=== PATIENT | female | born 1980 | race Caucasian/White ===

== ENCOUNTER 2021-06-19 20:46 | Emergency (ER) | payer MEDICAID, SELFPAY ==
[2021-06-19 20:47] VITALS: BP 132/97; PULSE 94; RESP 18; TEMP 36.3; O2SAT 97; BMI 25.7
[2021-06-19] MEDS: 0.9% Normal Saline 1,000 ML 1000 ML IV (21:54)
[2021-06-19 21:55] LABS: Absolute Lymphocyte Count 1.83 X10^3/uL (0.83-4.51); Absolute Neutrophil Count 11.7 X10^3/uL (2.0-7.7); Basophil# 0.06 X10^3/uL; Basophil% 0.4 % (0-1); Eosinophil# 0.07 X10^3/uL; Eosinophils% 0.5 % (0-5); Hemoglobin 14.6 g/dL (12.0-15.0); Lymphocyte # 1.83 X10^3/ul (0.83-4.51); Lymphocyte % 12.9 % (19-41); Mean Corpuscular Hgb 30.5 pg (27.0-32.0); Mean Corpuscular Volume 89.8 fL (81-99); Mean Platelet Vol. 9.8 fl (6.2-12.0); Monocyte# 0.45 X10^3/uL; Monocyte% 3.2 % (0-10); NRBC Flagged by Analyzer 0 % (0-5); Neutrophil # 11.67 X10^3/uL (2.7-7.7); Neutrophil % 82.5 % (47-70); Platelet Count 363 K/mm3 (150-450); RBC Distribution Width CV 14.4 % (11.6-14.6); RBC Distribution Width SD 47.6 fl (35.1-43.9); Red Blood Count 4.79 M/mm3 (4.2-5.4); White Blood Count 14.2 K/mm3 (4.4-11.0)
[2021-06-19] MEDS: Ondansetron 4 MG/2 ML Vial IV (21:56)
[2021-06-19] MEDS: LORazepam 2 MG/ML Syringe 0.5 MG IV (21:56)
[2021-06-19 22:04] LABS: Anion Gap 9 (5-15); BUN 10 mg/dL (7-18); BUN/Creat Ratio 11.8 RATIO (10-20); Calcium,Total 9.2 mg/dL (8.5-10.1); Chloride 101 mmol/L (98-107); Creatinine, Serum 0.85 mg/dL (0.55-1.02); EST Glomerular Filtration Rate 77 mL/min (>60); Est Glom Filt Rate - Afr Amer 94 mL/min (>60); Estimated Creatinine Clearance 73.69 ml/min; Glucose 129 mg/dL (74-106); Potassium 3.8 mmol/L (3.5-5.1); Sodium Level 136 mmol/L (136-145)
[2021-06-19 22:43] VITALS: BP 120/78; PULSE 76; RESP 14; O2SAT 98
--- NOTE | 2021-06-19 22:53 | EDS_ITS ---
HPI History of Present Illness Chief Complaint: Nausea/Vomiting Informant: patient Onset/Context/Timing Onset: Today Current Severity: Moderate Maximum Severity: Moderate Narrative Narrative: Patient presents secondary to nausea and vomiting along with anxiety and shakiness. Patient states 4 days ago her Prozac was stopped and she was started on Luvox. She began not feeling well yesterday and today progressed to the above symptoms. She was concerned that she was withdrawing from her Prozac so she did take a dose of that tonight. No fever or chills have been noted. [facility] Medical History Asthma Depression Mitral valve prolapse Home Medications albuterol sulfate 2.5 mg INHALATION Q4H PRN PRN 04/17/16 [History Last Taken Unknown] fluvoxamine 50 mg PO DAILY 06/19/21 [History Last Taken 06/18/21 20:00] hydroxyzine HCl [Atarax] 50 mg PO TID 06/19/21 [History Last Taken Unknown] ondansetron 4 mg PO Q8H PRN #10 tab 06/19/21 [Rx Last Taken Unknown] vit D3-folic pbge-I2-D1-B12 1 tab PO DAILY 06/19/21 [History Last Taken Unknown] Allergy/AdvReac Type Severity Reaction Status Date / Time clindamycin Allergy Hives Verified 06/19/21 20:47 erythromycin base Allergy Hives Verified 06/19/21 20:47 oxcarbazepine Allergy Hives Verified 06/19/21 20:47 [From Trileptal] Penicillins Allergy Hives Verified 06/19/21 20:47 pseudoephedrine AdvReac Vomiting Verified 06/19/21 20:47 Social History Smoking Status: Current every day smoker tobacco type: cigarettes ROS ROS ED Constitutional Constitutional ED: Denies chills or fever(s) Eyes Eyes: Denies change in vision ENT ENT ED: Denies sore throat Cardiovascular Cardiovascular: Denies chest pain Respiratory/Chest Respiratory/Chest: Denies cough or dyspnea Gastrointestinal Gastrointestinal: Reports nausea and vomiting; Denies abdominal pain or diarrhea Genitourinary Genitourinary ED: Denies dysuria Musculoskeletal Musculoskeletal: Reports myalgias; Denies back pain Integumentary Denies rash Neurologic Neurologic: Denies headache(s) or weakness Psychiatric Psychiatric: Reports anxiety; Denies depression Allergic/Immunologic Allergic/Immunologic ED: Denies urticaria EXAM Physical Exam Const Vital Signs: 06/19/21 20:47 06/19/21 22:43 06/19/21 22:56 Temperature 97.3 F L Temperature Source Temporal Pulse Rate 94 76 62 Respiratory Rate 18 14 15 Blood Pressure 132/97 H 120/78 112/73 Blood Pressure Mean 108 92 Pulse Ox 97 98 97 Oxygen Delivery Method Room Air Room Air Positive well nourished and well developed General Appearance ED: well developed Eyes PERRL and EOMs intact bilaterally Neck supple Chest Wall inspection of chest normal and palpation of chest normal Resp normal respiratory effort and clear to auscultation bilaterally Cardio regular rate and regular rhythm GI non-tender Auscultation: hypoactive bowel sounds Palpation: soft Neuro oriented x3 Sensorium / Orientation: alert Psych mental status grossly normal Skin no rashes or lesions noted MDM MDM MDM Narrative Medical decision making narrative: Patient is given IV fluids along with Zofran. She is given a small dose of Ativan help with anxiety. Lab work ordered. Lab Data Labs: Laboratory Results - last 24 hr 06/19/21 06/19/21 21:25 21:25 WBC 14.2 H RBC 4.79 Hgb 14.6 Hct 43.0 MCV 89.8 MCH 30.5 MCHC 34.0 RDW Std Deviation 47.6 H RDW Coeff of Pee 14.4 Plt Count 363 MPV 9.8 Immature Gran % (Auto) 0.500 Neut % (Auto) 82.5 H Lymph % (Auto) 12.[address] [place] % (Auto) 3.2 Eos % (Auto) 0.5 Baso % (Auto) 0.4 Absolute Neuts (auto) 11.7 H Absolute Lymphs (auto) 1.83 Nucleated RBC % 0 Sodium 136 Potassium 3.8 Chloride 101 Carbon Dioxide 26.0 Anion Gap 9 BUN 10 Creatinine 0.85 Estim Creat Clear Calc 73.69 Est GFR (MDRD) Af Amer 94 Est GFR (MDRD) Non-Af 77 BUN/Creatinine Ratio 11.8 Glucose 129 H Calcium 9.2 Treatment and Re-Evaluation Comments:: On repeat evaluation patient significantly improved. Vital signs unremarkable. I did discuss with her that I am concerned that the symptoms she had may be from stopping her Prozac and the Luvox not compromising enough to prevent her from having symptoms. I encouraged her to go back on her Prozac and call her doctor on Monday. She is given a prescription for Zofran help with nausea. Discharge Plan Triage Chief Complaint: Nausea/Vomiting ED Provider: Marium Sharp Dx/Rx/DC Orders Clinical Impression: Vomiting Instructions: ED Vomiting (Adult) Prescriptions: New ondansetron 4 mg tablet,disintegrating 4 mg PO Q8H PRN (Reason: nausea and vomiting) Qty: 10 RF: 0 No Action albuterol sulfate 2.5 MG/3 ML solution for nebulization 2.5 mg inhalation Q4H PRN PRN (Reason: Sob &/Or Wheezing) RF: 0 fluvoxamine 50 mg Tablet 50 mg PO DAILY RF: 0 hydroxyzine HCl [Atarax] 50 mg Tablet 50 mg PO TID RF: 0 vit D3-folic [id number]-[id number]-B12 2,000-800-0.32 unit-mcg-mg Tablet 1 tab PO DAILY RF: 0 Referrals: Shai Brand MD [STAFF PHYSICIAN] - 3-5 Days Disposition Disposition: Home, Self Care Discharge Date/Time: 06/19/21 23:40
[2021-06-19 22:56] VITALS: BP 112/73; PULSE 62; RESP 15; O2SAT 97
== END 2021-06-19 23:40 | disposition home or self-care (01) ==
PROVIDERS: Emergency Provider Emergency Medicine
DX: R11.2 Nausea with vomiting, unspecified (principal); F41.9 Anxiety disorder, unspecified; F17.210 Nicotine dependence, cigarettes, uncomplicated; F32.9 Major depressive disorder, single episode, unspecified; I34.1 Nonrheumatic mitral (valve) prolapse; J45.909 Unspecified asthma, uncomplicated
CPT/HCPCS: 80048; 85025; 96361; 96374; 96375; 99284; A4216; J2405

== ENCOUNTER 2021-09-01 16:10 | Emergency (ER) | payer MEDICAID, SELFPAY ==
[2021-09-01 16:11] VITALS: BP 122/85; PULSE 104; RESP 18; TEMP 37; O2SAT 96; BMI 27.8
--- NOTE | 2021-09-01 16:31 | EKG12_ITS ---
Test Reason : CP Blood Pressure : / mmHG Vent. Rate : 092 BPM Atrial Rate : 092 BPM P-R Int : 132 ms QRS Dur : 078 ms QT Int : 380 ms P-R-T Axes : 052 026 028 degrees QTc Int : 469 ms Normal sinus rhythm Nonspecific ST and T wave abnormality Abnormal ECG Confirmed by PRIETO MCLEAN, VINCENZO ([id number]), senior technical editor EITAN BRIGHT ([id number]) on 09/02/2021 1:31:15 PM Referred By: PL Confirmed By:PENG MOREAU MD
--- NOTE | 2021-09-01 16:32 | EDS_ITS ---
HPI History of Present Illness Chief Complaint: Chest Pain Narrative Narrative: Patient with past medical history of panic attacks states that she was recently diagnosed with familial hypercholesterolemia and was started on Lipitor yesterday. She presents with chest pain that began approximately an hour ago. She is concerned because I do not want to have a heart attack. She states that she has midsternal chest pain and she had sharp pain down her left arm. It did not radiate to her jaw. No nausea or vomiting. No shortness of breath, however she was recently diagnosed with COVID-19 6 days ago. Her symptoms of COVID-19 were not fever or cough but she had sore throat, and her son tested positive. She denies any exacerbating or alleviating factors with the exception that pacing around the room actually makes her pain better. She denies any leg swelling. Last menstrual period was 5 days ago but she has had bilateral tubal ligation and states that she is suazo and does not engage in sexual intercourse with men. PFSH PFS Medical History Asthma Depression Mitral valve prolapse Home Medications albuterol sulfate 2.5 mg INHALATION Q4H PRN PRN 04/17/16 [History Last Taken Unknown] fluvoxamine 50 mg PO DAILY 06/19/21 [History Last Taken 06/18/21 20:00] hydroxyzine HCl [Atarax] 50 mg PO TID 06/19/21 [History Last Taken Unknown] ondansetron 4 mg PO Q8H PRN #10 tab 06/19/21 [Rx Last Taken Unknown] vit D3-folic [id number]-[id number]-B12 1 tab PO DAILY 06/19/21 [History Last Taken Unknown] Allergy/AdvReac Type Severity Reaction Status Date / Time clindamycin Allergy Hives Verified 09/01/21 16:14 erythromycin base Allergy Hives Verified 09/01/21 16:14 oxcarbazepine Allergy Hives Verified 09/01/21 16:14 [From Trileptal] Penicillins Allergy Hives Verified 09/01/21 16:14 pseudoephedrine AdvReac Vomiting Verified 09/01/21 16:14 Social History Smoking Status: Current every day smoker tobacco type: cigarettes ROS ROS ED ROS Narrative Constitutional: No fever, no chills. HEENT: No sore throat. No neck pain. No loss of vision. No rhinorrhea. Cardiovascular: Positive left chest pain and heaviness. Radiated to and down left arm, but was sharp and stabbing. No palpitations. No pedal edema. Respiratory: No cough, no shortness of breath. Abdominal: No abdominal pain. No nausea. No vomiting. Genitourinary: No dysuria. No hematuria. Musculoskeletal: No myalgias. No arthralgias. Neurologic: No headaches. No dizziness. No lightheadedness. Skin: No rash. No change in color. Psychiatric: No depression. No anxiety. EXAM Physical Exam Narrative Exam Narrative: Afebrile. Vital signs noted. HEENT: Normocephalic. Atraumatic. PERRL, EOMI. Neck soft and supple. No point tenderness or step off. Cardiovascular: Regular rate and rhythm. Intermittent tachycardia no murmurs, rubs, or gallops appreciated. Respiratory: No tachypnea. Lungs clear to auscultation bilaterally. Gastrointestinal: Abdomen soft, nontender, with normoactive bowel sounds. No rebound or guarding. Neurological: Awake. Alert. Nonfocal, nonlateralizing. Skin: No rash. Normal color. No pallor. Musculoskeletal: No pedal edema. Full range of motion extremities. Const Vital Signs: 09/01/21 16:11 09/01/21 17:18 09/01/21 18:14 Temperature 98.6 F Temperature Source Temporal Pulse Rate 104 H 84 74 Respiratory Rate 18 14 14 Blood Pressure 122/85 H 114/76 111/77 Blood Pressure Mean 97 88 88 Pulse Ox 96 97 98 Oxygen Delivery Method Room Air Room Air Heart Score History: Slightly/Non-Suspicious ECG: Normal Age: </= 45 years Risk Factors: No Risk Factors Troponin: </= Normal Limit Score: 0 MDM MDM MDM Narrative Medical decision making narrative: Chest pain work-up was pursued. EKG dem onstrates normal sinus rhythm at 92 bpm without ectopy or acute ST changes, no significant change from previous. CBC is grossly unremarkable. Electrolyte panel shows sodium slightly low at 3.4. Initial high-sensitivity troponin negative at 4. Repeat high-sensitivity troponin also negative at 4 for a negative delta troponin. Chest x-ray shows no acute process. With her low heart score, I feel she can be discharged safely home with follow-up and she accepts the 2% risk of major coronary artery event in the next 6 weeks. She will follow-up with her primary care physician. I do feel that some of her chest pain may be associated with anxiety. Return instructions to the emergency department were reviewed. Disposition was discharged home in stable condition. Lab Data Attestation: I reviewed the patient's lab results. Labs: Laboratory Results - last 24 hr 09/01/21 09/01/21 09/01/21 16:40 16:40 18:40 WBC 8.5 RBC 4.60 Hgb 13.8 Hct 40.1 MCV 87.2 MCH 30.0 MCHC 34.4 RDW Std Deviation 43.0 RDW Coeff of Pee 13.4 Plt Count 336 MPV 9.3 Immature Gran % (Auto) 0.200 Neut % (Auto) 70.9 H Lymph % (Auto) 20.0 [place] % (Auto) 7.6 Eos % (Auto) 0.7 Baso % (Auto) 0.6 Absolute Neuts (auto) 6.0 Absolute Lymphs (auto) 1.69 Nucleated RBC % 0 Sodium 137 Potassium 3.4 L Chloride 100 Carbon Dioxide 28.0 Anion Gap 9 BUN 9 Creatinine 0.69 Estim Creat Clear Calc 90.78 Est GFR (MDRD) Af Amer 119 Est GFR (MDRD) Non-Af 98 BUN/Creatinine Ratio 13.0 Glucose 103 Calcium 8.9 Troponin I High Sens 4 4 Radiography Diagnostic Testing: Clinical Impression(s) from Imaging Studies Chest X-Ray 09/01/21 16:53 IMPRESSION: There are no acute findings. Electronically Signed: Alan Elizabeth MD at 17:06 EST , Service support , Discharge Plan Triage Chief Complaint: Chest Pain ED Provider: Nik Tomas Dx/Rx/DC Orders Clinical Impression: Chest pain, Panic attacks, COVID Instructions: Coronavirus Disease 2019 (COVID-19): Caring for Yourself or Others, ED Chest Pain, Uncertain Cause, ED Panic Attack Prescriptions: No Action albuterol sulfate 2.5 MG/3 ML solution for nebulization 2.5 mg inhalation Q4H PRN PRN (Reason: Sob &/Or Wheezing) RF: 0 fluvoxamine 50 mg Tablet 50 mg PO DAILY RF: 0 hydroxyzine HCl [Atarax] 50 mg Tablet 50 mg PO TID RF: 0 vit D3-folic yhfr-A2-X9-B12 2,000-800-0.32 unit-mcg-mg Tablet 1 tab PO DAILY RF: 0 ondansetron 4 mg tablet,disintegrating 4 mg PO Q8H PRN (Reason: nausea and vomiting) Qty: 10 RF: 0 Primary Care Provider: Meron Ram NP Referrals: Meron Ram NP, SLOT MACHINE KEY PERSON-C [Primary Care Provider] - Disposition Disposition: Home, Self Care
[2021-09-01 16:47] LABS: Absolute Lymphocyte Count 1.69 X10^3/uL (0.83-4.51); Basophil# 0.05 X10^3/uL; Basophil% 0.6 % (0-1); Eosinophil# 0.06 X10^3/uL; Eosinophils% 0.7 % (0-5); Hematocrit 40.1 % (37-47); Hemoglobin 13.8 g/dL (12.0-15.0); Lymphocyte # 1.69 X10^3/ul (0.83-4.51); Mean Corp Hgb Conc 34.4 g/dL (32-36); Mean Corpuscular Volume 87.2 fL (81-99); Mean Platelet Vol. 9.3 fl (6.2-12.0); Monocyte# 0.64 X10^3/uL; Monocyte% 7.6 % (0-10); NRBC Flagged by Analyzer 0 % (0-5); Neutrophil # 5.99 X10^3/uL (2.7-7.7); Neutrophil % 70.9 % (47-70); Platelet Count 336 K/mm3 (150-450); RBC Distribution Width CV 13.4 % (11.6-14.6); White Blood Count 8.5 K/mm3 (4.4-11.0)
--- NOTE | 2021-09-01 16:53 | RAD_ITS ---
STUDY: X-RAY CHEST REASON FOR EXAM: Female, 41 years old. CHEST PAIN chest pain TECHNIQUE: XR Chest 1 View COMPARISON: None FINDINGS: There is no demonstrated pleural abnormality. Normal size heart. Normal mediastinum and kurtis. Normal visualized pulmonary arteries. Normal visualized aortic arch and descending thoracic aorta. Normal visualized thoracic spine. Normal visualized ribs, clavicles, and shoulders. There is no demonstrated abnormality of the visualized soft tissue structures of the upper abdomen. RAD/Chest 1 View (Portable) IMPRESSION: There are no acute findings. Electronically Signed: Alan Elizabeth MD at 17:06 EST , Service support ,
[2021-09-01 17:06] LABS: Anion Gap 9 (5-15); BUN 9 mg/dL (7-18); Calcium,Total 8.9 mg/dL (8.5-10.1); Chloride 100 mmol/L (98-107); Creatinine, Serum 0.69 mg/dL (0.55-1.02); EST Glomerular Filtration Rate 98 mL/min (>60); Est Glom Filt Rate - Afr Amer 119 mL/min (>60); Estimated Creatinine Clearance 90.78 ml/min; Glucose 103 mg/dL (74-106); Potassium 3.4 mmol/L (3.5-5.1); Sodium Level 137 mmol/L (136-145); Troponin-I HS 4 pg/mL (3.0-54.0)
[2021-09-01 17:18] VITALS: BP 114/76; PULSE 84; RESP 14; O2SAT 97; O2SAT 98
[2021-09-01 18:14] VITALS: BP 111/77; PULSE 74; RESP 14; O2SAT 98
[2021-09-01 19:05] LABS: Troponin-I HS 4 pg/mL (3.0-54.0)
[2021-09-01 19:43] VITALS: BP 111/77; PULSE 74; RESP 13; O2SAT 98
== END 2021-09-01 19:47 | disposition home or self-care (01) ==
PROVIDERS: Emergency Provider Emergency Medicine; PCP Registered Nurse; Visit Provider Emergency Medicine
DX: U07.1 COVID-19 (principal); F41.0 Panic disorder [episodic paroxysmal anxiety]; R07.9 Chest pain, unspecified; F17.210 Nicotine dependence, cigarettes, uncomplicated
CPT/HCPCS: 71045; 80048; 84484; 85025; 93005; 99285; J7030

== ENCOUNTER 2022-08-31 17:49 | Emergency (ER) | payer MEDICAID, SELFPAY ==
[2022-08-31 17:49] VITALS: BP 113/83; PULSE 89; RESP 16; TEMP 36.2; O2SAT 95; BMI 26.6
--- NOTE | 2022-08-31 18:32 | EDS_ITS ---
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 She presents because of facial flushing and swelling, and throat tightening that happened after she took a shot of Amaretto at 5:10 PM, almost an hour and a half ago. She states she did not realize that there were almonds and apricot extract in the shot. She did not have to use her epinephrine. She became worried because of the facial swelling and throat tightening, but that has improved considerably. She came straight to the emergency department for evaluation. [facility] Medical History Asthma Depression Mitral valve prolapse Home Medications albuterol sulfate 2.5 mg/3 mL (0.083 %) solution for nebulization 2.5 mg inhalation Q4H PRN PRN Sob &/Or Wheezing 04/17/16 [History Last Taken Unknown] fluvoxamine 50 mg tablet 50 mg PO DAILY 06/19/21 [History Last Taken 06/18/21 20:00] hydroxyzine HCl 50 mg tablet 50 mg PO TID 06/19/21 [History Last Taken Unknown] ondansetron 4 mg disintegrating tablet 4 mg PO Q8H PRN nausea and vomiting #10 tabs 06/19/21 [Rx Last Taken Unknown] vit D3-folic acid-vit B2-B6-B12 2,000 unit-800 mcg-0.32 mg tablet 1 tab PO DAILY 06/19/21 [History Last Taken Unknown] Allergy/AdvReac Type Severity Reaction Status Date / Time clindamycin Allergy Hives Verified 08/31/22 17:51 erythromycin base Allergy Hives Verified 08/31/22 17:51 oxcarbazepine Allergy Hives Verified 08/31/22 17:51 [From Trileptal] Penicillins Allergy Hives Verified 08/31/22 17:51 tree nut [tree nuts] Allergy Swelling Verified 08/31/22 17:51 pseudoephedrine AdvReac Vomiting Verified 08/31/22 17:51 Social History Smoking Status: Current every day smoker tobacco type: cigarettes ROS ROS ED ROS Narrative Constitutional: No fever, no chills. HEENT: No sore throat. Positive throat tightening. Facial flushing and swelling. No neck pain. No loss of vision. No rhinorrhea. Cardiovascular: No chest pain. No palpitations. No pedal edema. Respiratory: No cough, no shortness of breath. Abdominal: No abdominal pain. No nausea. No vomiting. Genitourinary: No dysuria. No hematuria. Musculoskeletal: No myalgias. No arthralgias. Neurologic: No headaches. No dizziness. No lightheadedness. Skin: No rash. No change in color. Psychiatric: No depression. No anxiety. EXAM Physical Exam Narrative Exam Narrative: Afebrile. Vital signs noted. HEENT: Normocephalic. Atraumatic. PERRL, EOMI. Neck soft and supple. No point tenderness or step off. Airway patent. No drooling or trismus. Minimal facial flushing. No appreciable swelling around eyes. No angioedema. No Kirk angina. Cardiovascular: Regular rate and rhythm. No murmurs, rubs, or gallops appreciated. Respiratory: No tachypnea. Lungs clear to auscultation bilaterally. No wheezing. Gastrointestinal: Abdomen soft, nontender, with normoactive bowel sounds. No rebound or guarding. Neurological: Awake. Alert. Nonfocal, nonlateralizing. Skin: No rash. Normal color. No pallor. Musculoskeletal: No pedal edema. Full range of motion extremities. Const Vital Signs: 08/31/22 17:49 08/31/22 19:49 Temperature 97.2 F L Temperature Source Temporal Pulse Rate 89 Respiratory Rate 16 15 Blood Pressure 113/83 H Blood Pressure Mean 93 Pulse Ox 95 98 Oxygen Delivery Method Room Air Room Air MDM MDM MDM Narrative Medical decision making narrative: Patient was given Benadryl 25 mg orally. She is not hypotensive or tachycardic. Pulse ox is 95% on room air without evidence of hypoxia. I do not feel that epinephrine is currently indicated. She was told to avoid use of this substance in the future as there are tree nuts and apricots contained within that alcohol. I discussed use of steroids with her and she declined. I do not necessarily feel that other histamine blockers are indicated. This was most likely only 1 ounce to 1-1/2 ounces of the liquor that she had in a shot. After observation in the emergency department for approximately 2 hours and 45 minutes, repeat examination was performed. She has less swelling around her eyes and she states her face does not feel flushed. Her airway remains patent and her pulse ox is 98% on room air. I do feel that this has been approximately 4 hours since the ingestion of her allergen, and that she is less likely to have a delayed reaction. I feel she can be discharged safely home with follow-up. She still has her EpiPen should she need it. She will continue [id number] Benadryl 25 to 50 mg by mouth every 4-6 hours as needed especially over the next 48 hours. She will follow-up with her primary care provider. I feel she can be discharged safely home with follow-up. Return instructions to the emergency department were reviewed. Disposition is discharged home in stable condition. Discharge Plan Triage Chief Complaint: Allergic Reaction ED Provider: Nik Tomas Dx/Rx/DC Orders Clinical Impression: Allergic reaction, Facial flushing Instructions: ED General Allergic Reactions Prescriptions: No Action albuterol sulfate 2.5 MG/3 ML solution for nebulization 2.5 mg inhalation Q4H PRN PRN (Reason: Sob &/Or Wheezing) fluvoxamine 50 mg Tablet 50 mg PO DAILY hydroxyzine HCl [Atarax] 50 mg Tablet 50 mg PO TID vit D3-folic gzpf-S0-P1-B12 2,000-800-0.32 unit-mcg-mg Tablet 1 tab PO DAILY ondansetron 4 mg tablet,disintegrating 4 mg PO Q8H PRN (Reason: nausea and vomiting) Qty: 10 0RF Primary Care Provider: Meron Ram NP Referrals: Meron Ram NP, CUSTOMER ENERGY SPECIALIST-C [Primary Care Provider] - 3-5 Days if not improving Activity Restrictions/Additional Instructions: You may continue Benadryl 25 to 50 mg by mouth every 4-6 hours as needed, especially over the next 2 days. Avoid use or consumption of amaretto in the future. Disposition Disposition: Home, Self Care
[2022-08-31] MEDS: DiphenhydrAMINE 25 MG Capsule PO (18:45)
[2022-08-31 19:49] VITALS: RESP 15; O2SAT 98
[2022-08-31 20:52] VITALS: BP 115/74; PULSE 65; RESP 18; O2SAT 97
== END 2022-08-31 20:52 | disposition home or self-care (01) ==
PROVIDERS: Emergency Provider Emergency Medicine; PCP Registered Nurse; Visit Provider Emergency Medicine
DX: T78.40XA Allergy, unspecified, initial encounter (principal); F17.210 Nicotine dependence, cigarettes, uncomplicated; J45.909 Unspecified asthma, uncomplicated; F32.A Depression, unspecified; R23.2 Flushing
CPT/HCPCS: 99283; A4216

== ENCOUNTER 2023-02-23 08:32 | Day surgery (SDC) | payer MEDICAID, SELFPAY ==
[2023-02-23] VITALS (7 sets, daily range): BP systolic 101–110; BP diastolic 66–81; PULSE 55–85; RESP 16–18; TEMP 36.3–37; O2SAT 99–100; BMI 27.5
--- NOTE | 2023-02-23 | COLBX_PTH ---
PATIENT: CHARMAINE JARA LOC: EN U#:[id number] AGE/SX: 42/F ROOM: RE02/23/[address]: Dr. Bradley Silva DO : 1980 BED: DIS: 02/23/2023 SPEC #: [id number] RECD: 02/23/23 13:15 STATUS: MORIS BELLE #: [id number] JORDYN: 02/23/23 00:[address]: Bradley Silva DEPT: SURGICAL PATHOLOGY RECD BY: Jayna Sanders ENTERED: 02/23/23 14:08 SP TYPE: COLON BX OTHR DR: Meron Ram, MARKETING TECHNOLOGIST-C Tissues: A - Duodenum, NOS B - Esophagus, NOS Procedures: Special Stain Group II Surgery Specimen Level IV Alcian Blue/PAS (control) HEADER OPERATION: Colonoscopy, EGD ([facility] [place]), biopsy PRE-OP DIAGNOSIS: Regurgitation of food, family history colon cancer TISSUE SUBMITTED: A - Duodenum biopsy, B - Distal esophagus biopsy MICROSCOPIC DIAGNOSIS A. Duodenum, biopsy: Fragments of duodenal mucosa, no pathologic diagnosis. B. Distal esophagus, biopsy: Fragments of gastroesophageal mucosa with focal minimal intestinal metaplasia (goblet cell metaplasia). Negative for dysplasia. See comment. DARRICK:mandi 02/24/2023 COMMENT B. Alcian blue/PAS stain with matched control is used in the evaluation of the specimen. MICROSCOPIC DESCRIPTION Slides are reviewed. GROSS DESCRIPTION A - Received in fixative is one container labeled with the patient's name and designated duodenum biopsy. The specimen consists of multiple irregular fragments of light graff soft tissue that in aggregate measure 1.0 x 0.4 x 0.1 cm. The specimen is totally submitted in one cassette. B - Received in fixative is one container labeled with the patient's name and designated distal esophagus biopsy. The specimen consists of multiple irregular fragments of light graff soft tissue that in aggregate measure 1.2 x 0.4 x 0.1 cm. The specimen is totally submitted in one cassette. / DARRICK:mandi 02/23/2023 TC:3 CPT: 64598 x2, 27247
[2023-02-23] MEDS: Lactated Ringers 1,000 ML 15 ML IV (08:45)
--- NOTE | 2023-02-23 09:23 | PCM.HP.BLA ---
History and Physical Date of Admission: 02/23/23 FH colon cancer Details: CHARMAINE JARA, is a 42 F who presents to the office today in need of colonoscopy due to FH colon cancer. Her father was diagnosed with stage 4 colon cancer age 58. Her mother had a severe paraesophageal hernia. Pt has been told she has a small hiatal hernia. No prior endoscopies. She gets regurgitation 1-2x per week, occurs when she lies down after dinner, or from oily food or citrus. Used to take Pepcid but it didn't help. No heartburn or dysphagia. No abdominal pain. No nausea or vomiting. No diarrhea, constipation, melena, hematochezia. PMH: asthma, depression, anxiety, mitral valve prolapse PSH: , appy Exam Const General: cooperative, healthy appearing and comfortable Orientation: alert, awake and oriented x3 HENMT Head: normal to inspection Eyes General: appearance normal, both eyes and all related structures Resp Effort & Inspection: normal respiratory effort GI Inspection: normal to inspection Skin General: no rashes or lesions noted Neuro Speech: speech normal Psych Mood: congruent mood Quality Reporting Tobacco Screening ([facility] 138) Smoking Status: Current every day smoker Assessment and Plan Assessment and Plan (1) Regurgitation of food: Status: Chronic Plan: 42 yr old female with regurgitation, FH colon cancer. We discussed hiatal hernia. She will avoid lying down after eating. She is almost 43 yr, age to start colonoscopy screening. Will get EGD and colonoscopy, with office f/u 2 wks later. (2) FH: colon cancer in first degree relative <60 years old: Status: Acute Plan: see above Medications: Discontinued ondansetron Discontinued Reason: Pt no longer taking 4 mg PO Q8H PRN 10 tabs 0RF nausea and vomiting I have examined the patient and the H&P has been reviewed. There are no clinical changes since date of exam.
--- NOTE | 2023-02-23 10:08 | OP.CCLET_ITS ---
02/23/2023 Meron Rma Re : Upper GI endoscopy procedure for Freya Nice Dear Yo This procedure was performed on February. My impressions and recommendations are as follows: Impressions : - LA Grade B reflux esophagitis. Biopsied. - Medium-sized hiatal hernia. - Duodenitis. Biopsied. Recommendations : - Discharge patient to home. - Resume previous diet. - Continue present medications. - Await pathology results. My findings are described in the full procedure note, which is enclosed. If I can be of further assistance, please feel free to contact me at . Sincerely, Bradley Silva, 02/23/2023 10:07:13 AM This report has been signed electronically.
--- NOTE | 2023-02-23 10:08 | OP.EGD_ITS ---
Patient Name: Freya Nice Procedure Date: 02/23/2023 9:25 AM Date of : 1980 Age: 42 Procedure: Upper GI endoscopy Indications: Heartburn Providers: Bradley Silva DO Referring MD: Bradley Silva DO Medicines: Monitored Anesthesia Care Patient Profile: This is a 42 year old female. Refer to note in patient chart for documentation of history and physical. Patient has symptoms. Complications: No immediate complications. Procedure: Pre-Anesthesia Assessment: - Prior to the procedure, a History and Physical was performed, and patient medications and allergies were reviewed. The patient is competent. The risks and benefits of the procedure and the sedation options and risks were discussed with the patient. All questions were answered and informed consent was obtained. Patient identification and proposed procedure were verified by the physician in the pre-procedure area. Mental Status Examination: alert and oriented. Airway Examination: normal oropharyngeal airway and neck mobility. Respiratory Examination: clear to auscultation. CV Examination: normal. Prophylactic Antibiotics: The patient does not require prophylactic antibiotics. Prior Anticoagulants: The patient has taken no previous anticoagulant or antiplatelet agents. ASA Grade Assessment: II - A patient with mild systemic disease. After reviewing the risks and benefits, the patient was deemed in satisfactory condition to undergo the procedure. The anesthesia plan was to use monitored anesthesia care (MAC). Immediately prior to administration of medications, the patient was re-assessed for adequacy to receive sedatives. The heart rate, respiratory rate, oxygen saturations, blood pressure, adequacy of pulmonary ventilation, and response to care were monitored throughout the procedure. The physical status of the patient was re-assessed after the procedure. After obtaining informed consent, the endoscope was passed under direct vision. Throughout the procedure, the patient's blood pressure, pulse, and oxygen saturations were monitored continuously. The colonoscope was introduced through the mouth, and advanced to the second part of duodenum. The upper GI endoscopy was accomplished without difficulty. The patient tolerated the procedure well. Scope In: 9:39:56 AM Scope Out: 9:45:34 AM Total Procedure Duration Time 0 hours 5 minutes 38 seconds Findings: LA Grade B (one or more mucosal breaks greater than 5 mm, not extending between the tops of two mucosal folds) esophagitis with no bleeding was found 35 to 39 cm from the incisors. Biopsies were taken with a cold forceps for histology. Verification of patient identification for the specimen was done. Estimated blood loss was minimal. A medium-sized hiatal hernia was present. No other significant abnormalities were identified in a careful examination of the stomach. Patchy mild inflammation characterized by congestion (edema), erosions and erythema was found in the duodenal bulb. Biopsies were taken with a cold forceps for histology. Verification of patient identification for the specimen was done. Estimated blood loss was minimal. Impression: - LA Grade B reflux esophagitis. Biopsied. - Medium-sized hiatal hernia. - Duodenitis. Biopsied. Recommendation: - Discharge patient to home. - Resume previous diet. - Continue present medications. - Await pathology results. Procedure Code(s): --- Professional --- 60526, Esophagogastroduodenoscopy, flexible, transoral; with biopsy, single or multiple CPT copyright 2017 [employer]. All rights reserved. The codes documented in this report are preliminary and upon medtronics technician review may be revised to meet current compliance requirements. Bradley Silva DO 02/23/2023 10:07:13 AM This report has been signed electronically. Number of Addenda: 0 Note Initiated On: 02/23/2023 9:25 AM
--- NOTE | 2023-02-23 10:12 | OP.COLON_ITS ---
Patient Name: Freya Nice Procedure Date: 02/23/2023 9:45 AM Date of : 1980 Age: 42 Procedure: Colonoscopy Indications: Screening for colorectal malignant neoplasm Providers: Bradley Silva DO Referring MD: Bradley Silva DO Medicines: Monitored Anesthesia Care Patient Profile: This is a 42 year old female. Refer to note in patient chart for documentation of history and physical. Patient has symptoms. Last Colonoscopy: none. The patient's first colonoscopy is today. Complications: No immediate complications. Procedure: Pre-Anesthesia Assessment: - Prior to the procedure, a History and Physical was performed, and patient medications and allergies were reviewed. The patient is competent. The risks and benefits of the procedure and the sedation options and risks were discussed with the patient. All questions were answered and informed consent was obtained. Patient identification and proposed procedure were verified by the physician in the pre-procedure area. Mental Status Examination: alert and oriented. Airway Examination: normal oropharyngeal airway and neck mobility. Respiratory Examination: clear to auscultation. CV Examination: normal. Prophylactic Antibiotics: The patient does not require prophylactic antibiotics. Prior Anticoagulants: The patient has taken no previous anticoagulant or antiplatelet agents. ASA Grade Assessment: II - A patient with mild systemic disease. After reviewing the risks and benefits, the patient was deemed in satisfactory condition to undergo the procedure. The anesthesia plan was to use monitored anesthesia care (MAC). Immediately prior to administration of medications, the patient was re-assessed for adequacy to receive sedatives. The heart rate, respiratory rate, oxygen saturations, blood pressure, adequacy of pulmonary ventilation, and response to care were monitored throughout the procedure. The physical status of the patient was re-assessed after the procedure. After I obtained informed consent, the scope was passed under direct vision. Throughout the procedure, the patient's blood pressure, pulse, and oxygen saturations were monitored continuously. The colonoscope was introduced through the anus and advanced to the cecum, identified by appendiceal orifice and ileocecal valve. The colonoscopy was performed without difficulty. The patient tolerated the procedure well. The quality of the bowel preparation was adequate. Scope In: 9:47:41 AM Scope Withdrawal Time 0 hours 7 minutes 12 seconds Scope Out: 9:58:59 AM Total Procedure Duration Time 0 hours 11 minutes 18 seconds Findings: The perianal and digital rectal examinations were normal. A few small-mouthed diverticula were found in the sigmoid colon. The exam was otherwise without abnormality on direct and retroflexion views. Impression: - Diverticulosis in the sigmoid colon. - The examination was otherwise normal on direct and retroflexion views. - No specimens collected. Recommendation: - Discharge patient to home. - Resume previous diet. - Continue present medications. - Await pathology results. - Repeat colonoscopy in 10 years for screening purposes. Procedure Code(s): --- Professional --- G0121, Colorectal cancer screening; colonoscopy on individual not meeting criteria for high risk CPT copyright 2017 [employer]. All rights reserved. The codes documented in this report are preliminary and upon count team member review may be revised to meet current compliance requirements. Bradley Silva DO 02/23/2023 10:12:11 AM This report has been signed electronically. Number of Addenda: 0 Note Initiated On: 02/23/2023 9:45 AM
--- NOTE | 2023-02-23 10:13 | OP.CCLET_ITS ---
02/23/2023 Meron Ram Re : Colonoscopy procedure for Freya Nice Dear Yo This procedure was performed on February. My impressions and recommendations are as follows: Impressions : - Diverticulosis in the sigmoid colon. - The examination was otherwise normal on direct and retroflexion views. - No specimens collected. Recommendations : - Discharge patient to home. - Resume previous diet. - Continue present medications. - Await pathology results. - Repeat colonoscopy in 10 years for screening purposes. My findings are described in the full procedure note, which is enclosed. If I can be of further assistance, please feel free to contact me at . Sincerely, Bradley Silva, 02/23/2023 10:12:11 AM This report has been signed electronically.
== END 2023-02-23 11:11 | disposition home or self-care (01) ==
LOC: EN 08:33 → AC 08:35
PROVIDERS: PCP Registered Nurse; Referring Provider Registered Nurse; Visit Provider Internal Medicine Gastroenterology
PROC: 0DJD8ZZ Inspection of Lower Intestinal Tract, Via Natural or Artificial Opening Endoscopic (ICD-10-PCS; CPT 45378; principal; 2023-02-23 09:25)
DX: Z12.11 Encounter for screening for malignant neoplasm of colon (principal); K44.9 Diaphragmatic hernia without obstruction or gangrene; K21.00 Gastro-esophageal reflux disease with esophagitis, without bleeding; F17.200 Nicotine dependence, unspecified, uncomplicated; K57.30 Diverticulosis of large intestine without perforation or abscess without bleeding; K29.80 Duodenitis without bleeding; Z80.0 Family history of malignant neoplasm of digestive organs
CPT/HCPCS: 43239; 45378; 88305; 88313; J7120; J2405

== ENCOUNTER 2023-02-24 12:31 | Emergency (ER) | payer MEDICAID, SELFPAY ==
[2023-02-24 12:32] VITALS: BP 114/75; PULSE 85; RESP 18; TEMP 36.1; O2SAT 98; BMI 27.2
--- NOTE | 2023-02-24 13:24 | EDS_ITS ---
HPI History of Present Illness Chief Complaint: Allergic Reaction Informant: patient Onset/Context/Timing Onset: Today Context: Sudden Onset Timing: Continuous Quality: Redness, swelling Location: Face, neck, and upper chest Worsened by: Nothing Relieved by: Nothing Narrative Narrative: Patient presents with possible allergic reaction that began yesterday. Patient had endoscopy done yesterday and was started on Protonix. Patient states that she took a dose last night and felt some facial flushing and redness. Patient states this did go away last night. Patient states she took another dose again today and started having similar symptoms. Patient states that her symptoms are starting to improve. Patient noted some redness and swelling to her face, neck, and upper chest. Patient denies any difficulty breathing or difficulty swallowing. Patient denies any fevers or chills. [facility] Medical History Anxiety Asthma Back pain Cardiology follow-up encounter Chest pain Depression Dietary restriction Esophagitis determined by endoscopy Former smoker Gastric reflux GERD (gastroesophageal reflux disease) High cholesterol History of echocardiogram History of hiatal hernia History of IBS Low iron Marijuana use Mitral valve prolapse OCD (obsessive compulsive disorder) Restless legs Home Medications albuterol sulfate 2.5 mg/3 mL (0.083 %) solution for nebulization 2.5 mg inhalation Q4H PRN PRN Sob &/Or Wheezing 04/17/16 [History Last Taken Unknown] fluvoxamine 50 mg tablet 50 mg PO DAILY 06/19/21 [History Last Taken 06/18/21 20:00] hydroxyzine HCl 50 mg tablet 50 mg PO TID 06/19/21 [History Last Taken Unknown] vit D3-folic acid-vit B2-B6-B12 2,000 unit-800 mcg-0.32 mg tablet 1 tab PO DAILY 06/19/21 [History Last Taken Unknown] albuterol 1 inh inhalation PRN 02/22/23 [History Last Taken Unknown] atorvastatin 20 mg tablet (Lipitor) 20 mg PO QHS 02/22/23 [History Last Taken Unknown] budesonide-formoterol HFA 160 mcg-4.5 mcg/actuation aerosol inhaler (Symbicort) inhalation 02/24/23 [History Last Taken Unknown] cetirizine 10 mg tablet mg 02/24/23 [History Last Taken Unknown] famotidine 20 mg tablet 20 mg PO BID #28 TABLETS 02/24/23 [Rx Last Taken Unknown] Allergy/AdvReac Type Severity Reaction Status Date / Time pantoprazole Allergy Intermediate Hives Verified 02/24/23 12:34 clindamycin Allergy Hives Verified 02/23/23 08:54 erythromycin base Allergy Hives Verified 02/23/23 08:54 oxcarbazepine Allergy Hives Verified 02/23/23 08:54 [From Trileptal] Penicillins Allergy Hives Verified 02/23/23 08:54 tree nut [tree nuts] Allergy Swelling Verified 02/23/23 08:54 pseudoephedrine AdvReac Vomiting Verified 02/23/23 08:54 Surgical History H/O section History of appendectomy Social History Smoking Status: Former smoker ROS ROS ED Constitutional Constitutional ED: Denies chills or fever(s) Eyes Eyes: Denies blurry vision or change in vision ENT ENT ED: Reports sore throat; Denies rhinorrhea Cardiovascular Cardiovascular: Denies chest pain or palpitations Respiratory/Chest Respiratory/Chest: Denies cough or dyspnea Gastrointestinal Gastrointestinal: Denies nausea or vomiting Genitourinary Genitourinary ED: Denies dysuria or hematuria Musculoskeletal Musculoskeletal: Denies back pain or neck pain Integumentary Reports rash; Denies abscess Neurologic Neurologic: Denies headache(s) or weakness Allergic/Immunologic Allergic/Immunologic ED: Denies mouth swelling or urticaria EXAM Physical Exam Const Vital Signs: 02/24/23 12:32 Temperature 97 F L Temperature Source Temporal Pulse Rate 85 Respiratory Rate 18 Blood Pressure 114/75 Blood Pressure Mean 88 Pulse Ox 98 Oxygen Delivery Method Room Air Positive well nourished and well developed General Appearance ED: well developed and NAD HEENT Reports moist mucous membranes HEENT Narrative: Oropharynx is clear. Airway is patent. There is no pharyngeal edema or erythema. Neck supple and no JVD Resp normal respiratory effort and clear to auscultation bilaterally Cardio regular rate, regular rhythm and no murmurs GI normal to inspection, nondistended, normoactive bowel sounds and non-tender Palpation: soft Extremity normal to inspection General Extremety ED: Negative for edema or tenderness General Extremity: Negative for edema Neuro oriented x3, CN's II-XII intact bilaterally and no sensory deficits noted Sensorium / Orientation: alert Motor Exam: strength 5/5 throughout Psych mental status grossly normal Skin Skin Narrative: There is some mild erythema over the face and anterior neck. There are no vesicles or pustules. There is no involvement of the mucous membranes. Oral mucosa is pink and moist. Oropharynx is clear. Airway is patent. There are no other lesions noted. There is no petechia noted. MDM MDM MDM Narrative Medical decision making narrative: Patient was advised that this could be a reaction to the pantoprazole. Patient was instructed to stop taking that. Case was discussed with Dr. Silva. He is agreeable to having the patient start Pepcid which she has had in the past and has done well with. Patient was instructed to follow-up with her primary care physician as well as Dr. Silva as scheduled. Patient understood and was agreeable with the plan. All questions were answered. Discharge Plan Triage Chief Complaint: Allergic Reaction Other Complaint: Rash ED Provider: Gómez Grey Dx/Rx/DC Orders Clinical Impression: Allergic reaction Instructions: ED General Allergic Reactions Prescriptions: New famotidine [famotidine] 20 mg tablet 20 mg PO BID Qty: 28 0RF Discontinued pantoprazole 40 mg tablet,delayed release (DR/EC) 40 mg PO Q12H 14 Days Qty: 60 5RF No Action albuterol sulfate 2.5 MG/3 ML solution for nebulization 2.5 mg inhalation Q4H PRN PRN (Reason: Sob &/Or Wheezing) fluvoxamine 50 mg Tablet 50 mg PO DAILY hydroxyzine HCl [Atarax] 50 mg Tablet 50 mg PO TID vit D3-folic vdja-L2-R0-B12 2,000-800-0.32 unit-mcg-mg Tablet 1 tab PO DAILY albuterol 1 inh inhalation PRN atorvastatin [Lipitor] 20 mg tablet 20 mg PO QHS cetirizine 10 mg tablet Patient Comments: TAKE 1 TABLET BY MOUTH ONCE DAILY budesonide-formoterol [Symbicort] 160-4.5 mcg/actuation HFA aerosol inhaler INHALATION Primary Care Provider: Meron Ram NP Referrals: Meron Ram NP, [facility] [Primary Care Provider] -
== END 2023-02-24 13:37 | disposition home or self-care (01) ==
LOC: ED 13:21
PROVIDERS: Emergency Provider Emergency Medicine; PCP Registered Nurse; Visit Provider Emergency Medicine
DX: R23.2 Flushing (principal); T47.1X5A Adverse effect of other antacids and anti-gastric-secretion drugs, initial encounter; Z87.891 Personal history of nicotine dependence; E78.00 Pure hypercholesterolemia, unspecified; J45.909 Unspecified asthma, uncomplicated; Z79.899 Other long term (current) drug therapy; F42.9 Obsessive-compulsive disorder, unspecified; F41.9 Anxiety disorder, unspecified; Z79.51 Long term (current) use of inhaled steroids
CPT/HCPCS: 99282

== ENCOUNTER 2023-09-12 19:11 | Emergency (ER) | payer MEDICAID, SELFPAY ==
[2023-09-12 19:12] VITALS: BP 122/69; PULSE 117; RESP 18; TEMP 35.8; O2SAT 98; BMI 29.0
--- NOTE | 2023-09-12 19:50 | ED.VIS.CHEST ---
HPI History of Present Illness Chief Complaint: Chest Pain Informant: patient Narrative Narrative: Patient presents about an hour or 2 after having an episode of palpitations, her heart rate felt fast right after she ate dinner with her significant other, she checked her heart rate and it was in the 120s which made her feel very anxious, and this led to her then feeling substernal dull chest discomfort and dyspnea, lightheadedness, this all made her feel more anxious. She feels like she had a panic attack, she has had this in the past but states the symptoms are always different when it happens. She has no history of heart problems except for mitral valve prolapse. She is on no beta-blockers for it. She states this all occurred about 4 hours after having an outpatient CT scan of her head and neck with IV contrast that was done at [facility] here in [place] because of having tinnitus. She showed me the results of the scan and it was normal aside from some anatomic abnormalities/discrepancies in her intracranial venous sinuses. She is feeling much better now. [facility] Medical History Anxiety Asthma Back pain Cardiology follow-up encounter Chest pain Depression Dietary restriction Esophagitis determined by endoscopy Former smoker Gastric reflux GERD (gastroesophageal reflux disease) High cholesterol History of echocardiogram History of hiatal hernia History of IBS Low iron Marijuana use Mitral valve prolapse OCD (obsessive compulsive disorder) Regurgitation of food Restless legs Home Medications albuterol sulfate 2.5 mg/3 mL (0.083 %) solution for nebulization 2.5 mg inhalation Q4H PRN PRN Sob &/Or Wheezing 04/17/16 [History Last Taken Unknown] fluvoxamine 50 mg tablet 50 mg PO DAILY 06/19/21 [History Last Taken 06/18/21 20:00] hydroxyzine HCl 50 mg tablet 50 mg PO TID 06/19/21 [History Last Taken Unknown] vit D3-folic acid-vit B2-B6-B12 2,000 unit-800 mcg-0.32 mg tablet 1 tab PO DAILY 06/19/21 [History Last Taken Unknown] albuterol 1 inh inhalation PRN 02/22/23 [History Last Taken Unknown] atorvastatin 20 mg tablet (Lipitor) 20 mg PO QHS 02/22/23 [History Last Taken Unknown] budesonide-formoterol HFA 160 mcg-4.5 mcg/actuation aerosol inhaler (Symbicort) inhalation 02/24/23 [History Last Taken Unknown] cetirizine 10 mg tablet mg 02/24/23 [History Last Taken Unknown] famotidine 20 mg tablet 20 mg PO BID #28 TABLETS 02/24/23 [Rx Last Taken Unknown] dexlansoprazole 30 mg capsule,biphase delayed release (Dexilant) 30 mg PO DAILY #30 caps 03/08/23 [Rx Last Taken Unknown] Allergy/AdvReac Type Severity Reaction Status Date / Time pantoprazole Allergy Intermediate Hives Verified 09/12/23 19:12 clindamycin Allergy Hives Verified 09/12/23 19:12 erythromycin base Allergy Hives Verified 09/12/23 19:12 oxcarbazepine Allergy Hives Verified 09/12/23 19:12 [From Trileptal] Penicillins Allergy Hives Verified 09/12/23 19:12 tree nut [tree nuts] Allergy Swelling Verified 09/12/23 19:12 pseudoephedrine AdvReac Vomiting Verified 09/12/23 19:12 Surgical History H/O section History of appendectomy Social History Smoking Status: Former smoker ROS ROS ED Constitutional Constitutional ED: Denies chills or fever(s) Eyes Eyes: Denies change in vision or diplopia ENT ENT ED: Denies rhinorrhea or sore throat Cardiovascular Cardiovascular: Reports chest pain, palpitations and racing heartbeat Respiratory/Chest Respiratory/Chest: Reports dyspnea; Denies cough Gastrointestinal Gastrointestinal: Denies abdominal pain, diarrhea, nausea or vomiting Genitourinary Genitourinary ED: Denies dysuria or hematuria Musculoskeletal Musculoskeletal: Denies back pain or neck pain Integumentary Denies abscess or rash Neurologic Neurologic: Denies headache(s), paresthesias or weakness Psychiatric Psychiatric: Reports anxiety; Denies suicidal thoughts EXAM Physical Exam Const Vital Signs: 09/12/23 19:12 09/12/23 19:24 09/12/23 19:59 Temperature 96.4 F L Temperature Source Temporal Pulse Rate 117 H Respiratory Rate 18 Respiratory Effort Normal Non-Labored Blood Pressure 122/69 H Blood Pressure Mean 86 Pulse Ox 98 99 Oxygen Delivery Method Room Air Room Air 09/12/23 20:11 09/12/23 21:11 Temperature Temperature Source Pulse Rate 102 H 92 Respiratory Rate 16 16 Respiratory Effort Blood Pressure 119/68 128/71 H Blood Pressure Mean 85 90 Pulse Ox 98 98 Oxygen Delivery Method Room Air Positive well nourished and well developed General Appearance ED: well developed and NAD HEENT Reports moist mucous membranes normocephalic and atraumatic Eyes PERRL and EOMs intact bilaterally Neck full ROM and supple Chest Wall inspection of chest normal and palpation of chest normal Resp normal respiratory effort and clear to auscultation bilaterally Cardio regular rate, regular rhythm and no murmurs Rate: other Other Details: 90's ; Negative for tachycardic Peripheral Pulses: pulses 2+ throughout GI non-tender and non-distended Auscultation: normoactive bowel sounds Palpation: soft Back/Spine no CVA tenderness General Back: other FROM Extremity normal to inspection General Extremety ED: Negative for edema, pulses abnormal or tenderness General Extremity: Negative for edema or pulses abnormal Neuro oriented x3, CN's II-XII intact bilaterally and no sensory deficits noted Sensorium / Orientation: awake and alert Motor Exam: strength 5/5 throughout Psych mental status grossly normal Skin no rashes or lesions noted and no wounds Heart Score History: Slightly/Non-Suspicious ECG: Normal Age: </= 45 years Risk Factors: No Risk Factors Troponin: </= Normal Limit Score: 0 MDM MDM MDM Narrative Medical decision making narrative: Initial EKG unremarkable, portable chest x-ray 1 view on my interpretation normal radiology in agreement. Patient was feeling better, but at 1 point she started feeling the symptoms come back again, more the palpitations and anxiety than chest discomfort or dyspnea although she had those a little as well. Repeated EKG, other than being mildly tachycardic it was exactly the same and unchanged with no dysrhythmia or ectopy. We added a D-dimer that was within normal limits ruling out PE in this patient with a low Wells score. Her workup is otherwise unremarkable including a negative troponin. Upon reevaluating her, without specific treatment she is feeling better and her blood pressure is 117/69, heart rate down to 89. With more discussion, it is at this time becoming evident that the patient went to a coffee shop after her CT shortly before the symptoms started and showed a large espresso containing coffee beverage. This indeed would explain all of her symptoms. For this reason I am canceling the second troponin, and reassuring her to go home and rest and drink noncaffeinated beverages and she is comfortable with that plan. For these reasons I do not think this is a reaction to the IV contrast. The timing of the symptoms and lack of any other symptoms such as edema, urticaria, pruritus does not suggest that the contrast is the cause. History & Record Review Discussion w/independent historian: Patient and Significant other Lab Data Attestation: I reviewed the patient's lab results. Labs: Laboratory Results - last 24 hr 09/12/23 19:56 WBC 11.9 H RBC 4.59 Hgb 14.1 Hct 42.1 MCV 91.7 MCH 30.7 MCHC 33.5 RDW Std Deviation 46.8 H RDW Coeff of Pee 14.0 Plt Count 349 MPV 9.5 Immature Gran % (Auto) 0.300 Neut % (Auto) 75.2 H Lymph % (Auto) 18.5 L [place] % (Auto) 4.6 Eos % (Auto) 0.9 Baso % (Auto) 0.5 Absolute Neuts (auto) 8.9 H Absolute Lymphs (auto) 2.20 Nucleated RBC % 0 D-Dimer Quant (PE/DVT) 0.42 Sodium 136 Potassium 3.6 Chloride 103 Carbon Dioxide 28.0 Anion Gap 5 BUN 9 Creatinine 0.88 Estim Creat Clear Calc 80.86 Est GFR (MDRD) Af Amer 89 Est GFR (MDRD) Non-Af 74 BUN/Creatinine Ratio 10.2 Glucose 147 H Calcium 9.4 Troponin I High Sens 3 Radiography Diagnostic Testing: Clinical Impression(s) from Imaging Studies Chest X-Ray 09/12/23 20:00 IMPRESSION: Normal x-ray examination of the chest. Electronically Signed: Jamal Mcnamara MD at 20:31 EST , Rhythm Strip Rhythm Strip: Sinus Rhythm Rate: 95 Ectopy: None EKG Initial EKG: Attestation: I personally reviewed and interpreted this EKG as follows: Interpretation: No Acute Injury Pattern and Sinus Tachycardia Prior EKG tracings: available for review Prior: Unchanged Follow-up EKG: Attestation: I personally reviewed and interpreted this EKG as follows: Interpretation: No Acute Injury Pattern and Sinus Tachycardia Prior EKG tracings: available for review Prior: Unchanged Discharge Plan Triage Chief Complaint: Chest Pain ED Provider: Jamal Armenta Dx/Rx/DC Orders Clinical Impression: Accidental caffeine overdose, Chest pain, unspecified Instructions: Understanding Heart Palpitations Prescriptions: No Action albuterol sulfate 2.5 MG/3 ML solution for nebulization 2.5 mg inhalation Q4H PRN PRN (Reason: Sob &/Or Wheezing) fluvoxamine 50 mg Tablet 50 mg PO DAILY hydroxyzine HCl [Atarax] 50 mg Tablet 50 mg PO TID vit D3-folic [id number]-B12 2,000-800-0.32 unit-mcg-mg Tablet 1 tab PO DAILY albuterol 1 inh inhalation PRN atorvastatin [Lipitor] 20 mg tablet 20 mg PO QHS cetirizine 10 mg tablet Patient Comments: TAKE 1 TABLET BY MOUTH ONCE DAILY budesonide-formoterol [Symbicort] 160-4.5 mcg/actuation HFA aerosol inhaler INHALATION famotidine [famotidine] 20 mg tablet 20 mg PO BID Qty: 28 0RF dexlansoprazole [Dexilant] 30 mg capsule,biphase delayed releas 30 mg PO DAILY Qty: 30 2RF Primary Care Provider: Meron Ram NP Referrals: Meron Ram NP, [facility] [Primary Care Provider] - As Needed Disposition Disposition: Home, Self Care Discharge Date/Time: 09/12/23 21:56
[2023-09-12 19:59] VITALS: O2SAT 99
--- NOTE | 2023-09-12 20:00 | RAD_ITS ---
STUDY: X-RAY CHEST REASON FOR EXAM: Female, 43 years old. Chest pain TECHNIQUE: Single AP portable view of the chest. COMPARISON: September 01, 2021 FINDINGS: There are monitoring devices. The lungs are clear and expanded. There is no demonstrated pleural abnormality. Normal size heart. Normal mediastinum and kurtis. Normal visualized pulmonary arteries. Normal visualized aortic arch and descending thoracic aorta. Normal visualized thoracic spine. Normal visualized ribs, clavicles, and shoulders. There is no demonstrated abnormality of the visualized soft tissue structures of the upper abdomen. RAD/Chest 1 View (Portable) IMPRESSION: Normal x-ray examination of the chest. Electronically Signed: Jamal Mcnamara MD at 20:31 EST ,
[2023-09-12 20:08] LABS: Absolute Neutrophil Count 8.9 X10^3/uL (2.0-7.7); Basophil# 0.06 X10^3/uL; Basophil% 0.5 % (0-1); Eosinophil# 0.11 X10^3/uL; Eosinophils% 0.9 % (0-5); Hematocrit 42.1 % (37-47); Hemoglobin 14.1 g/dL (12.0-15.0); Lymphocyte % 18.5 % (19-41); Mean Corp Hgb Conc 33.5 g/dL (32-36); Mean Corpuscular Hgb 30.7 pg (27.0-32.0); Mean Corpuscular Volume 91.7 fL (81-99); Mean Platelet Vol. 9.5 fl (6.2-12.0); Monocyte# 0.55 X10^3/uL; Monocyte% 4.6 % (0-10); NRBC Flagged by Analyzer 0 % (0-5); Neutrophil # 8.91 X10^3/uL (2.7-7.7); Neutrophil % 75.2 % (47-70); Platelet Count 349 K/mm3 (150-450); RBC Distribution Width SD 46.8 fl (35.1-43.9); Red Blood Count 4.59 M/mm3 (4.2-5.4); White Blood Count 11.9 K/mm3 (4.4-11.0)
[2023-09-12 20:11] VITALS: BP 119/68; PULSE 102; RESP 16; O2SAT 98
--- OUTSIDE RECORDS SUMMARY | 2023-09-12 20:16 | XMS RPT_ITS | CCD ---
Author Name Unknown Address [address] [place] [address] Organization [facility] Care Team Providers Care Rotary Furnace Tender Name Role Phone Karon Dumont Primary Care Provider Clifford Trivedi Primary Care Provider Charli Gallegos Primary Care Provider Khadijah Fuentes Primary Care Provider Khadijah Fuentes MD Primary Care Provider [phone] PHYSICIAN, NONE Primary Care Physician Unavailab le Haagen CLINICAL SALES CONSULTANT.AALIYAH, Meron Primary Care Provider Haagen CLINICAL SALES CONSULTANT.AALIYAH, Meron Primary Care Provider Haagen CLINICAL SALES CONSULTANT.Meron FISCHER Primary Care Provider Haagen CLINICAL SALES CONSULTANT.Meron FISCHER Primary Care Provider Artis Merino MD Primary Care Provider [phone] [place] Attending Unavailable ARTIS MERINO Primary Care Unavailable HARVEY, KAITLYNN Attending Unavailable HAAGEN, MERON Primary Care Unavailable HARVEY, KAITLYNN Referring Unavailable HAAGEN, MERON Primary Care Unavailable HARVEY, KAITLYNN Referring Unavailable HAAGEN, MERON Primary Care Unavailable HARVEY, KAITLYNN Attending Unavailable HAAGEN, MERON Referring Unavailable HAAGEN, MERON Primary Care Unavailable HAAGEN, MERON Primary Care Unavailable HAAGEN, MERON Attending Unavailable BELEN DAMON Attending Unavailable HAAGEN, MERON Primary Care Unavailable HAAGEN, MERON Referring Unavailable HAAGEN, MERON Primary Care Unavailable HAAGEN, MERON Attending Unavailable [facility] Unavailable [facility] MERON Attending Unavailable [facility] Unavailable GERARDO BRYSON Attending Unavailable [facility] Unavailable KAITLYNN SEXTON Referring Unavailable [facility] Unavailable Allergies Allergy Classification Reported Allergen(s) Allergy Type Date of Onset Reaction(s) Facility Adrenergic Agonists (3 sources) Pseudoephedrine Drug Allergy 03-29-20 16 [facility] Lactose (3 sources) Lactose Drug Allergy 01-24-20 Anaphylaxis [facility] Work Phone: macadamia nut allergenic extract (3 sources) macadamia nut allergenic extract Drug Allergy 05-27-20 20 [facility] Macrolides (antibiotic) (3 sources) Erythromycin Drug Allergy 03-29-20 16 [facility] Penicillins (antibiotic) (3 sources) Penicillins Drug Allergy 03-29-20 16 [facility] Quinolones (antibiotic) (3 sources) Ofloxacin Drug Allergy 06-07-20 17 Other (See Comments) [facility] (20 sources) Erythromycin; Translations: [ERYTHROMYCIN] Drug Allergy 05-13-20 15 Hives, Other: See Comments, Other [place] (20 sources) Ofloxacin; Translations: [OFLOXACIN] Drug Allergy 06-07-20 17 Other (See Comments), Other: See Comments, Other [place] (18 sources) Penicillins; Translations: [PENICILLINS] Propensity to adverse reactions to drug 05-13-20 15 [place] (17 sources) Pseudoephedrine Drug Allergy 03-29-20 16 [place] (20 sources) Clindamycin/Lincomy murphy Propensity to adverse reactions to drug 05-13-20 15 H[place] (18 sources) Guaifenesin & Derivatives Propensity to adverse reactions to drug 07-23-20 19 [place]aphylaxis [place] (20 sources) Lactose; Translations: [LACTOSE] Drug Allergy 01-24-20 20 [place]aphylaxis [place] (2 sources) Peanut-Containing Drug Products Propensity to adverse reactions to drug 01-28-20 20 [place]aphylaxis [place] (9 sources) macadamia nut allergenic extract; Translations: [MACADAMIA NUT OIL] Drug Allergy 05-27-20 20 [place] (6 sources) Adrenergic Beta-Antagonists Propensity to adverse reactions to drug 05-29-20 20 Other (See Comments) [place] (20 sources) Clindamycin; Translations: [CLINDAMYCIN] Drug Allergy 05-13-20 15 [facility] (7 sources) Penicillins Drug Allergy 05-13-20 15 [facility] (20 sources) Pseudoephedrine; Translations: [SUDAFED S.A.] Drug Allergy 11-26-19 07 GI Upset, Vomiting [facility] (20 sources) Penicillins Drug Allergy 05-13-20 15 [facility] (19 sources) guaiFENesin; Translations: [GUAIFENESIN] Drug Allergy 07-23-20 19 Anaphylaxis [facility] (19 sources) OXcarbazepine; Translations: [OXCARBAZEPINE] Drug Allergy 06-19-20 21 [facility] (19 sources) tree nut, unspecified; Translations: [TREE NUTS] Propensity to adverse reactions to drug 03-28-20 22 GI Upset, Hives, Swelling [facility] (18 sources) Macadamia Nut Oil Drug Allergy 05-27-20 20 Other: See Comments [facility] (1 source) Lactose (non-medical use) Allergy to substance 01-24-20 20 Anaphylaxis [facility] (1 source) Macadamia nut Allergy to substance 05-27-20 20 Other, Hives, Swelling [facility] (1 source) Oxcarbazepine Allergy to substance 06-19-20 21 [facility] (1 source) Penicillins Drug Allergy 05-13-20 15 [facility] (1 source) Pseudoephedrine Drug Allergy 03-29-20 16 [facility] (3 sources) pantoprazole; Translations: [PANTOPRAZOLE] Drug Allergy 03-13-20 23 [facility] Medications Current Medications Medication Drug Class(es) Dates Sig (Normalized) Sig (Original) [id number] 200 actuat albuterol 0.09 mg/actuat metered dose inhaler (20 sources) beta2-Adrenergic Agonist Start: 09-28-2022 take 1 puff(s) by inhalation once as needed for wheezing albuterol 108 (90 Base) MCG/ACT inhaler Indications: Moderate persistent asthma without complication , Seasonal allergies INHALE TWO(2) PUFFS INTO LUNGS EVERY SIX(6) HOURS NEEDED FOR WHEEZING OR FOR SHORTNESS OF BREATH 54 g 2 09/28/2022 Active Completed/Discontinued Medications Medication Drug Class(es) Dates Sig (Normalized) Sig (Original) atorvastatin 20 mg oral tablet (20 sources) HMG-CoA Reductase Inhibitor Start: 04-26-2023 take 1 tablet by mouth once daily at bedtime for hyperlipidemia atorvastatin (LIPITOR) 20 mg tablet Indications: Hyperlipidemia, mixed Take 1 tablet by mouth daily at bedtime. For cholesterol. 30 tablet 3 04/26/2023 Active Problems Active Problems Problem Classification Problem Date Documented Date Episodic/Chronic Abdominal hernia (2 sources) Hiatal hernia; Translations: [Diaphragmatic hernia without obstruction or gangrene] Episodic Allergic reactions (2 sources) Allergic reaction; Translations: [Contact dermatitis] Episodic Anxiety disorders (10 sources) Anxiety; Translations: [Anxiety state] Onset: 08-05-2020 08-05-2020 Chronic Asthma (20 sources) Asthma; Translations: [Uncomplicated moderate persistent asthma] Onset: 06-05-2019 04-28-2016 Chronic Disorders of lipid metabolism (20 sources) Hyperlipidemia; Translations: [Hyperlipidemia, unspecified] Onset: 06-05-2019 06-05-2019 Chronic Esophageal disorders (4 sources) Gastroesophageal reflux disease; Translations: [Gastro-esophageal reflux disease without esophagitis] Onset: 03-13-2023 03-07-2023 Chronic Gastritis and duodenitis (1 source) Bile-induced gastritis; Translations: [Other gastritis without bleeding] Episodic Genitourinary symptoms and ill-defined conditions (1 source) Dysuria; Translations: [Dysuria] Episodic Heart valve disorders (20 sources) Mitral valve prolapse; Translations: [Nonrheumatic mitral (valve) prolapse] Onset: 08-05-2020 03-16-2017 Chronic Inflammation; infection of eye (except that caused by tuberculosis or sexually transmitteddisease) (1 source) Unspecified acute conjunctivitis, bilateral; Translations: [Acute conjunctivitis of both eyes, unspecified acute conjunctivitis type] Onset: 08-30-2023 Episodic Menopausal disorders (1 source) Perimenopausal state; Translations: [Menopausal and female climacteric states] Chronic Menstrual disorders (4 sources) Dysmenorrhea; Translations: [Dysmenorrhea, unspecified] Onset: 09-15-2022 Chronic Mood disorders (20 sources) Depressive disorder; Translations: [Recurrent major depressive episodes, moderate ] Onset: 03-31-2020 04-28-2016 Chronic Nutritional deficiencies (2 sources) Vitamin D deficiency; Translations: [Vitamin D deficiency, unspecified] Chronic Other connective tissue disease (2 sources) Pain in right lower limb; Translations: [Right leg pain] Episodic Other ear and sense organ disorders (1 source) Pulsatile tinnitus, unspecified ear; Translations: [Pulsatile tinnitus] Onset: 08-30-2023 Episodic Other endocrine disorders (1 source) Hyperestrogenism; Translations: [Estrogen excess] Chronic Other endocrine disorders (1 source) Estrogen excess; Translations: [Estrogen increased] Onset: 09-12-2022 Chronic Other female genital disorders (1 source) Abnormal uterine bleeding; Translations: [Abnormal uterine and vaginal bleeding, unspecified] Chronic Other hereditary and degenerative nervous system conditions (1 source) Restless legs; Translations: [Restless legs syndrome] Chronic Other lower respiratory disease (1 source) Cough; Translations: [Cough] Episodic Other skin disorders (1 source) Skin lesion; Translations: [Disorder of the skin and subcutaneous tissue, unspecified] Episodic Other upper respiratory disease (19 sources) Seasonal allergy; Translations: [Other seasonal allergic rhinitis] Onset: 06-05-2019 06-05-2019 Chronic Other upper respiratory disease (2 sources) Other seasonal allergic rhinitis; Translations: [Other seasonal allergic rhinitis] Onset: 06-02-2022 Chronic Other upper respiratory infections (1 source) Acute upper respiratory infection, unspecified; Translations: [Viral URI] Onset: 08-30-2023 Episodic Poisoning by nonmedicinal substances (1 source) Toxic effect of other specified noxious substances eaten as food, accidental (unintentional), initial encounter; Translations: [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 nut] Residual codes; unclassified (1 source) Family history of cancer of colon; Translations: [Family history of malignant neoplasm of digestive organs] Episodic Residual codes; unclassified (1 source) Screening due; Translations: [Need for lipid screening] Substance-related disorders (20 sources) Nicotine dependence; Translations: [Nicotine dependence, cigarettes, in remission] Onset: 08-05-2020 03-16-2017 Chronic Past or Other Problems Problem Classification Problem Date Documented Da te Episodic/Chronic Abdominal pain (4 sources) Epigastric pain; Translations: [Epigastric pain] Onset: 09-15-2022 Episodic Cardiac dysrhythmias (12 sources) Palpitations; Translations: [Palpitations] Onset: 08-05-2020 05-29-2020 Episodic Other ear and sense organ disorders (3 sources) Infective otitis externa of left ear; Translations: [Other infective otitis externa, left ear] Onset: 06-12-2017 Resolved: 06-05-2019 06-05-2019 Episodic Other ear and sense organ disorders (17 sources) Infective otitis externa of left ear; Translations: [Infective otitis externa, left] Onset: 06-12-2017 Resolved: 06-05-2019 06-12-2017 Other non-traumatic joint disorders (3 sources) Bilateral pain of joint of hands; Translations: [Pain in joints of right hand] Onset: 12-23-2020 12-23-2020 Episodic Other screening for suspected conditions (not mental disorders or infectious disease) (4 sources) Patient encounter status; Translations: [Encounter for screening for malignant neoplasm of colon] Onset: 09-21-2022 Episodic Other skin disorders (1 source) Disorder of the skin and subcutaneous tissue, unspecified; Translations: [Skin lesions] Onset: 02-07-2023 Episodic Peripheral and visceral atherosclerosis (13 sources) Intermittent claudication; Translations: [Peripheral vascular disease, unspecified] Onset: 03-31-2020 Resolved: 09-11-2020 03-31-2020 Chronic Skin and subcutaneous tissue infections (2 sources) Furuncle; Translations: [Furuncle, unspecified] Onset: 11-28-2022 Episodic Results Test Name Value Interpretation Reference Range Facil ity Vital Signs Date Time Vital Sign Value Performing Clinician Faci yesenia 03-13-2023 13:08-0400 Body height 162.6 cm Belen Damon PA-C Work Phone: [facility] 03-13-2023 13:08-0400 Body temperature 97.9 [degF] Belen Damon PA-C Work Phone: [facility] 03-13-2023 13:08-0400 Body weight 72.03 kg Belen Damon PA-C Work Phone: [facility] 03-13-2023 13:08-0400 Diastolic blood pressure 68 mm[Hg] Belen Marisol PA-C Work Phone: [facility] 03-13-2023 13:08-0400 Heart rate 98 /min Belen Italy PA-C Work Phone: [facility] 03-13-2023 13:08-0400 SaO2% (BldA) [Mass fraction] 96 % Belen Marisol PA-C Work Phone: [facility] 03-13-2023 13:08-0400 Systolic blood pressure 106 mm[Hg] Belen Marisol PA-C Work Phone: [facility] 03-01-2023 13:52-0400 Body height 162.6 cm Starr Kelly CLINICAL SALES CONSULTANT - MACHINE CAGE MAKER Work Phone: [facility] 03-01-2023 13:52-0400 Body mass index (BMI) [Ratio] 27.66 kg/m2 Starr Kelly CLINICAL SALES CONSULTANT - MACHINE CAGE MAKER Work Phone: [facility] 03-01-2023 13:52-0400 Body weight 73.12 kg Starr Kelly CLINICAL SALES CONSULTANT - MACHINE CAGE MAKER Work Phone: [facility] 03-01-2023 13:52-0400 Diastolic blood pressure 82 mm[Hg] Starr Kelly CLINICAL SALES CONSULTANT - MACHINE CAGE MAKER Work Phone: [facility] 03-01-2023 13:52-0400 Heart rate 100 /min Starr Kelly CLINICAL SALES CONSULTANT - MACHINE CAGE MAKER Work Phone: [facility] [employer] 03-01-2023 13:52-0400 Respiratory rate 20 /min Starr Kelly CLINICAL SALES CONSULTANT - MACHINE CAGE MAKER Work Phone: [facility] 03-01-2023 13:52-0400 SaO2% (BldA) [Mass fraction] 98 % Starr Kelly CLINICAL SALES CONSULTANT - MACHINE CAGE MAKER Work Phone: [facility] [employer] Encounters Encounter Date Encounter Type Care Provider Facility Start: 08-30-2023 End: 08-31-2023 [facility] Facility:[facility] Start: 05-02-2023 Refill Artis Merino MD Work Phone: [facility] Procedures Date Procedure Procedure Detail Performing Clinician Start: 09-21-2022 Mammography Ob Ultraso und Work Phone: Start: 09-15-2022 Us pelvic nonobstetr ic real-time image complete Kaitlynn Sexton CLINICAL SALES CONSULTANT.MACHINE CAGE MAKER Work Phone: Start: 08-30-2022 Us abdominal real ti me w/image limited Meron Ram CLINICAL SALES CONSULTANT.MACHINE CAGE MAKER Work Phone: Start: 08-30-2022 Lipid 1996 panel - S malachi or Plasma Artis Merino MD Work Phone: Start: 03-22-2022 Us breast uni real t donnie with image limited Meron Ram CLINICAL SALES CONSULTANT.MACHINE CAGE MAKER Work Phone: Start: 03-22-2022 WENDI DIAG W FRANCISCO LT Chri nakita Ram CLINICAL SALES CONSULTANT.MACHINE CAGE MAKER Work Phone: Start: 11-23-2021 Adult depression scr eening assessment Jared Carpio RN Start: 09-14-2021 Mammography Jared hernandez RN Start: 12-23-2020 XR HAND STANDARD BILATERAL Rohan Jimenez MD Work Phone: Start: 09-30-2020 Microscopic observat ion [Identifier] in Cervix by Cyto stain Starr Bay APRN - [facility] Work Phone: Start: 09-07-2020 Urnls dip stick/tabl et rgnt auto w/o microscopy Charli Gallegos Other Phone: Start: 08-20-2020 Assay of troponin quantitative Lillian Rebolledo Work Phone: Start: 08-20-2020 Basic metabolic pane l calcium total Lillian Rebolledo Work Phone: Start: 08-20-2020 Blood count complete auto&auto difrntl wbc Lillian Rebolledo Work Phone: Start: 08-20-2020 Ecg routine ecg w/le ast 12 lds w/i&r Mahamed R York Work Phone: Start: 08-13-2020 Assay of thyroid stimulating hormone tsh Charli Gallegos Other Phone: Start: 08-13-2020 Lipid panel Charli martinez Other Phone: Start: 07-31-2020 Dup-scan xtr veins unilateral/limited study Nathan Seaman Work Phone: Start: 07-30-2020 Ct angiography chest w/contrast/noncontrast Nathan Seaman Work Phone: Start: 07-30-2020 Urine test visual color cmprsn meths Nathan Seaman Work Phone: Start: 07-30-2020 Assay of troponin quantitative Nathan Seaman Work Phone: Start: 07-30-2020 Basic metabolic pane l calcium total Nathan Seaman Work Phone: Start: 07-30-2020 Blood count complete auto&auto difrntl wbc Nathan Seaman Work Phone: Start: 07-30-2020 Fibrin dgradj produc ts d-dimer quantitative Nathan Seaman Work Phone: Start: 10-21-2019 Brncdilat rspse spmt ry pre&post-brncdilat admn [place]arr Bay Work Phone: Start: 05-09-2019 Non-invas physiologi c std extremity art 2 level Karon Dumont Work Phone: Plan of Treatment Date Care Activity Detail Author Start: 2028 Shingles Vaccine (1 of 2) Shingles Vaccine (1 of 2) [facility] [place], [place] Start: 2028 Zoster Vaccines (1 of 2) Zoster Vaccines (1 of 2) [facility] Start: 08-30-2027 Lipid 1996 panel - Serum or Plasma Lipid Screening [facility] Start: 09-30-2025 Screening for malignant neoplasm of cervix [facility] Start: 08-30-2025 Diabetes Screening Diabetes Screening [facility] Start: 08-13-2025 Lipid panel Lipid screen [facility] Work Phone: Start: 05-03-2024 Lipid screen Lipid screen [facility] [place], [place] Start: 09-30-2023 Screening for malignant neoplasm of cervix Pap Smear [facility] Start: 09-21-2023 Mammography [facility] Start: 2023 Cologuard (FIT-DNA) Cologuard (FIT-DNA) [facility] Start: 2023 Colonoscopy Colonoscopy [facility] Start: 2023 Colorectal Cancer Screening Colorectal Cancer Screening [facility] Start: [address] COLONOGRAPHY [facility] Start: 2023 Fecal Occult Blood Fecal Occult Blood [facility] Start: 2023 SIGMOIDOSCOPY SIGMOIDOSCOPY [facility] Start: 04-21-2023 Covid-19 Vaccine () Covid-19 Vaccine () [facility] Start: 04-21-2023 Influenza vaccination [facility] Start: 11-23-2022 Adult depression screening assessment DEPRESSION SCREENING [facility] Start: 09-14-2022 Mammography MAMMOGRAM [facility] Start: 08-29-2022 End: 10-29-2022 25-hydroxyvitamin D3 [Mass/volume] in Serum or Plasma VITAMIN D 25 HYDROXY Lab Routine Vitamin D deficiency Expected: 08/29/2022, Expires: 10/29/2022 [facility] Work Phone: Immunizations Immunization Date Immunization Notes Care Provider Adelaide morales 01-01-2021 Pfizer SARS-CoV-2 Vaccination Starr Bay CLINICAL SALES CONSULTANT - MACHINE CAGE MAKER Work Phone: [facility] 12-11-2020 Pfizer SARS-CoV-2 Vaccination Starr Bay CLINICAL SALES CONSULTANT - MACHINE CAGE MAKER Work Phone: [facility] 05-27-2020 influenza, injectabl e, quadrivalent, preservative free Tonia Chew [facility] 05-27-2020 influenza virus vacc ine, unspecified formulation Starr Bay CLINICAL SALES CONSULTANT - MACHINE CAGE MAKER Work Phone: [facility] 05-31-2019 influenza, injectabl e, quadrivalent, preservative free Rohan Jimenez [facility] 06-08-2018 Influenza Vaccine, unspecified formulation [facility] 06-08-2018 influenza, seasonal, injectable Starr Kelly CLINICAL SALES CONSULTANT - MACHINE CAGE MAKER Work Phone: [facility] 11-30-2016 pneumococcal polysaccharide vaccine, 23 valent Rohan Jimenez [facility] 02-09-2010 tetanus toxoid, redu maría elena diphtheria toxoid, and acellular pertussis vaccine, adsorbed Rohan [facility] Payers Date Payer Category Payer Unknown [facility] MEDICAID xxxxxxxxxxx 2017-2019 CLAIMS DEPARTMENT [address] [place] [address] xxxxxxxxxxx [id number] 2014 Medicaid [place] [employer] [id number] 2014-Present [phone] [address] [place] [address] Medicaid [id number] 2014 Medicaid [id number] 2014 Unknown xxxxxxxxxxxx [id number] 2014 Unknown [id number] Social History Date Type Detail Facility Start: 05-31-1996 End: 01-29-2020 Tobacco smoking status NHIS [facility]: [facility] End: 07-30-2020 History of tobacco use Cigarette Smoker [place] Start: 05-02-2019 End: 01-10-2022 Cigarettes smoked current (pack per day) - Reported [facility] Start: 05-02-2019 End: 01-10-2022 Alcohol intake Yes [facility] Start: 05-02-2019 End: 06-11-2022 History SDOH Education 21 [place] Start: 05-02-2019 End: 11-27-2022 History SDOH Financial 3 [place] Start: 05-02-2019 End: 11-27-2022 History SDOH Food Worry 1 [place] Start: 05-02-2019 End: 11-27-2022 History SDOH Transport Med 2 [place] Start: 03-16-2018 End: 06-11-2022 Alcohol Comment socially [place] Sex Assigned At Not on file [place] Start: 07-23-2019 End: 09-30-2020 Alcohol intake Current drinker of alcohol (finding) [place] Exposure to SARS-CoV -2 (event) Unable to assess [place] Start: 01-24-2020 End: 01-29-2020 Alcohol intake Lifetime non-drinker (finding) [place] Start: 03-31-2020 End: 05-31-2022 Tobacco use and exposure Never used [place], [place] Start: 1980 Sex Assigned At Female M [place] Start: 12-11-2021 End: 03-01-2023 Exposure to SARS-CoV-2 (event) Not sure [place] Start: 12-16-2020 End: 05-31-2022 Tobacco smoking status NHIS Former smoker [facility] Work Phone: Start: 05-31-1996 End: 07-30-2020 History of tobacco use Current smoker [facility] Start: 12-16-2020 End: 08-29-2022 Alcohol intake Ex-drinker (finding) [facility] Work Phone: Start: 08-21-2021 History SDOH Stress 5 [facility] Start: 08-27-2021 End: 05-31-2022 Tobacco Comment quit smoking 1 year ago. occasional cigar. [facility] Start: 11-27-2022 History SDOH Alcohol Std Drinks 0 [facility] Start: 11-27-2022 History SDOH Stress 4 [facility] History of tobacco use Passive smoker [facility] Start: 08-20-2021 Gender identity Identifies as female gender (finding) [facility] Start: 08-20-2021 Sexual orientation Homosexual (findi ng) [facility] Do you belong to any clubs or organizations such as congregational groups, unions, fraternal or athletic groups, or school groups? No [facility] Are you now , , , , never or living with a partner? [facility] How often to you hav e a drink containing alcohol? Never [facility] How many standard dr inks containing alcohol do you have on a typical day? Patient does not drink [facility] How hard is it for y ou to pay for the very basics like food, housing, medical care, and heating Very hard [facility] Do you feel stress - tense, restless, nervous, or anxious, or unable to sleep at night because your mind is troubled all the time - these days [OSQ] Rather much [facility] (I/We) worried wheth er (my/our) food would run out before (I/we) got money to buy more. Often true [facility] In the past 12 month s, was there a time when you were not able to pay the mortgage or rent on time? Yes [facility] How hard is it for y ou to pay for the very basics like food, housing, medical care, and heating Hard [facility] Do you feel stress - tense, restless, nervous, or anxious, or unable to sleep at night because your mind is troubled all the time - these days [OSQ] Very much [facility] (I/We) worried wheth er (my/our) food would run out before (I/we) got money to buy more. Sometimes true [facility] Clinical Notes 12-07-2021 to 08-30-2023 Telephone Encounter - Amy Parkinson - 05/03/2023 8:10 AM Belen Marin PA-C - 03/27/2023 10:43 PM Aislinn Cerda LPN - 03/13/2023 1:08 PM BENTON Armas CNP - 03/01/2023 1:40 PM EDT Note Date & Type Note Facility 08-30-2023 Note HNO ID: [id number] Author: MERON RAM APRN.MACHINE CAGE MAKER Service: ? Author Type: Nurse Practitioner Type: Progress Notes Filed: 08/30/2023 13:12 Note Text: This is a 43 year old female who presents today with: Patient presents with: Acute Visit: Pulsatile tinnitus; URI symptoms with bilateral conjunctivitis HISTORY OF PRESENT ILLNESS: Charmaine Nice is a 43 year old female. Patient presents with: Acute Visit: Pulsatile tinnitus; URI symptoms with bilateral conjunctivitis Pt presents today with complaint of pulsatile tinnitus. Has been going on for the last year. Affects the right ear. Usually will notice when she is laying down -- does't matter which way she is laying. Usually will last 30-60 minutes -- but recently it lasted a few hours. Refers that it happens a couple of times a week. Vision normal. No n/t. Extremities with normal function. No headaches, but does endorse a head horowitz when she goes from bent over position to standing and will also get the pulsatile tinnitus. + hyperlipidemia that is controlled on medication. Hearing normal. Thinks she has pink eye. Increased drainage overnight, matted shut this morning. Vision normal. Has some URI symptoms. + head congestion. Recently had covid in the house. Using flonase and saline. Cholesterol. PAST MEDICAL HISTORY: PAST MEDICAL HISTORY Diagnosis Date Acute appendicitis 05/05/2015 Asthma Depression Generalized anxiety disorder GERD (gastroesophageal reflux disease) silent Mitral valve prolapse Mixed hyperlipidemia OCD (obsessive compulsive disorder) PAST SURGICAL HISTORY Procedure Laterality Date SNGL X2 COLONOSCOPY SCREENING 02/23/[address] Silva [facility] VARICIES INJ 02/23/[address] Silva LAPAROSCOPIC APPENDECTOMY 05/05/2015 LIGATE FALLOPIAN TUBE Bilateral at time of last c/s ALLERGIES Guaifenesin, Lactose, Clindamycin, Erythromycin, Macadamia Nut Oil, Ofloxacin, Oxcarbazepine, Penicillins, Protonix [Pantoprazole], Sudafed S.A., and Tree Nuts MEDICATIONS Current Outpatient Medications Medication Sig atorvastatin (LIPITOR) 20 mg tablet TAKE 1 TABLET BY MOUTH ONCE DAILY AT BEDTIME FOR CHOLESTEROL cetirizine (ZYRTEC) 10 mg tablet Take 1 tablet by mouth once daily. Cholecalciferol, Vitamin D3, 50 mcg (2,000 unit) cap Take 1 capsule by mouth once daily. hydrOXYzine HCl (ATARAX) 50 mg tablet Take 1 tablet by mouth three times daily as needed. FLUoxetine (PROZAC) 40 mg capsule Take 1 capsule by mouth once daily. EPINEPHrine (EPIPEN) 0.3 mg/0.3 mL auto-injector INJECT CONTENTS OF 1 PEN NEEDED FOR ALLERGIC REACTION budesonide/formoterol fumarate (SYMBICORT INHALATION) Inhale 2 Puffs as instructed once daily. ALBUTEROL SULFATE (PROAIR HFA INHALATION) Inhale as instructed as needed. No current facility-administered medications for this visit. FAMILY HISTORY Problem Relation Age of Onset other (connective tissue disease) Mother other (rheumatoid arthritis) Mother Osteoporosis Mother other (enlarged heart) Mother other (fibrosis) Mother lung other (colorectal cancer) Father age 55 Cerebral palsy Sister other (white matter disease) Maternal Grandmother Dementia Maternal Grandmother Anxiety disorder Maternal Grandmother Heart disease Maternal Grandfather heart transplant Stroke Paternal Grandmother Heart Attack Paternal Grandfather Social History Tobacco Use Smoking status: Former Smokeless tobacco: Never Tobacco comments: quit smoking 1 year ago. occasional cigar. Vaping Use Vaping Use: Former Substances: THC Substance Use Topics Alcohol use: Not Currently Drug use: Yes Frequency: 3.0 times per week Types: Marijuana EXAM: BP 112/84 Pulse 104 Resp 16 LMP 09/28/2022 (Approximate) SpO2 97% PHYSICAL EXAM: General Appearance: Well appearing, alert, in no acute distress, well-hydrated, well nourished.. Skin: Skin color, texture, turgor normal, no suspicious rashes or lesions. Head: Normocephalic, no masses, lesions, tenderness or abnormalities. Eyes: Anicteric sclera. Pupils are equally round and reactive to light. Extraocular movements are intact. . Ears: External ears normal, canals clear. Normal TMs bilaterally. Oropharynx: Lips, mucosa, and tongue normal, teeth and gums normal, oropharynx normal. Neck: Supple, no adenopathy; thyroid symmetric, normal size, no bruits. Lungs: Lungs clear to auscultation. No wheezing, rhonchi, rales.. Heart: RRR without murmur, gallop, or rubs. No ectopy. Extremities: No deformities, edema, skin discoloration, clubbing or cyanosis. Good capillary refill. . Neurologic: Gait normal. ASSESSMENT/PLAN: 1. Pulsatile tinnitus - ICD9: 388.30, ICD10: H93.A9 (primary diagnosis) Unilateral pulsatile tinnitus happening several times weekly for the last year. Pt with hx of hyperlipidemia. Will get CTA of head/neck. Referral to ENT. - CTA HEAD W IVCON - CTA (more content not included)... [facility] 05-03-2023 Miscellaneous Notes Patient has been identified by name and date of : Yes Requested Prescriptions Pending Prescriptions Disp Refills cetirizine (ZYRTEC) 10 mg tablet 90 tablet 1 Sig: Take 1 tablet by mouth once daily. ANNA:02-07-23 No appt made. RX INSTRUCTIONS: Patient aware RX will be sent to pharmacy. No need to notify patient. Amy Parkinson documented in this encounter [facility] 03-28-2023 Note HNO ID: [id number] Author: Belen Damon PA-C Service: ? Author Type: Physician Access Clerk Type: Progress Notes Filed: 03/27/2023 11:00 PM Note Text: 2nd opinion/review endo path NAME: Charmaine Nice [facility] NO.: [id number] DATE OF SERVICE: 03/13/2023 : 1980 REFERRING PHYSICIAN: Meron Ram APRN.AALIYAH Pillai is a patient referred for second opinion regarding pathology from recent endoscopy. Patient notes she had recent EGD done on 02/23/[address] Silva at [facility] for evaluation of reflux symptoms. The patient was found to have LA Grade B reflux esophagitis and a medium sized hiatal hernia. Pathology from the distal esophagus showed focal minimal intestinal metaplasia, negative for dysplasia. The patient states was told via phone call from Gastro that her biopsy showed De La Torre's esophagus, and that she has follow-up appointment with Dr. Silva's office but not for another month. Patient states she is just very anxious, has been reading information online and wants to talk to someone sooner for more information about De La Torre's diagnosis. She was also concerned at mention of hiatal hernia as mother had a large paraesophageal hernia. VITALS: Blood pressure 106/68, pulse 98, temperature 36.6 ?C (97.9 ?F), height 162.6 cm (5' 4 ), weight 72 kg (158 lb 12.8 oz), last menstrual period 09/28/2022, SpO2 96 %. General: patient is alert, cooperative, pleasant and in no acute distress On examination, the abdomen is benign. 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, hiatal hernia PLAN: Reviewed pathology results and provided printed patient education regarding De La Torre's esophagus Reviewed importance of regular endoscopic surveillance with repeat biopsies to monitor for dysplasia, due to increased risk of esophageal cancer with De La Torre's Reviewed recommendations for long-term PPI, in addition to dietary and lifestyle modifications Keep follow-up appointment with Gastroenterology Monitor hiatal hernia/treat reflux symptoms Case was also reviewed with supervising surgeon, who agreed with above Patient verbalized understanding of all above and agreed with the plan Diagnoses: (K22.70) 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 My final recommendations will be communicated back to the requesting physician by way of shared Medical record or letter to requesting physician via [place] mail. Belen Damon PA-C [facility] 03-27-2023 History of Presen t illness Narrative 2nd opinion/review endo path NAME: Charmaine Nice [facility] NO.: [id number] DATE OF SERVICE: 03/13/2023 : 1980 REFERRING PHYSICIAN: Meron Ram APRN.AALIYAH Charmaine is a patient referred for second opinion regarding pathology from recent endoscopy. Patient notes she had recent EGD done on 02/23/[address] Silva at [facility] for evaluation of reflux symptoms. The patient was found to have LA Grade B reflux esophagitis and a medium sized hiatal hernia. Pathology from the distal esophagus showed focal minimal intestinal metaplasia, negative for dysplasia. The patient states was told via phone call from [facility] that her biopsy showed De La Torre's esophagus, and that she has follow-up appointment with Dr. Silva's office but not for another month. Patient states she is just very anxious, has been reading information online and wants to talk to someone sooner for more information about De La Torre's diagnosis. She was also concerned at mention of hiatal hernia as mother had a large paraesophageal hernia. VITALS: Blood pressure 106/68, pulse 98, temperature 36.6 C (97.9 F), height 162.6 cm (5' 4 ), weight 72 kg (158 lb 12.8 oz), last menstrual period 09/28/2022, SpO2 96 %. General: patient is alert, cooperative, pleasant and in no acute distress On examination, the abdomen is benign. 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, hiatal hernia PLAN: Reviewed pathology results and provided printed patient education regarding De La Torre's esophagus Reviewed importance of regular endoscopic surveillance with repeat biopsies to monitor for dysplasia, due to increased risk of esophageal cancer with De La Torre's Reviewed recommendations for long-term PPI, in addition to dietary and lifestyle modifications Keep follow-up appointment with Gastroenterology Monitor hiatal hernia/treat reflux symptoms Case was also reviewed with supervising surgeon, who agreed with above Patient verbalized understanding of all above and agreed with the plan Diagnoses: (K22.70) 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 My final recommendations will be communicated back to the requesting physician by way of shared Medical record or letter to requesting physician via US mail. Belen Damon PA-C documented in this encounter [facility] 03-13-2023 Nurse Note REVIEW OF SYSTEMS: General: The patient denies fatigue, denies weight loss, denies weight gain, denies feeling hot, and denies feelings of cold. Eyes: The patient denies glaucoma, denies eye injury/surgery, wears glasses or contacts. Ear/Nose/Throat: The patient notes allergies, notes hayfever, denies ear infections, and denies bloody noses. Cardiovascular: The patient denies chest pain, denies heart disease, denies high blood pressure,denies cardiac stent, denies prior heart attack, denies irregular heart beat, notes high cholesterol, denies poor circulation, denies heart failure, other cardiac issues, denies claudication, denies cold feet, denies peripheral arterial stent. Respiratory: The patient denies tuberculosis, denies pneumonia, denies frequent cough, denies pulmonary embolism, denies shortness of breath, and denies coughing up blood, notes asthma. Gastrointestinal: The patient denies difficulty swallowing, notes acid reflux, denies ulcers, denies vomiting, denies jaundice/hepatitis, denies gallbladder problems, denies black or tarry stools, denies hemorrhoids, denies bleeding from rectum, denies diverticulitis, denies constipation, denies diarrhea, denies loss of stool control, and notes hernias. Kidney/Bladder: The patient denies kidney stones, denies urine infections, and denies bloody urine. Skin: The patient denies a history of skin cancer, denies bleeding/changing moles, and denies a history of skin rash. Neurologic: The patient denies a history of epilepsy/convulsions, denies headaches, denies head/spinal injuries, and denies stroke/TIA. Psychiatric: The patient notes psychiatric medications, notes depression, and denies voices, denies substance abuse. Endocrine: The patient denies thyroid disorders, denies diabetes, and notes hormonal problems. Hematologic: The patient denies a history of bruising, denies bleeding, and denies anemia, denies blood clots. Infections: The patient denies a history of measles and mumps, denies rheumatic fever, and denies sexually transmitted diseases. Musculoskeletal: The patient denies back pain/injury, denies back problems, notes sciatica, denies knee/foot trouble, denies arthritis, or denies gout. When was patient's last Mammogram screening? 09/2022 Last Colonoscopy: 02/2023 Aislinn Moeller LPN documented in this encounter [facility] 03-01-2023 History of Presen t illness Narrative [facility] [address] [place] [id number] Visit type: Established patient Reason for Visit: Follow-up History of Present Illness: HPI Charmaine Nice is a 42 y.o. female patient with significant PMH of asthma, anxiety, palpitations, MVP, former tobacco smoker, HLP, and seasonal allergies being seen for annual follow up of moderate persistent asthma. She notes breathing is stable, did have mild chest tightness during poor air quality day a few week ago. She now has 5 dogs. She remains abstinent from smoking. PFTs-10/2019 no obstruction/restriction + BD response Allergy testing-2018 elevated IGE, + dogs, cats, dust, ragweed, and [place] grass CT Lung Screening/CT Chest- Eligible for CT lung screening at age 48 Home medications: Symbicort (taking 2 puffs daily), Prn albuterol only used a handful of times in the last year. Continues daily cetirizine #exacerbations within the last year: 0 #exacerbations leading to hospitalization within the last year: 0 Past Medical History: Past Medical History: Diagnosis Date Asthma Depression MVP (mitral valve prolapse) Nicotine dependence, cigarettes, uncomplicated Palpitations Social History: Social History Socioeconomic History Marital status: Number of children: 4 Years of education: 14 Highest education level: Some college, no degree Tobacco Use Smoking status: Former Packs/day: 1.00 Years: 22.00 Pack years: 22.00 Types: Cigarettes Start date: 05/31/1996 Quit date: 07/30/2020 Years since quittin.5 Passive exposure: Past Smokeless tobacco: Never Substance and Sexual Activity Alcohol use: Not Currently Comment: socially Drug use: Not Currently Types: Marijuana Comment: Use Vape Pen-Quit 03/2022 Family History: Family History Problem Relation Name Age of Onset Coronary artery disease Mother connective tissue disease, rheumatoid arthritis, osteoporosis, enlarged heart, fibrosis lung Colon cancer Father age 55 Cerebral palsy Sister Other (oth) Maternal Grandmother white matter disease, dementia, anxiety disorder, heart disease (heart transplant) Stroke Paternal Grandmother Coronary artery disease Paternal Grandfather ROS: Review of Systems Constitutional: Negative for chills, diaphoresis, fatigue, fever and unexpected weight change. Respiratory: Negative for apnea, cough, choking, chest tightness, shortness of breath, wheezing and stridor. Cardiovascular: Negative for chest pain, palpitations and leg swelling. Allergic/Immunologic: Positive for environmental allergies and food allergies. Negative for immunocompromised state. Allergies: Allergies Allergen Reactions Guaifenesin & Derivatives Anaphylaxis Lactose Anaphylaxis Clindamycin/Lincomycin Hives Erythromycin Hives and Other fever Macadamia Nut Oil Other, Hives and Swelling Ofloxacin Other Wheezing, hives. Wheezing, hives. Oxcarbazepine Hives Penicillins Hives Pseudoephedrine Vital Signs: BP 110/82 Pulse 100 Resp 20 Ht 5' 4.02 (1.626 m) Wt 161 lb 3.2 oz (73.1 kg) SpO2 98% Comment: RA BMI 27.66 kg/m Physical Exam: Physical Exam Constitutional: Appearance: Normal appearance. HENT: Head: Normocephalic and atraumatic. Right Ear: External ear normal. Left Ear: External ear normal. Nose: Nose normal. Mouth/Throat: Pharynx: Oropharynx is clear. No oropharyngeal exudate. Eyes: General: No scleral icterus. Conjunctiva/sclera: Conjunctivae normal. Cardiovascular: Rate and Rhythm: Normal rate and regular rhythm. Heart sounds: No murmur heard. Pulmonary: Effort: Pulmonary effort is normal. Breath sounds: Normal breath sounds. Skin: General: Skin is warm and dry. Comments: Multiple tattoos Neurological: General: No focal deficit present. Mental Status: She is alert and oriented to person, place, and time. Psychiatric: Mood and Affect: Mood normal. Behavior: Behavior normal. Thought Content: Thought content normal. Judgment: Judgment normal. Assessment and Plan: Diagnosis Plan 1. Moderate persistent asthma without complication -Well controlled on current medical therapies. -Continue Symbicort (using 2 puffs in the evening) and PRN - RX provided: budesonide-formoterol (Symbicort) 160-4.5 MCG/ACT inhaler 2. Seasonal allergies - Continue daily cetirizine - Allergen avoidence recommended - Epi pee refilled Follow-up: Follow up in about 1 year (around 03/01/2024), or if symptoms worsen or fail to improve, for Next scheduled follow-up. documented in this encounter [facility] 03-01-2023 Instructions Lavern Cali Rai, MA - 03/01/2023 1:40 PM EDT YOUR APPOINTMENT TODAY WAS WITH THE [facility], COPD CLINIC, PULMONARY AND SLEEP MEDICINE OFFICE. PLEASE CALL OUR OFFICE AT [phone] IF YOU HAVE NOT RECEIVED YOUR TEST RESULTS 7 DAYS AFTER TESTING IS COMPLETED. PLEASE REMEMBER TO REQUEST REFILLS AT YOUR OFFICE VISITS. PHONE/FAX REQUESTS REQUIRE 48-72 HOURS FOR RESPONSE. A FRIENDLY REMINDER COPAYS ARE DUE AT TIME OF SERVICE. THANK YOU. Our Patients Are Important! We want to improve and you can help. After your visit we want you to feel: Listened to, Respected and have your health care explained. You may receive a survey asking you about your visit. Please complete the survey. We will use your feedback to make improvements. COVID-19 VACCINATION INFORMATION: PH. [phone] [email or web address] [facility] Central Scheduling [phone] [facility] Sleep Scheduling [phone] documented in this encounter [facility] 02-07-2023 Note HNO ID: [id number] Author: Meron Ram APRN.MACHINE CAGE MAKER Service: ? Author Type: Nurse Practitioner Type: Progress Notes Filed: 02/07/2023 8:23 PM Note Text: This is a 42 year old female who presents today with: Patient presents with: Acute Visit: Recheck skin lesion's HISTORY OF PRESENT ILLNESS: Charmaine Nice is a 42 year old female. Patient presents with: Acute Visit: Recheck skin lesion's Pt presents today d/t skin lesion. She previously was evaluated for a skin lesion by her right breast. Appeared as a furuncle. Refers that still a little tender, but unable to feel any lumps. Continues with some purplish discoloration. She also noticed a spot on her left neck. Refers started as a scab, which fell off and left with a small dark spot. PAST MEDICAL HISTORY: PAST MEDICAL HISTORY Diagnosis Date Acute appendicitis 05/05/2015 Asthma Depression Generalized anxiety disorder GERD (gastroesophageal reflux disease) silent Mitral valve prolapse Mixed hyperlipidemia OCD (obsessive compulsive disorder) PAST SURGICAL HISTORY Procedure Laterality Date SNGL X2 LAPAROSCOPIC APPENDECTOMY 05/05/2015 LIGATE FALLOPIAN TUBE Bilateral at time of last c/s ALLERGIES Guaifenesin, Lactose, Clindamycin, Erythromycin, Macadamia Nut Oil, Ofloxacin, Oxcarbazepine, Penicillins, Sudafed S.A., and Tree Nuts MEDICATIONS Current Outpatient Medications Medication Sig cetirizine (ZYRTEC) 10 mg tablet Take 1 tablet by mouth once daily. atorvastatin (LIPITOR) 20 mg tablet Take 1 tablet by mouth daily at bedtime. For cholesterol. hydrOXYzine HCl (ATARAX) 50 mg tablet Take 1 tablet by mouth three times daily as needed. FLUoxetine (PROZAC) 40 mg capsule Take 1 capsule by mouth once daily. Cholecalciferol, Vitamin D3, 50 mcg (2,000 unit) cap Take 1 capsule by mouth once daily. EPINEPHrine (EPIPEN) 0.3 mg/0.3 mL auto-injector INJECT CONTENTS OF 1 PEN NEEDED FOR ALLERGIC REACTION budesonide/formoterol fumarate (SYMBICORT INHALATION) Inhale 2 Puffs as instructed once daily. ALBUTEROL SULFATE (PROAIR HFA INHALATION) Inhale as instructed as needed. No current facility-administered medications for this visit. FAMILY HISTORY Problem Relation Age of Onset other (connective tissue disease) Mother other (rheumatoid arthritis) Mother Osteoporosis Mother other (enlarged heart) Mother other (fibrosis) Mother lung other (colorectal cancer) Father age 55 Cerebral palsy Sister other (white matter disease) Maternal Grandmother Dementia Maternal Grandmother Anxiety disorder Maternal Grandmother Heart disease Maternal Grandfather heart transplant Stroke Paternal Grandmother Heart Attack Paternal Grandfather Social History Tobacco Use Smoking status: Former Smokeless tobacco: Never Tobacco comments: quit smoking 1 year ago. occasional cigar. Vaping Use Vaping Use: Former Substances: THC Substance Use Topics Alcohol use: Not Currently Drug use: Yes Frequency: 3.0 times per week Types: Marijuana EXAM: BP 116/80 Pulse 94 Resp 16 LMP 09/28/2022 (Approximate) SpO2 97% PHYSICAL EXAM: General Appearance: Well appearing, alert, in no acute distress, well-hydrated, well nourished.. Skin: Skin color, texture, turgor normal. Pinpoint graff/brown area left neck. Appx 0.5 cm purplish area inner aspect under right breast. Unable to palpate any lump/cystic lesions. Head: Normocephalic, no masses, lesions, tenderness or abnormalities. Eyes: Anicteric sclera. Extraocular movements are intact. . Neurologic: Gait normal. ASSESSMENT/PLAN: 1. Skin lesions - ICD9: 709.9, ICD10: L98.9 Suspect that area near breast is just some remnant discoloration from furuncle. Suspect that area on the left neck was a small early skin tag. Reassured. Continue to monitor. Encouraged to continue to monitor. If she notices any worsening symptoms, to notify provider. Discussed treatment plan and patient voices understanding. Patient's questions answered appropriately. Medications and potential side effects were discussed and patient voices understanding. Return to the office as scheduled or as needed for worsening/no improvement. Meron Ram APRN.AALIYAH I spent a total of 20 minutes on the date of the service which included preparing to see the patient, [id number] patient care, completing clinical documentation, performing a medically appropriate examination, and counseling and educating the patient/family/caregiver. [facility] 02-07-2023 Instructions Meron Ram APRN.CNP - 02/07/2023 1:27 PM EDT Keep an eye on the areas. Let me know if anything changes. documented in this encounter [facility] 02-07-2023 History of Presen t illness Narrative This is a 42 year old female who presents today with: Patient presents with: Acute Visit: Recheck skin lesion's HISTORY OF PRESENT ILLNESS: Charmaine Nice is a 42 year old female. Patient presents with: Acute Visit: Recheck skin lesion's Pt presents today d/t skin lesion. She previously was evaluated for a skin lesion by her right breast. Appeared as a furuncle. Refers that still a little tender, but unable to feel any lumps. Continues with some purplish discoloration. She also noticed a spot on her left neck. Refers started as a scab, which fell off and left with a small dark spot. PAST MEDICAL HISTORY: PAST MEDICAL HISTORY Diagnosis Date Acute appendicitis 05/05/2015 Asthma Depression Generalized anxiety disorder GERD (gastroesophageal reflux disease) silent Mitral valve prolapse Mixed hyperlipidemia OCD (obsessive compulsive disorder) PAST SURGICAL HISTORY Procedure Laterality Date SNGL X2 LAPAROSCOPIC APPENDECTOMY 05/05/2015 LIGATE FALLOPIAN TUBE Bilateral at time of last c/s ALLERGIES Guaifenesin, Lactose, Clindamycin, Erythromycin, Macadamia Nut Oil, Ofloxacin, Oxcarbazepine, Penicillins, Sudafed S.A., and Tree Nuts MEDICATIONS Current Outpatient Medications Medication Sig cetirizine (ZYRTEC) 10 mg tablet Take 1 tablet by mouth once daily. atorvastatin (LIPITOR) 20 mg tablet Take 1 tablet by mouth daily at bedtime. For cholesterol. hydrOXYzine HCl (ATARAX) 50 mg tablet Take 1 tablet by mouth three times daily as needed. FLUoxetine (PROZAC) 40 mg capsule Take 1 capsule by mouth once daily. Cholecalciferol, Vitamin D3, 50 mcg (2,000 unit) cap Take 1 capsule by mouth once daily. EPINEPHrine (EPIPEN) 0.3 mg/0.3 mL auto-injector INJECT CONTENTS OF 1 PEN NEEDED FOR ALLERGIC REACTION budesonide/formoterol fumarate (SYMBICORT INHALATION) Inhale 2 Puffs as instructed once daily. ALBUTEROL SULFATE (PROAIR HFA INHALATION) Inhale as instructed as needed. No current facility-administered medications for this visit. FAMILY HISTORY Problem Relation Age of Onset other (connective tissue disease) Mother other (rheumatoid arthritis) Mother Osteoporosis Mother other (enlarged heart) Mother other (fibrosis) Mother lung other (colorectal cancer) Father age 55 Cerebral palsy Sister other (white matter disease) Maternal Grandmother Dementia Maternal Grandmother Anxiety disorder Maternal Grandmother Heart disease Maternal Grandfather heart transplant Stroke Paternal Grandmother Heart Attack Paternal Grandfather Social History Tobacco Use Smoking status: Former Smokeless tobacco: Never Tobacco comments: quit smoking 1 year ago. occasional cigar. Vaping Use Vaping Use: Former Substances: THC Substance Use Topics Alcohol use: Not Currently Drug use: Yes Frequency: 3.0 times per week Types: Marijuana EXAM: BP 116/80 Pulse 94 Resp 16 LMP 09/28/2022 (Approximate) SpO2 97% PHYSICAL EXAM: General Appearance: Well appearing, alert, in no acute distress, well-hydrated, well nourished.. Skin: Skin color, texture, turgor normal. Pinpoint graff/brown area left neck. Appx 0.5 cm purplish area inner aspect under right breast. Unable to palpate any lump/cystic lesions. Head: Normocephalic, no masses, lesions, tenderness or abnormalities. Eyes: Anicteric sclera. Extraocular movements are intact. . Neurologic: Gait normal. ASSESSMENT/PLAN: 1. Skin lesions - ICD9: 709.9, ICD10: L98.9 Suspect that area near breast is just some remnant discoloration from furuncle. Suspect that area on the left neck was a small early skin tag. Reassured. Continue to monitor. Encouraged to continue to monitor. If she notices any worsening symptoms, to notify provider. Discussed treatment plan and patient voices understanding. Patient's questions answered appropriately. Medications and potential side effects were discussed and patient voices understanding. Return to the office as scheduled or as needed for worsening/no improvement. Meron Ram APRN.CNP I spent a total of 20 minutes on the date of the service which included preparing to see the patient, [id number] patient care, completing clinical documentation, performing a medically appropriate examination, and counseling and educating the patient/family/caregiver. documented in this encounter [facility] 11-28-2022 Note HNO ID: [id number] Author: Meron Ram APRN.CNP Service: ? Author Type: Nurse Practitioner Type: Progress Notes Filed: 11/28/2022 6:45 PM Note Text: This is a 42 year old female who presents today with: Patient presents with: Acute Visit: Lump on r breast that she noticed about 1 month ago; used otc atb cream on it and the lump started to disappear HISTORY OF PRESENT ILLNESS: Charmaine Nice is a 42 year old female. Patient presents with: Acute Visit: Lump on r breast that she noticed about 1 month ago; used otc atb cream on it and the lump started to disappear Pt presents today with complaint of breast lump. Started 3-4 weeks ago. Started out the size of a small grape and red. At one point it looked like it had a head or was a boil. Started antibiotic ointment. She also was cleansing with alcohol. Redness improved and it shrunk and became about the size of a blueberry. Refers now that now it has a black spot on it. No drainage. Can still be sore to touch. She did have a normal mammogram in September of this year. PAST MEDICAL HISTORY: PAST MEDICAL HISTORY Diagnosis Date Acute appendicitis 05/05/2015 Asthma Depression Generalized anxiety disorder GERD (gastroesophageal reflux disease) silent Mitral valve prolapse Mixed hyperlipidemia OCD (obsessive compulsive disorder) PAST SURGICAL HISTORY Procedure Laterality Date SNGL X2 LAPAROSCOPIC APPENDECTOMY 05/05/2015 LIGATE FALLOPIAN TUBE Bilateral at time of last c/s ALLERGIES Guaifenesin, Lactose, Clindamycin, Erythromycin, Macadamia Nut Oil, Ofloxacin, Oxcarbazepine, Penicillins, Sudafed S.A., and Tree Nuts MEDICATIONS Current Outpatient Medications Medication Sig triamcinolone acetonide (KENALOG) 0.1 % cream Apply 1 application to affected area twice daily for 7 days. Apply to affected area. Location: right wrist cetirizine (ZYRTEC) 10 mg tablet Take 1 tablet by mouth once daily. atorvastatin (LIPITOR) 20 mg tablet Take 1 tablet by mouth daily at bedtime. For cholesterol. hydrOXYzine HCl (ATARAX) 50 mg tablet Take 1 tablet by mouth three times daily as needed. FLUoxetine (PROZAC) 40 mg capsule Take 1 capsule by mouth once daily. Cholecalciferol, Vitamin D3, 50 mcg (2,000 unit) cap Take 1 capsule by mouth once daily. EPINEPHrine (EPIPEN) 0.3 mg/0.3 mL auto-injector INJECT CONTENTS OF 1 PEN NEEDED FOR ALLERGIC REACTION budesonide/formoterol fumarate (SYMBICORT INHALATION) Inhale 2 Puffs as instructed once daily. ALBUTEROL SULFATE (PROAIR HFA INHALATION) Inhale as instructed as needed. No current facility-administered medications for this visit. FAMILY HISTORY Problem Relation Age of Onset other (connective tissue disease) Mother other (rheumatoid arthritis) Mother Osteoporosis Mother other (enlarged heart) Mother other (fibrosis) Mother lung other (colorectal cancer) Father age 55 Cerebral palsy Sister other (white matter disease) Maternal Grandmother Dementia Maternal Grandmother Anxiety disorder Maternal Grandmother Heart disease Maternal Grandfather heart transplant Stroke Paternal Grandmother Heart Attack Paternal Grandfather Social History Tobacco Use Smoking status: Former Smokeless tobacco: Never Tobacco comments: quit smoking 1 year ago. occasional cigar. Vaping Use Vaping Use: Former Substances: THC Substance Use Topics Alcohol use: Not Currently Drug use: Yes Frequency: 3.0 times per week Types: Marijuana EXAM: BP 118/78 Pulse 102 Resp 18 LMP 09/28/2022 (Approximate) SpO2 96% PHYSICAL EXAM: General Appearance: Well appearing, alert, in no acute distress, well-hydrated, well nourished.. Skin: Skin color, texture, turgor normal, no suspicious rashes. Medial, lower right breast with non-angry, non-fluctuant cyst-like lesion appx 7mm. Head: Normocephalic, no masses, lesions, tenderness or abnormalities. Eyes: Anicteric sclera. Extraocular movements are intact. Neurologic: Gait normal. ASSESSMENT/PLAN: 1. Furuncle - ICD9: 680.9, ICD10: L02.92 Non-angry. Discussed warm compresses and continue antibiotic ointment. If area does not continue to improve or becomes angry, please let provider know. Discussed treatment plan and patient voices understanding. Patient's questions answered appropriately. Medications and potential side effects were discussed and patient voices understanding. Return to the office as scheduled or as needed for worsening/no improvement. Meron Ram APRN.CNP [facility] 11-28-2022 Instructions Meron Ram APRN.CNP - 11/28/2022 12:01 PM EDT Continue the antibiotic ointment. Warm compresses. If the area becomes angry, let me know. documented in this encounter [facility] 11-28-2022 History of Presen t illness Narrative This is a 42 year old female who presents today with: Patient presents with: Acute Visit: Lump on r breast that she noticed about 1 month ago; used otc atb cream on it and the lump started to disappear HISTORY OF PRESENT ILLNESS: Charmaine Nice is a 42 year old female. Patient presents with: Acute Visit: Lump on r breast that she noticed about 1 month ago; used otc atb cream on it and the lump started to disappear Pt presents today with complaint of breast lump. Started 3-4 weeks ago. Started out the size of a small grape and red. At one point it looked like it had a head or was a boil. Started antibiotic ointment. She also was cleansing with alcohol. Redness improved and it shrunk and became about the size of a blueberry. Refers now that now it has a black spot on it. No drainage. Can still be sore to touch. She did have a normal mammogram in September of this year. PAST MEDICAL HISTORY: PAST MEDICAL HISTORY Diagnosis Date Acute appendicitis 05/05/2015 Asthma Depression Generalized anxiety disorder GERD (gastroesophageal reflux disease) silent Mitral valve prolapse Mixed hyperlipidemia OCD (obsessive compulsive disorder) PAST SURGICAL HISTORY Procedure Laterality Date SNGL X2 LAPAROSCOPIC APPENDECTOMY 05/05/2015 LIGATE FALLOPIAN TUBE Bilateral at time of last c/s ALLERGIES Guaifenesin, Lactose, Clindamycin, Erythromycin, Macadamia Nut Oil, Ofloxacin, Oxcarbazepine, Penicillins, Sudafed S.A., and Tree Nuts MEDICATIONS Current Outpatient Medications Medication Sig triamcinolone acetonide (KENALOG) 0.1 % cream Apply 1 application to affected area twice daily for 7 days. Apply to affected area. Location: right wrist cetirizine (ZYRTEC) 10 mg tablet Take 1 tablet by mouth once daily. atorvastatin (LIPITOR) 20 mg tablet Take 1 tablet by mouth daily at bedtime. For cholesterol. hydrOXYzine HCl (ATARAX) 50 mg tablet Take 1 tablet by mouth three times daily as needed. FLUoxetine (PROZAC) 40 mg capsule Take 1 capsule by mouth once daily. Cholecalciferol, Vitamin D3, 50 mcg (2,000 unit) cap Take 1 capsule by mouth once daily. EPINEPHrine (EPIPEN) 0.3 mg/0.3 mL auto-injector INJECT CONTENTS OF 1 PEN NEEDED FOR ALLERGIC REACTION budesonide/formoterol fumarate (SYMBICORT INHALATION) Inhale 2 Puffs as instructed once daily. ALBUTEROL SULFATE (PROAIR HFA INHALATION) Inhale as instructed as needed. No current facility-administered medications for this visit. FAMILY HISTORY Problem Relation Age of Onset other (connective tissue disease) Mother other (rheumatoid arthritis) Mother Osteoporosis Mother other (enlarged heart) Mother other (fibrosis) Mother lung other (colorectal cancer) Father age 55 Cerebral palsy Sister other (white matter disease) Maternal Grandmother Dementia Maternal Grandmother Anxiety disorder Maternal Grandmother Heart disease Maternal Grandfather heart transplant Stroke Paternal Grandmother Heart Attack Paternal Grandfather Social History Tobacco Use Smoking status: Former Smokeless tobacco: Never Tobacco comments: quit smoking 1 year ago. occasional cigar. Vaping Use Vaping Use: Former Substances: THC Substance Use Topics Alcohol use: Not Currently Drug use: Yes Frequency: 3.0 times per week Types: Marijuana EXAM: BP 118/78 Pulse 102 Resp 18 LMP 09/28/2022 (Approximate) SpO2 96% PHYSICAL EXAM: General Appearance: Well appearing, alert, in no acute distress, well-hydrated, well nourished.. Skin: Skin color, texture, turgor normal, no suspicious rashes. Medial, lower right breast with non-angry, non-fluctuant cyst-like lesion appx 7mm. Head: Normocephalic, no masses, lesions, tenderness or abnormalities. Eyes: Anicteric sclera. Extraocular movements are intact. Neurologic: Gait normal. ASSESSMENT/PLAN: 1. Furuncle - ICD9: 680.9, ICD10: L02.92 Non-angry. Discussed warm compresses and continue antibiotic ointment. If area does not continue to improve or becomes angry, please let provider know. Discussed treatment plan and patient voices understanding. Patient's questions answered appropriately. Medications and potential side effects were discussed and patient voices understanding. Return to the office as scheduled or as needed for worsening/no improvement. Meron Ram APRN.AALIYAH documented in this encounter [facility] 11-23-2022 Note HNO ID: [id number] Author: Thompson Gerber MD Service: ? Author Type: Physician Type: Progress Notes Filed: 11/23/2022 3:35 PM Note Text: Patient presents with: Rash: Rash on right hand x 1 week that itches and narvaez HPI: Rash: Location: right wrist/hand Duration: 1 weeks Pruritis: Yes Pain: narvaez Change: spreading Bleeding/ulceration/blister/pust ule: red bumps, sometimes puffy Contacts with rash: No Exposure: New wooden Buddha bead bracelet last week. No new soaps, detergents, fabric softeners, lotions. Outdoor exposure: No. Change in medications: No. Recent illness: had COVID a few weeks ago. Treatment: moisturizers PAST MEDICAL HISTORY Diagnosis Date Acute appendicitis 05/05/2015 Asthma Depression Generalized anxiety disorder GERD (gastroesophageal reflux disease) silent Mitral valve prolapse Mixed hyperlipidemia OCD (obsessive compulsive disorder) MEDICATIONS: cetirizine (ZYRTEC) 10 mg tabletTake 1 tablet by mouth once daily.Disp: 90 tabletRfl: 1 atorvastatin (LIPITOR) 20 mg tabletTake 1 tablet by mouth daily at bedtime. For cholesterol.Disp: 30 tabletRfl: 3 hydrOXYzine HCl (ATARAX) 50 mg tabletTake 1 tablet by mouth three times daily as needed.Disp: 90 tabletRfl: 0 FLUoxetine (PROZAC) 40 mg capsuleTake 1 capsule by mouth once daily.Disp: 30 capsuleRfl: 5 Cholecalciferol, Vitamin D3, 50 mcg (2,000 unit) capTake 1 capsule by mouth once daily.Disp: 30 capsuleRfl: 11 EPINEPHrine (EPIPEN) 0.3 mg/0.3 mL auto-injectorINJECT CONTENTS OF 1 PEN NEEDED FOR ALLERGIC REACTIONDisp: Rfl: budesonide/formoterol fumarate (SYMBICORT INHALATION)Inhale 2 Puffs as instructed once daily.Disp: Rfl: ALBUTEROL SULFATE (PROAIR HFA INHALATION)Inhale as instructed as needed.Disp: Rfl: ALLERGIES: ALLERGIES Allergen Reactions Guaifenesin Anaphylaxis Lactose Anaphylaxis Clindamycin Hives Erythromycin Hives, Other: See Comments fever Macadamia Nut Oil Other: See Comments Ofloxacin Other: See Comments Wheezing, hives. Oxcarbazepine Hives Penicillins Hives Sudafed S.A. GI Upset, Vomiting Tree Nuts GI Upset, Hives, Swelling VITALS: BP 110/80 Pulse 85 Temp 36.4 ?C (97.5 ?F) (Tympanic) Resp 18 Wt 72.8 kg (160 lb 9.6 oz) LMP 09/28/2022 (Approximate) SpO2 98% BMI 27.57 kg/m? PHYSICAL EXAM: GEN: pleasant, no acute distress, alert SKIN: pinpoint erythematous papular rash spread over the dorsal right wrist. ASSESSMENT/PLAN: 1. Contact dermatitis due to other agent, unspecified contact dermatitis type - ICD9: 692.89, ICD10: L25.8 Probable contact dermatitis from new bracelet. She has already discontinued wearing it. - TRIAMCINOLONE ACETONIDE 0.1 % TOPICAL CREAM Thompson Gerber MD [facility] 11-23-2022 History of Presen t illness Narrative Patient presents with: Rash: Rash on right hand x 1 week that itches and narvaez HPI: Rash: Location: right wrist/hand Duration: 1 weeks Pruritis: Yes Pain: narvaez Change: spreading Bleeding/ulceration/blister/pust ule: red bumps, sometimes puffy Contacts with rash: No Exposure: New wooden Buddha bead bracelet last week. No new soaps, detergents, fabric softeners, lotions. Outdoor exposure: No. Change in medications: No. Recent illness: had COVID a few weeks ago. Treatment: moisturizers PAST MEDICAL HISTORY Diagnosis Date Acute appendicitis 05/05/2015 Asthma Depression Generalized anxiety disorder GERD (gastroesophageal reflux disease) silent Mitral valve prolapse Mixed hyperlipidemia OCD (obsessive compulsive disorder) MEDICATIONS: cetirizine (ZYRTEC) 10 mg tablet^Take 1 tablet by mouth once daily.^Disp: 90 tablet^Rfl: 1 atorvastatin (LIPITOR) 20 mg tablet^Take 1 tablet by mouth daily at bedtime. For cholesterol.^Disp: 30 tablet^Rfl: 3 hydrOXYzine HCl (ATARAX) 50 mg tablet^Take 1 tablet by mouth three times daily as needed.^Disp: 90 tablet^Rfl: 0 FLUoxetine (PROZAC) 40 mg capsule^Take 1 capsule by mouth once daily.^Disp: 30 capsule^Rfl: 5 Cholecalciferol, Vitamin D3, 50 mcg (2,000 unit) cap^Take 1 capsule by mouth once daily.^Disp: 30 capsule^Rfl: 11 EPINEPHrine (EPIPEN) 0.3 mg/0.3 mL auto-injector^INJECT CONTENTS OF 1 PEN NEEDED FOR ALLERGIC REACTION^Disp: ^Rfl: budesonide/formoterol fumarate (SYMBICORT INHALATION)^Inhale 2 Puffs as instructed once daily.^Disp: ^Rfl: ALBUTEROL SULFATE (PROAIR HFA INHALATION)^Inhale as instructed as needed.^Disp: ^Rfl: ALLERGIES: ALLERGIES Allergen Reactions Guaifenesin Anaphylaxis Lactose Anaphylaxis Clindamycin Hives Erythromycin Hives, Other: See Comments fever Macadamia Nut Oil Other: See Comments Ofloxacin Other: See Comments Wheezing, hives. Oxcarbazepine Hives Penicillins Hives Sudafed S.A. GI Upset, Vomiting Tree Nuts GI Upset, Hives, Swelling VITALS: BP 110/80 Pulse 85 Temp 36.4 C (97.5 F) (Tympanic) Resp 18 Wt 72.8 kg (160 lb 9.6 oz) LMP 09/28/2022 (Approximate) SpO2 98% BMI 27.57 kg/m PHYSICAL EXAM: GEN: pleasant, no acute distress, alert SKIN: pinpoint erythematous papular rash spread over the dorsal right wrist. ASSESSMENT/PLAN: 1. Contact dermatitis due to other agent, unspecified contact dermatitis type - ICD9: 692.89, ICD10: L25.8 Probable contact dermatitis from new bracelet. She has already discontinued wearing it. - TRIAMCINOLONE ACETONIDE 0.1 % TOPICAL CREAM Thompson Gerber MD documented in this encounter [facility] 11-01-2022 Miscellaneous Notes Patient has been identified by name and date of : Yes Patient phones for refill(s): Requested Prescriptions Pending Prescriptions Disp Refills cetirizine (ZYRTEC) 10 mg tablet 90 tablet 1 Sig: Take 1 tablet by mouth once daily. atorvastatin (LIPITOR) 20 mg tablet 30 tablet 3 Sig: Take 1 tablet by mouth daily at bedtime. For cholesterol. Date of last office visit in primary care: 08/29/2022 Please advise. Thank you. Soha Morgan LPN documented in this encounter [facility] 10-24-2022 Note HNO ID: [id number] Author: Gerardo Bryson MD Service: ? Author Type: Physician Type: Progress Notes Filed: 10/24/2022 5:13 PM Note Text: Charmaine Nice is a 42 year old female who presents for problem visit for adenomyosis. C/o pain over past few years that has been increasing and large blood clots several cm in diameter. Wears pads and changes pads 4-5 times a day, will bleed through. Pain before and during and a little after menses. Sometimes some bleeding between cycles. Was on OCPs in the remote past but does not want to be on hormones. Had previous tubal, completed child bearing. Desires definitive therapy in form of hysterectomy. Scared about mirena OB History T0 L4 SAB0 IAB0 Ectopic0 Multiple0 Live Births0 Panel Saw Operator History LMP: 09/28/2022 (Approximate), Having periods Age at Menarche: Age at First : Age at Menopause: Panel Saw Operator History Comments: Sexual Activity: No sexual activity data on record; Female Contraception: No contraception data on record PAST MEDICAL HISTORY Diagnosis Date Acute appendicitis 05/05/2015 Asthma Depression Generalized anxiety disorder GERD (gastroesophageal reflux disease) silent Mitral valve prolapse Mixed hyperlipidemia OCD (obsessive compulsive disorder) PAST SURGICAL HISTORY Procedure Laterality Date SNGL X2 LAPAROSCOPIC APPENDECTOMY 05/05/2015 FAMILY HISTORY Problem Relation Age of Onset other (connective tissue disease) Mother other (rheumatoid arthritis) Mother Osteoporosis Mother other (enlarged heart) Mother other (fibrosis) Mother lung other (colorectal cancer) Father age 55 Cerebral palsy Sister other (white matter disease) Maternal Grandmother Dementia Maternal Grandmother Anxiety disorder Maternal Grandmother Heart disease Maternal Grandfather heart transplant Stroke Paternal Grandmother Heart Attack Paternal Grandfather Social History Tobacco Use Smoking status: Former Smokeless tobacco: Never Tobacco comments: quit smoking 1 year ago. occasional cigar. Vaping Use Vaping Use: Former Substances: THC Substance Use Topics Alcohol use: Not Currently Drug use: Yes Frequency: 3.0 times per week Types: Marijuana Current Outpatient Medications Medication Sig hydrOXYzine HCl (ATARAX) 50 mg tablet Take 1 tablet by mouth three times daily as needed. FLUoxetine (PROZAC) 40 mg capsule Take 1 capsule by mouth once daily. atorvastatin (LIPITOR) 20 mg tablet Take 1 tablet by mouth daily at bedtime. For cholesterol. Cholecalciferol, Vitamin D3, 50 mcg (2,000 unit) cap Take 1 capsule by mouth once daily. cetirizine (ZYRTEC) 10 mg tablet Take 1 tablet by mouth once daily. EPINEPHrine (EPIPEN) 0.3 mg/0.3 mL auto-injector INJECT CONTENTS OF 1 PEN NEEDED FOR ALLERGIC REACTION budesonide/formoterol fumarate (SYMBICORT INHALATION) Inhale 2 Puffs as instructed once daily. ALBUTEROL SULFATE (PROAIR HFA INHALATION) Inhale as instructed as needed. Current Facility-Administered Medications Medication Dose Route Frequency perflutren lipid microspheres 1.3 mL in NaCl (PF) 0.9% 10 mL injection (DEFINITY) INTRAVENOUS DIRECTED PRN sodium chloride 0.9 % (flush) 10 mL (BD POSIFLUSH) 10 mL INTRAVENOUS DIRECTED PRN Allergies As of Date: 10/24/2022 Allergen Noted Reaction GUAIFENESIN 07/23/2019 Anaphylaxis LACTOSE 01/24/2020 Anaphylaxis CLINDAMYCIN 05/13/2015 Hives ERYTHROMYCIN 05/13/2015 Hives and Other: See Comments MACADAMIA NUT OIL 05/27/2020 Other: See Comments OFLOXACIN 06/07/2017 Other: See Comments OXCARBAZEPINE 06/19/2021 Hives PENICILLINS 05/13/2015 Hives SUDAFED S.A. 11/25/2006 GI Upset and Vomiting TREE NUTS 03/28/2022 GI Upset, Hives, and Swelling Fully Assessed 10/24/2022 REVIEW OF SYSTEMS Abdomen: No bloating, early satiety, indigestion, or increased flatulence. No abdominal pain, nausea, vomiting, diarrhea, or constipation. Bladder: occas NASH. Breast: No breast lumps, nipple d/c, overlying skin changes, redness or skin retraction. Allergies and current medication updated:Yes EXAM: BP 106/66 Wt 163 lb (73.9kg) LMP 09/28/2022 GENERAL: pleasant, female in no apparent distress H ASSESSMENT AND PLAN: adenomyosis, menorrhagia. R/B/A to various options reviewed. Encouraged Mirena> Does not want hormones. Not a good candidate for ablation due to pain and adenomyosis, there would be a high chance of failure. Lysteda is a short term option but realistically not a good terminal worker option until menopause. D/w her short and alf risks of surgery. Needs pap and EMB before any surgery or Mirena. She will consider and rediscuss at f/u appt. reviewed pelvic US, CBC/hormone levels, TSH Medical Decision Making: Problems: Moderate: 1+ chronic illnesses with change Data: Unique test result(s) reviewed: 3+ Unique test(s) ordered: 1 Risk: Moderate: Moderate risk from testing/treatment Medical D (more content not included)... [facility] 10-24-2022 History of Presen t illness Narrative Charmaine Nice is a 42 year old female who presents for problem visit for adenomyosis. C/o pain over past few years that has been increasing and large blood clots several cm in diameter. Wears pads and changes pads 4-5 times a day, will bleed through. Pain before and during and a little after menses. Sometimes some bleeding between cycles. Was on OCPs in the remote past but does not want to be on hormones. Had previous tubal, completed child bearing. Desires definitive therapy in form of hysterectomy. Scared about mirena OB History T0 L4 SAB0 IAB0 Ectopic0 Multiple0 Live Births0 Panel Saw Operator History LMP: 09/28/2022 (Approximate), Having periods Age at Menarche: Age at First : Age at Menopause: Panel Saw Operator History Comments: Sexual Activity: No sexual activity data on record; Female Contraception: No contraception data on record PAST MEDICAL HISTORY Diagnosis Date Acute appendicitis 05/05/2015 Asthma Depression Generalized anxiety disorder GERD (gastroesophageal reflux disease) silent Mitral valve prolapse Mixed hyperlipidemia OCD (obsessive compulsive disorder) PAST SURGICAL HISTORY Procedure Laterality Date SNGL X2 LAPAROSCOPIC APPENDECTOMY 05/05/2015 FAMILY HISTORY Problem Relation Age of Onset other (connective tissue disease) Mother other (rheumatoid arthritis) Mother Osteoporosis Mother other (enlarged heart) Mother other (fibrosis) Mother lung other (colorectal cancer) Father age 55 Cerebral palsy Sister other (white matter disease) Maternal Grandmother Dementia Maternal Grandmother Anxiety disorder Maternal Grandmother Heart disease Maternal Grandfather heart transplant Stroke Paternal Grandmother Heart Attack Paternal Grandfather Social History Tobacco Use Smoking status: Former Smokeless tobacco: Never Tobacco comments: quit smoking 1 year ago. occasional cigar. Vaping Use Vaping Use: Former Substances: THC Substance Use Topics Alcohol use: Not Currently Drug use: Yes Frequency: 3.0 times per week Types: Marijuana Current Outpatient Medications Medication Sig hydrOXYzine HCl (ATARAX) 50 mg tablet Take 1 tablet by mouth three times daily as needed. FLUoxetine (PROZAC) 40 mg capsule Take 1 capsule by mouth once daily. atorvastatin (LIPITOR) 20 mg tablet Take 1 tablet by mouth daily at bedtime. For cholesterol. Cholecalciferol, Vitamin D3, 50 mcg (2,000 unit) cap Take 1 capsule by mouth once daily. cetirizine (ZYRTEC) 10 mg tablet Take 1 tablet by mouth once daily. EPINEPHrine (EPIPEN) 0.3 mg/0.3 mL auto-injector INJECT CONTENTS OF 1 PEN NEEDED FOR ALLERGIC REACTION budesonide/formoterol fumarate (SYMBICORT INHALATION) Inhale 2 Puffs as instructed once daily. ALBUTEROL SULFATE (PROAIR HFA INHALATION) Inhale as instructed as needed. Current Facility-Administered Medications Medication Dose Route Frequency perflutren lipid microspheres 1.3 mL in NaCl (PF) 0.9% 10 mL injection (DEFINITY) INTRAVENOUS DIRECTED PRN sodium chloride 0.9 % (flush) 10 mL (BD POSIFLUSH) 10 mL INTRAVENOUS DIRECTED PRN Allergies As of Date: 10/24/2022 Allergen Noted Reaction GUAIFENESIN 07/23/2019 Anaphylaxis LACTOSE 01/24/2020 Anaphylaxis CLINDAMYCIN 05/13/2015 Hives ERYTHROMYCIN 05/13/2015 Hives and Other: See Comments MACADAMIA NUT OIL 05/27/2020 Other: See Comments OFLOXACIN 06/07/2017 Other: See Comments OXCARBAZEPINE 06/19/2021 Hives PENICILLINS 05/13/2015 Hives SUDAFED S.A. 11/25/2006 GI Upset and Vomiting TREE NUTS 03/28/2022 GI Upset, Hives, and Swelling Fully Assessed 10/24/2022 REVIEW OF SYSTEMS Abdomen: No bloating, early satiety, indigestion, or increased flatulence. No abdominal pain, nausea, vomiting, diarrhea, or constipation. Bladder: occas NASH. Breast: No breast lumps, nipple d/c, overlying skin changes, redness or skin retraction. Allergies and current medication updated:Yes EXAM: BP 106/66 Wt 163 lb (73.9kg) LMP 09/28/2022 GENERAL: pleasant, female in no apparent distress H ASSESSMENT AND PLAN: adenomyosis, menorrhagia. R/B/A to various options reviewed. Encouraged Mirena> Does not want hormones. Not a good candidate for ablation due to pain and adenomyosis, there would be a high chance of failure. Lysteda is a short term option but realistically not a good alf option until menopause. D/w her short and alf risks of surgery. Needs pap and EMB before any surgery or Mirena. She will consider and rediscuss at f/u appt. reviewed pelvic US, CBC/hormone levels, TSH Medical Decision Making: Problems: Moderate: 1+ chronic illnesses with change Data: Unique test result(s) reviewed: 3+ Unique test(s) ordered: 1 Risk: Moderate: Moderate risk from testing/treatment Medical Decision Making Level: 4 - Moderate Gerardo Bryson MD documented in this encounter [facility] 09-21-2022 Note HNO ID: [id number] Author: RT Minoo(R) Service: ? Author Type: Technologist Type: Progress Notes Filed: 09/21/2022 11:34 AM Note Text: Radiology Service Progress Note PATIENT NAME: Charmaine Nice DATE OF SERVICE: September 21, 2022 TIME: 11:33 AM PATIENT IDENTITY VERIFICATION COMPLETED USING TWO (2) IDENTIFIERS: Name and Date of confirmed by patient verbally. FALL SCREENING: Has the patient had 2 falls in the last year or 1 fall with injury or currently using an Ambulatory Assistive Device (Walker, Cane, Wheelchair, Crutches, etc.)? No PATIENT GENDER DATA: Female. status: : No status: NO. PATIENT RELEVANT IMPLANT DATA REVIEWED: Not Applicable RADIOLOGY DEPARTMENT: Mammography PERIPHERAL IV DATA: Not applicable SIGNED BY: RT Minoo(R) September 21, 2022 11:33 AM [facility] 09-19-2022 Note HNO ID: [id number] Author: Kaitlynn Sexton APRN.MACHINE CAGE MAKER Service: ? Author Type: Nurse Practitioner Type: Progress Notes Filed: 09/19/2022 11:27 AM Note Text: Charmaine Nice is a 42 year old female who presents for HPI: Patient presents today for follow-up on labs and pelvic ultrasound. Ultrasound report discussed with patient and addressed adenomyosis, possibly using Mirena IUD for menstrual control. Lab results reviewed with patient -all within normal range. OB History T0 L4 SAB0 IAB0 Ectopic0 Multiple0 Live Births0 Panel Saw Operator History LMP: 09/01/2022 (Approximate), Having periods Age at Menarche: Age at First : Age at Menopause: Panel Saw Operator History Comments: Sexual Activity: No sexual activity data on record; Female Contraception: No contraception data on record PAST MEDICAL HISTORY Diagnosis Date Acute appendicitis 05/05/2015 Asthma Depression Generalized anxiety disorder GERD (gastroesophageal reflux disease) silent Mitral valve prolapse Mixed hyperlipidemia OCD (obsessive compulsive disorder) PAST SURGICAL HISTORY Procedure Laterality Date SNGL X2 LAPAROSCOPIC APPENDECTOMY 05/05/2015 FAMILY HISTORY Problem Relation Age of Onset other (connective tissue disease) Mother other (rheumatoid arthritis) Mother Osteoporosis Mother other (enlarged heart) Mother other (fibrosis) Mother lung other (colorectal cancer) Father age 55 Cerebral palsy Sister other (white matter disease) Maternal Grandmother Dementia Maternal Grandmother Anxiety disorder Maternal Grandmother Heart disease Maternal Grandfather heart transplant Stroke Paternal Grandmother Heart Attack Paternal Grandfather Social History Tobacco Use Smoking status: Former Smokeless tobacco: Never Tobacco comments: quit smoking 1 year ago. occasional cigar. Vaping Use Vaping Use: Former Substances: THC Substance Use Topics Alcohol use: Not Currently Drug use: Yes Frequency: 3.0 times per week Types: Marijuana Current Outpatient Medications Medication Sig hydrOXYzine HCl (ATARAX) 50 mg tablet Take 1 tablet by mouth three times daily as needed. FLUoxetine (PROZAC) 40 mg capsule Take 1 capsule by mouth once daily. atorvastatin (LIPITOR) 20 mg tablet Take 1 tablet by mouth daily at bedtime. For cholesterol. Cholecalciferol, Vitamin D3, 50 mcg (2,000 unit) cap Take 1 capsule by mouth once daily. cetirizine (ZYRTEC) 10 mg tablet Take 1 tablet by mouth once daily. EPINEPHrine (EPIPEN) 0.3 mg/0.3 mL auto-injector INJECT CONTENTS OF 1 PEN NEEDED FOR ALLERGIC REACTION budesonide/formoterol fumarate (SYMBICORT INHALATION) Inhale 2 Puffs as instructed once daily. ALBUTEROL SULFATE (PROAIR HFA INHALATION) Inhale as instructed as needed. Current Facility-Administered Medications Medication Dose Route Frequency perflutren lipid microspheres 1.3 mL in NaCl (PF) 0.9% 10 mL injection (DEFINITY) INTRAVENOUS DIRECTED PRN sodium chloride 0.9 % (flush) 10 mL (BD POSIFLUSH) 10 mL INTRAVENOUS DIRECTED PRN Allergies As of Date: 09/19/2022 Allergen Noted Reaction GUAIFENESIN 07/23/2019 Anaphylaxis LACTOSE 01/24/2020 Anaphylaxis CLINDAMYCIN 05/13/2015 Hives ERYTHROMYCIN 05/13/2015 Hives and Other: See Comments MACADAMIA NUT OIL 05/27/2020 Other: See Comments OFLOXACIN 06/07/2017 Other: See Comments OXCARBAZEPINE 06/19/2021 Hives PENICILLINS 05/13/2015 Hives SUDAFED S.A. 11/25/2006 GI Upset and Vomiting TREE NUTS 03/28/2022 GI Upset, Hives, and Swelling Fully Assessed 09/19/2022 REVIEW OF SYSTEMS Expanded ROS: N/A Allergies and current medication updated:Yes EXAM: BP 114/70 Wt 162 lb 3.2 oz (73.6kg) LMP 09/01/2022 GENERAL: pleasant, female in no apparent distress HEENT: Normocephalic, atraumatic, and no lesions CHEST: Normal inspiratory effort NEURO: alert and oriented x3,exam grossly non-focal EXTREMITIES: normal ASSESSMENT/PLAN: 1. Hormone imbalance - ICD9: 259.9, ICD10: E34.9 (primary diagnosis) - CONSULT TO [facility]- Dr Kaley Faye 2. Encounter for screening mammogram for malignant neoplasm of breast - ICD9: V76.12, ICD10: Z12.31 - WENDI SCREENING - pt to schedule for annual/pap and mammogram Kaitlynn Sexton APRN.CNP Medical Decision Making: Problems: Low: Acute, uncomplicated illness or injury Risk: Low: Low risk from testing/treatment Medical Decision Making Level: 3 - Low [facility] 09-12-2022 Note HNO ID: [id number] Author: Kaitlynn Sexton APRN.CNP Service: ? Author Type: Nurse Practitioner Type: Progress Notes Filed: 09/12/2022 12:52 PM Note Text: Design Release Engineer offered: Patient declines. Charmaine Nice is a 42 year old female who presents for elevated estrogen levels HPI: pt states that she is experiencing : night sweats x 5 yrs Histamine intolerence- reactions to alcohol, caffeine, getting sick after certain foods Adreenaline surges sending into a panic attacks Increase depression IBS symptoms Pain with intercourse Painful menses- pain down into hips and legs. Lasting 4-7 days typically 20-21 up to 4-5 weeks - she had blood work done by her PCP that showed elevated estrogen levels - she is wondering if this could be the reason for the symptoms she is experiencing. OB History No obstetric history on file. Panel Saw Operator History LMP: 10/05/2021, Having periods Age at Menarche: Age at First : Age at Menopause: Panel Saw Operator History Comments: Sexual Activity: No sexual activity data on record; Female Contraception: No contraception data on record PAST MEDICAL HISTORY Diagnosis Date Acute appendicitis 05/05/2015 Asthma Depression Generalized anxiety disorder GERD (gastroesophageal reflux disease) silent Mitral valve prolapse Mixed hyperlipidemia OCD (obsessive compulsive disorder) PAST SURGICAL HISTORY Procedure Laterality Date SNGL X2 LAPAROSCOPIC APPENDECTOMY 05/05/2015 FAMILY HISTORY Problem Relation Age of Onset other (connective tissue disease) Mother other (rheumatoid arthritis) Mother Osteoporosis Mother other (enlarged heart) Mother other (fibrosis) Mother lung other (colorectal cancer) Father age 55 Cerebral palsy Sister other (white matter disease) Maternal Grandmother Dementia Maternal Grandmother Anxiety disorder Maternal Grandmother Heart disease Maternal Grandfather heart transplant Stroke Paternal Grandmother Heart Attack Paternal Grandfather Social History Tobacco Use Smoking status: Former Smokeless tobacco: Never Tobacco comments: quit smoking 1 year ago. occasional cigar. Vaping Use Vaping Use: Some days Substances: THC Substance Use Topics Alcohol use: Not Currently Drug use: Yes Types: Marijuana Comment: thc vape a couple of times daily. Current Outpatient Medications Medication Sig FLUoxetine (PROZAC) 40 mg capsule Take 1 capsule by mouth once daily. atorvastatin (LIPITOR) 20 mg tablet Take 1 tablet by mouth daily at bedtime. For cholesterol. Cholecalciferol, Vitamin D3, 50 mcg (2,000 unit) cap Take 1 capsule by mouth once daily. cetirizine (ZYRTEC) 10 mg tablet Take 1 tablet by mouth once daily. EPINEPHrine (EPIPEN) 0.3 mg/0.3 mL auto-injector INJECT CONTENTS OF 1 PEN NEEDED FOR ALLERGIC REACTION hydrOXYzine HCl (ATARAX) 50 mg tablet Take by mouth as needed. budesonide/formoterol fumarate (SYMBICORT INHALATION) Inhale 2 Puffs as instructed once daily. ALBUTEROL SULFATE (PROAIR HFA INHALATION) Inhale as instructed as needed. Current Facility-Administered Medications Medication Dose Route Frequency perflutren lipid microspheres 1.3 mL in NaCl (PF) 0.9% 10 mL injection (DEFINITY) INTRAVENOUS DIRECTED PRN sodium chloride 0.9 % (flush) 10 mL (BD POSIFLUSH) 10 mL INTRAVENOUS DIRECTED PRN Allergies As of Date: 09/12/2022 Allergen Noted Reaction GUAIFENESIN 07/23/2019 Anaphylaxis LACTOSE 01/24/2020 Anaphylaxis CLINDAMYCIN 05/13/2015 Hives ERYTHROMYCIN 05/13/2015 Hives and Other: See Comments MACADAMIA NUT OIL 05/27/2020 Other: See Comments OFLOXACIN 06/07/2017 Other: See Comments OXCARBAZEPINE 06/19/2021 Hives PENICILLINS 05/13/2015 Hives SUDAFED S.A. 11/25/2006 GI Upset and Vomiting TREE NUTS 03/28/2022 GI Upset, Hives, and Swelling Fully Assessed 08/29/2022 REVIEW OF SYSTEMS Expanded ROS: N/A Allergies and current medication updated:Yes EXAM: LMP 10/05/2021 GENERAL: pleasant, female in no apparent distress HEENT: Normocephalic, atraumatic, and no lesions CHEST: Normal inspiratory effort NEURO: alert and oriented x3,exam grossly non-focal ASSESSMENT/PLAN: 1. Dysmenorrhea - ICD9: 625.3, ICD10: N94.6 (primary diagnosis) - PELVIC US WHI 2. Estrogen increased - ICD9: 256.0, ICD10: E28.0 - PROLACTIN BLD - TESTOSTERONE, FREE AND TOTAL - DHEA-S BLD - HYDROXYPROGESTERO-17 - ESTRADIOL-17B BLD - LUTEINIZING HORMONE - CA 125 BLD 3. Pelvic pain in female - ICD9: 625.9, ICD10: R10.2 - PELVIC US WHI 4. Food intolerance - ICD9: 579.8, ICD10: K90.49 - CONSULT TO GASTROENTEROLOGY 5. Irritable bowel syndrome with diarrhea - ICD9: 564.1, ICD10: K58.0 - CONSULT TO GASTROENTEROLOGY Pt is follow up with me 2 days after US to review result Kaitlynn Sexton APRN.MACHINE CAGE MAKER Medical Decision Making: Problems: Moderate: New problem with uncertain prognosis Data: Unique test(s) ordered: 3+ Risk: Low: Low risk from testin (more content not included)... [facility] 09-09-2022 Miscellaneous Notes Please help schedule with CONCRETE FINISHER. documented in this encounter [facility] 08-30-2022 History of Presen t illness Narrative Radiology Service Progress Note PATIENT NAME: Charmaine Nice DATE OF SERVICE: August 30, 2022 TIME: 4:02 PM PATIENT IDENTITY VERIFICATION COMPLETED USING TWO (2) IDENTIFIERS: Name and Date of confirmed by patient verbally. FALL SCREENING: Has the patient had 2 falls in the last year or 1 fall with injury or currently using an Ambulatory Assistive Device (Walker, Cane, Wheelchair, Crutches, etc.)? No PATIENT GENDER DATA: Female. status: : No status: NO. PATIENT RELEVANT IMPLANT DATA REVIEWED: Not Applicable RADIOLOGY DEPARTMENT: Ultrasound PERIPHERAL IV DATA: Not applicable SIGNED BY: Katelynn Bateman RDMS August 30, 2022 4:02 PM documented in this encounter [facility] 08-29-2022 Instructions Meron Ram APRN.CNP - 08/29/2022 1:52 PM EST Get fasting labs -- 10-12 fast. Schedule ultrasound. documented in this encounter [facility] 08-29-2022 History of Presen t illness Narrative This is a 42 year old female who presents today with: Patient presents with: Recheck: Would like labs checked HISTORY OF PRESENT ILLNESS: Charmaine Nice is a 42 year old female. Patient presents with: Recheck: Would like labs checked Pt presents today for recheck. She is interested in getting repeat labs. She reports that she continues with perimenopausal symptoms. She has been having hot flashes. Continues with anxiety. Has also been having problems, mostly at night, with restless legs. Reports more IBS type symptoms. Reports sometimes can get some stomach pains. Lactose intolerant. Watches diet. Foods that she tolerates varies day-to-day. PAST MEDICAL HISTORY: PAST MEDICAL HISTORY Diagnosis Date Acute appendicitis 05/05/2015 Asthma Depression Generalized anxiety disorder GERD (gastroesophageal reflux disease) silent Mitral valve prolapse Mixed hyperlipidemia OCD (obsessive compulsive disorder) PAST SURGICAL HISTORY Procedure Laterality Date SNGL X2 LAPAROSCOPIC APPENDECTOMY 05/05/2015 ALLERGIES Guaifenesin, Lactose, Clindamycin, Erythromycin, Macadamia Nut Oil, Ofloxacin, Oxcarbazepine, Penicillins, Sudafed S.A., and Tree Nuts MEDICATIONS Current Outpatient Medications Medication Sig FLUoxetine (PROZAC) 40 mg capsule Take 1 capsule by mouth once daily. atorvastatin (LIPITOR) 20 mg tablet Take 1 tablet by mouth daily at bedtime. For cholesterol. Cholecalciferol, Vitamin D3, 50 mcg (2,000 unit) cap Take 1 capsule by mouth once daily. cetirizine (ZYRTEC) 10 mg tablet Take 1 tablet by mouth once daily. EPINEPHrine (EPIPEN) 0.3 mg/0.3 mL auto-injector INJECT CONTENTS OF 1 PEN NEEDED FOR ALLERGIC REACTION hydrOXYzine HCl (ATARAX) 50 mg tablet Take by mouth as needed. budesonide/formoterol fumarate (SYMBICORT INHALATION) Inhale 2 Puffs as instructed once daily. ALBUTEROL SULFATE (PROAIR HFA INHALATION) Inhale as instructed as needed. hydroxyzine pamoate (VISTARIL ORAL) Take 50 mg by mouth. (Patient not taking: Reported on 12/07/2021 ) Current Facility-Administered Medications Medication Dose Route Frequency perflutren lipid microspheres 1.3 mL in NaCl (PF) 0.9% 10 mL injection (DEFINITY) INTRAVENOUS DIRECTED PRN sodium chloride 0.9 % (flush) 10 mL (BD POSIFLUSH) 10 mL INTRAVENOUS DIRECTED PRN FAMILY HISTORY Problem Relation Age of Onset other (connective tissue disease) Mother other (rheumatoid arthritis) Mother Osteoporosis Mother other (enlarged heart) Mother other (fibrosis) Mother lung other (colorectal cancer) Father age 55 Cerebral palsy Sister other (white matter disease) Maternal Grandmother Dementia Maternal Grandmother Anxiety disorder Maternal Grandmother Heart disease Maternal Grandfather heart transplant Stroke Paternal Grandmother Heart Attack Paternal Grandfather Social History Tobacco Use Smoking status: Former Smokeless tobacco: Never Tobacco comments: quit smoking 1 year ago. occasional cigar. Vaping Use Vaping Use: Some days Substances: THC Substance Use Topics Alcohol use: Not Currently Drug use: Yes Types: Marijuana Comment: thc vape a couple of times daily. EXAM: BP 104/82 Pulse 83 Resp 18 Wt 72.6 kg (160 lb) LMP 10/05/2021 SpO2 98% BMI 27.46 kg/m PHYSICAL EXAM: General Appearance: Well appearing, alert, in no acute distress, well-hydrated, well nourished.. Skin: Skin color, texture, turgor normal, no suspicious rashes or lesions. Head: Normocephalic, no masses, lesions, tenderness or abnormalities. Eyes: Anicteric sclera. Pupils are equally round and reactive to light. Extraocular movements are intact. . Ears: External ears normal, canals clear. Oropharynx: Lips, mucosa, and tongue normal, teeth and gums normal, oropharynx normal. Lungs: Lungs clear to auscultation. No wheezing, rhonchi, rales.. Heart: RRR without murmur, gallop, or rubs. No ectopy. Extremities: No deformities, edema, skin discoloration, clubbing or cyanosis. Good capillary refill. . Neurologic: Gait normal. ASSESSMENT/PLAN: 1. Perimenopausal - ICD9: 627.2, ICD10: N95.1 (primary diagnosis) Continues with perimenopausal type symptoms. Recheck levels. - TSH BLD - ESTROGEN FRACTION BL - FSH BLD 2. Vitamin D deficiency - ICD9: 268.9, ICD10: E55.9 - VITAMIN D 25 HYDROXY 3. Restless leg - ICD9: 333.94, ICD10: G25.81 Check iron/ferritin. If no deficiency, could consider a trial of gabapentin, which may also help with hot flashes and anxiety. - CBC + DIFF - COMP METABOLIC PANEL - FERRITIN BLD - IRON + TIBC - MAGNESIUM BLD - VITAMIN B12 BLOOD 4. Epigastric pain - ICD9: 789.06, ICD10: R10.13 R/o vik. - US ABD RT UPPER QUADRANT 5. Hyperlipidemia, mixed - ICD9: 272.2, ICD10: E78.2 Due for fasting labs. - COMP METABOLIC PANEL - LIPID PANEL BASIC Discussed treatment plan and patient voices understanding. Patient's questions answered appropriately. Medications and potential side effects were discussed and patient voices understanding. Return to the office as scheduled or as needed for worsening/no improvement. Meron Ram APRN.AALIYAH The patient indicates understanding of these issues and agrees with the plan. documented in this encounter [facility] 07-04-2022 Miscellaneous Notes Pt notified via [email or web address]. Iliana Hinton Ma Rx sent. Labs ordered. Patient calling back stating she doesn't want to go back to the 5,000 units but somewhere between 1,000 and 5,000. Patient also asking for vitamin levels to be re-checked. Patient calls and states that she was taking 5,000 units and then she ran out. Patient states that when she went to tile picker prescription, it was only for 1,000 units. Patient asking for an increase in dosage because she is really feeling the difference of the decrease in Vitamin D3. Please review and advise, Tara Alvarado RN Patient sent refill request for Vitamin D3, wanting to increase dose. Phone call placed to patient, no answer left voicemail to call back regarding refill request. Please ask why she needs increased dose of Vitamin D3. SHON Anglin documented in this encounter [facility] 07-01-2022 Miscellaneous Notes Patient phones requesting refills as follows: Requested Prescriptions Pending Prescriptions Disp Refills atorvastatin (LIPITOR) 20 mg tablet 30 tablet 3 Sig: Take 1 tablet by mouth daily at bedtime. For cholesterol. ANNA: 11/30/2021 NOV: No future appointment scheduled Please review and advise. SHON Anglin documented in this encounter [facility] 05-11-2022 Miscellaneous Notes Last office visit: 11/30/21 F/u scheduled: none Iliana Hinton Ma documented in this encounter [facility] 04-11-2022 Miscellaneous Notes Patient phones requesting refills as follows: Requested Prescriptions Pending Prescriptions Disp Refills atorvastatin (LIPITOR) 20 mg tablet 30 tablet 3 Sig: Take 1 tablet by mouth daily at bedtime. For cholesterol. ANNA 11/30/21 NOV no upcoming appt Please review and advise. Izaiah Tam LPN documented in this encounter [facility] 03-22-2022 History of Presen t illness Narrative Radiology Service Progress Note PATIENT NAME: Charmaine Nice DATE OF SERVICE: March 22, 2022 TIME: 1:38 PM PATIENT IDENTITY VERIFICATION COMPLETED USING TWO (2) IDENTIFIERS: Name and Date of confirmed by patient verbally. FALL SCREENING: Has the patient had 2 falls in the last year or 1 fall with injury or currently using an Ambulatory Assistive Device (Walker, Cane, Wheelchair, Crutches, etc.)? No PATIENT GENDER DATA: Female. status: : No status: NO. PATIENT RELEVANT IMPLANT DATA REVIEWED: Not Applicable RADIOLOGY DEPARTMENT: Ultrasound PERIPHERAL IV DATA: Not applicable SIGNED BY: RT Duke(Kajal) March 22, 2022 1:38 PM documented in this encounter [facility] 03-22-2022 History of Presen t illness Narrative Radiology Service Progress Note PATIENT NAME: Charmaine Nice DATE OF SERVICE: March 22, 2022 TIME: 1:20 PM PATIENT IDENTITY VERIFICATION COMPLETED USING TWO (2) IDENTIFIERS: Name and Date of confirmed by patient verbally. FALL SCREENING: Has the patient had 2 falls in the last year or 1 fall with injury or currently using an Ambulatory Assistive Device (Walker, Cane, Wheelchair, Crutches, etc.)? No PATIENT GENDER DATA: Female. status: : No status: NO. PATIENT RELEVANT IMPLANT DATA REVIEWED: Not Applicable RADIOLOGY DEPARTMENT: Mammography PERIPHERAL IV DATA: Not applicable SIGNED BY: Jd Ching March 22, 2022 1:20 PM documented in this encounter [facility] 01-27-2022 Miscellaneous Notes AFTER PT PULM APPT AND CLEARANCE IS OBTAINED WILL PROCEED WITH SCHEDULING COLON/EGD IN [place] WITH [facility] Pulmonary appointment is in February in [place] will request clearance at that time Izaiah Duong [place] with [facility] in [place]- Pulmonary Images from the original note were not included. I did not. When patient came in [place] never even knew about their milk treater because she never even mentioned them needing clearance. Izaiah Duong You 2 days ago HEMANTH Do you know what milk treater patient is seeing if any? Message text You Izaiah Duong 6 days ago BH Can we please get the proper clearance for this patient so we can reschedule procedure in [place]. Thank you Vannesa Message text [facility] for [facility] called to let Dr Acosta know patients surgery was cancelled d/t not getting pulmonary clearance, Was in ER a month ago for breathing concerns and on pulmonary medications. FYI documented in this encounter [facility] 01-19-2022 Miscellaneous Notes Responded in separate encounter from same date documented in this encounter [facility] 01-19-2022 Miscellaneous Notes Called patient to advise we received approval for he right evlt , she said she wants to hold off for now she would like to think about it a little longer. She is concerned about the risk of getting a blood clot. She will call us if she decides to get scheduled. Authorization is only good until 04/21/22. Encounter closed. documented in this encounter [facility] 01-10-2022 History of Presen t illness Narrative Images from the original note were not included. [facility] SECTION OF [facility]IONAL CARDIOLOGY Cardiology ([facility] ) [address] [facility] [id number] OUTPATIENT VISIT DATE 01/09/2022 PRIMARY CARE PHYSICIAN: Meron Olivarez [place] [id number] REFERRING PHYSICIAN: Meron Olivarez [facility] [address] HISTORY OF PRESENT ILLNESS: Ms. Nice is a 41 year old woman with a history of mitral valve prolapse and significant dyslipidemia who is here to establish new cardiology follow-up. She was admitted to an outside emergency room earlier in the year after learning that her cholesterol was very abnormal. She had cardiac enzymes checked in the ER and was discharged home with a diagnosis of panic attack since that time, she tells me she has been feeling much better. She remains active. She is a lifelong non-smoker. She does not tend to exercise on a frequent basis. She denies feelings of palpitations, heart racing, lightheadedness, dizziness, or syncope PAST MEDICAL HISTORY Diagnosis Date Acute appendicitis 05/05/2015 Asthma Depression Generalized anxiety disorder GERD (gastroesophageal reflux disease) silent Mitral valve prolapse Mixed hyperlipidemia OCD (obsessive compulsive disorder) PAST SURGICAL HISTORY Procedure Laterality Date SNGL X2 LAPAROSCOPIC APPENDECTOMY 05/05/2015 SOCIAL HISTORY Social History Tobacco Use Smoking status: Former Smoker Smokeless tobacco: Never Used Tobacco comment: quit smoking 1 year ago. occasional cigar. Vaping Use Vaping Use: current everyday user Substance Use Topics Alcohol use: Not Currently Drug use: Yes Types: Marijuana Comment: thc vape a couple of times daily. FAMILY HISTORY Problem Relation Age of Onset other (connective tissue disease) Mother other (rheumatoid arthritis) Mother Osteoporosis Mother other (enlarged heart) Mother other (fibrosis) Mother lung other (colorectal cancer) Father age 55 Cerebral palsy Sister other (white matter disease) Maternal Grandmother Dementia Maternal Grandmother Anxiety disorder Maternal Grandmother Heart disease Maternal Grandfather heart transplant Stroke Paternal Grandmother Heart Attack Paternal Grandfather ALLERGIES: ALLERGIES Allergen Reactions Clindamycin Hives Erythromycin Hives, Other: See Comments fever Penicillins Hives Sudafed S.A. GI Upset, Vomiting MEDICATIONS: atorvastatin (LIPITOR) 20 mg tablet Take 1 tablet by mouth daily at bedtime. For cholesterol. hydrOXYzine HCl (ATARAX) 50 mg tablet Take by mouth three times daily. Cholecalciferol, Vitamin D3, 25 mcg (1,000 unit) cap Take 1 capsule by mouth once daily. budesonide/formoterol fumarate (SYMBICORT INHALATION) Inhale as instructed. cetirizine (ZYRTEC) 10 mg tablet Take 1 tablet by mouth once daily. FLUoxetine HCl (PROZAC) 40 mg capsule Take 40 mg by mouth once daily. ALBUTEROL SULFATE (PROAIR HFA INHALATION) Inhale as instructed. hydroxyzine pamoate (VISTARIL ORAL) Take 50 mg by mouth. REVIEW OF SYSTEMS: Review of Systems Constitutional: Negative for chills, fever, malaise/fatigue and weight loss. HENT: Negative for hearing loss and sore throat. Eyes: Negative for blurred vision and double vision. Respiratory: Negative. Cardiovascular: Negative. Genitourinary: Negative for dysuria, frequency, hematuria and urgency. Musculoskeletal: Negative. Skin: Negative. Neurological: Negative for dizziness, seizures, loss of consciousness, weakness and headaches. Endo/Heme/Allergies: Negative for environmental allergies. Does not bruise/bleed easily. Psychiatric/Behavioral: Negative for depression. PHYSICAL EXAMINATION: BP 130/80 Pulse 76 Wt 150 lb (68.0kg) LMP 10/05/2021 time General: Very pleasant woman sitting appears comfortable no apparent distress. She is alert and oriented x3 HEENT: Carotid upstrokes are brisk bilaterally without bruits no JVD appreciated. Pulmonary: Lungs are clear no rales, wheezes, rhonchi Cardiovascular: Normal S1, S2 with regular rate and rhythm. No murmurs, rubs, gallops Extremities: Warm, well-perfused, no lower extremity edema. 2+ distal pulses CARDIOVASCULAR MEDICINE TESTING: Echocardiogram 09/13/2021: - Exam indication: Chest Pain - The left ventricle is normal in size. Left ventricular systolic function is normal. EF = 60 5% (2D biplane) Normal left ventricular diastolic function. - The right ventricle is normal in size. Right ventricular systolic function is normal. MITRAL VALVE There is trace mitral valve regurgitation. There is no thickening. There is mild prolapse of the posterior mitral leaflet. The pressure half time is 49 msec. The peak mitral E/A ratio is 1.22. The average mitral E/e' ratio is 6.5. The mitral flow deceleration time is 169 msec. I have personally reviewed the Echocardiogram. IMPRESSION: Ms. Nice is a 41 year old woman with a history of mild mitral valve prolapse and hyperlipidemia who presents the office to establish new cardiology follow-up PLAN AND RECOMMENDATIONS: 1. Mitral valve prolapse - ICD9: 424.0, ICD10: I34.1 Patient's echocardiogram was reviewed. Recommended follow-up echocardiograms every 2 to 3 years or if symptoms develop. 2. Mixed hyperlipidemia - ICD9: 272.2, ICD10: E78.2 Maintained on Lipitor 20 mg daily. Marked improvement in her cholesterol profile. Discussed dietary modification for further improvements and cardiovascular risk reduction. Follow-up 1 year Joni Alfaro MD documented in this encounter [facility] 12-29-2021 Miscellaneous Notes Submitted to insurance for right evlt . Encounter closed. Please review and advise on testing she rescheduled in February documented in this encounter [facility] 12-27-2021 Miscellaneous Notes Patient called to request this medication again. Patient phones requesting refills as follows: Pending Prescriptions Disp Refills ATORVASTATIN 20 MG TABLET 30 tablet 3 Sig: Take 1 tablet by mouth daily at bedtime. For cholesterol. ARGELIA: No ANNA-11/30/21 Labs-08/27/21 NOV-none med filled 08/30/21 Please review and advise. Sharon Thacker LPN documented in this encounter [facility] 12-07-2021 Miscellaneous Notes 12/30/2021 COLON EGD LODI documented in this encounter [facility] Evaluation + Plan note No data available for this section [facility] Diagnosis Mitral valve prolapse Mitral valve disorders Mixed hyperlipidemia Screening for colon cancer Special screening for malignant neoplasms, colon Family history of colon cancer Family history of malignant neoplasm of gastrointestinal tract Reflux gastritis Other specified gastritis without mention of hemorrhage Cough Hiatal hernia Diaphragmatic hernia without mention of obstruction or gangrene [facility] Diagnosis Screening for colon cancer- Primary Special screening for malignant neoplasms, colon Family history of colon cancer Family history of malignant neoplasm of gastrointestinal tract Reflux gastritis Other specified gastritis without mention of hemorrhage Cough Hiatal hernia Diaphragmatic hernia without mention of obstruction or gangrene [facility] Diagnosis Inconclusive mammogram Screening for colon cancer Special screening for malignant neoplasms, colon Family history of colon cancer Family history of malignant neoplasm of gastrointestinal tract Reflux gastritis Other specified gastritis without mention of hemorrhage Cough Hiatal hernia Diaphragmatic hernia without mention of obstruction or gangrene documented in this encounter [facility] note* Diagnosis Inconclusive mammogram Screening for colon cancer Special screening for malignant neoplasms, colon Family history of colon cancer Family history of malignant neoplasm of gastrointestinal tract Reflux gastritis Other specified gastritis without mention of hemorrhage Cough Hiatal hernia Diaphragmatic hernia without mention of obstruction or gangrene [facility] Diagnosis Hyperlipidemia, mixed Mixed hyperlipidemia documented in this encounter [facility] note* Diagnosis Vitamin D deficiency Unspecified vitamin D deficiency documented in this encounter [facility] note* Diagnosis Perimenopausal- Primary Symptomatic menopausal or female climacteric states Vitamin D deficiency Unspecified vitamin D deficiency Restless leg Restless legs syndrome (RLS) Epigastric pain Abdominal pain, epigastric Hyperlipidemia, mixed Mixed hyperlipidemia documented in this encounter [facility] note* Diagnosis Dysmenorrhea- Primary documented in this encounter [facility] note* Diagnosis Estrogen increased- Primary Hyperestrogenism documented in this encounter [facility] note* Diagnosis Dysmenorrhea Pelvic pain in female Unspecified symptom associated with female genital organs documented in this encounter [facility] note* Diagnosis Abnormal uterine bleeding (AUB)- Primary Menorrhagia with regular cycle Excessive or frequent menstruation documented in this encounter [facility] note* Diagnosis Contact dermatitis due to other agent, unspecified contact dermatitis type- Primary documented in this encounter [facility] note* Diagnosis Furuncle- Primary Carbuncle and furuncle of unspecified site documented in this encounter [facility] note* Diagnosis Skin lesions- Primary documented in this encounter [facility] note* Diagnosis Moderate persistent asthma without complication Seasonal allergies Allergic rhinitis, cause unspecified documented in this encounter [facility] note* Diagnosis Gastroesophageal reflux disease, unspecified whether esophagitis present- Primary documented in this encounter [facility] note* Diagnosis 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 De La Torre's esophagus Gastroesophageal reflux disease, unspecified whether esophagitis present Hiatal hernia Diaphragmatic hernia without mention of obstruction or gangrene documented in this encounter [facility] note* Diagnosis Epigastric pain Abdominal pain, epigastric documented in this encounter [facility] Discharge instructions No data available for this section [facility] Reason for referral (narrative)* Outpatient Procedure (Routine) - Pending Review Specialty Diagnoses / Procedures Referred By Billy lau Referred To Contact [facility] Diagnoses Screening for colon cancer Family history of colon cancer Procedures COLONOSCOPY DIAGNOSTIC COLONOSCOPY FLX DX W/COLLJ SPEC WHEN PFRMD Belen Damon PA-C [address] [place] [address] [facility] [address] [place] [id number] Referral ID Status Reason Start Date Expiration Date Visits Requested Visits Authorized [id number] Pending Review Auto-Generat ed Referral 12/07/2021 12/07/2022 1 1 * Outpatient Procedure (Routine) - Pending Review Specialty Diagnoses / Procedures Referred By Billy lau Referred To Contact [facility] Diagnoses Reflux gastritis Cough Hiatal hernia Procedures EGD DIAGNOSTIC ESOPHAGOGASTRODUODENOSC OPY TRANSORAL DIAGNOSTIC Belen Damon PA-C [address] [place] [address] [facility] [address] [address] Referral ID Status Reason Start Date Expiration Date Visits Requested Visits Authorized [id number] Pending Review Auto-Generat ed Referral 12/07/2021 12/07/2022 1 1 [facility] for referral (narrative)* Diagnostic Procedure Only (Routine) - Closed Specialty Diagnoses / Procedures Referred By Billy lau Referred To Contact [facility] Diagnoses Inconclusive mammogram Procedures US BREAST LTD LT US BREAST UNI REAL TIME WITH IMAGE LIMITED Meron Ram, [place].MACHINE CAGE MAKER [address] [place] [address] [facility] [address] [place] [address] Referral ID Status Reason Start Date Expiration Date V isits Requested Visits Authorized [id number] Closed Auto-Generate d Referral 03/21/2022 11/18/2022 1 1 [facility] for referral (narrative)* Diagnostic Procedure Only (Routine) - Authorized Specialty Diagnoses / Procedures Referred By Contac t Referred To Contact [facility] Diagnoses Epigastric pain Procedures US ABD RT UPPER QUADRANT US ABDOMINAL REAL TIME W/IMAGE LIMITED Meron Ram APRN.MACHINE CAGE MAKER [address] [place] [address] [facility] Referral ID Status Reason Start Date Expiration Date Visits Requested Visits Authorized [id number] Authorized Auto-Generat ed Referral 08/29/2022 09/28/2023 1 1 [facility] for referral (narrative)* Outpatient Procedure (Routine) - Authorized Specialty Diagnoses / Procedures Referred By Contac t Referred To Contact [facility] Diagnoses Abnormal uterine bleeding (AUB) Procedures ENDOMETRIAL BIOPSY ENDOMETRIAL BX W/WO ENDOCERVIX BX W/O DILAT SPX Gerardo Bryson MD [address] [place] [address] [facility] [address] [place] [address] Referral ID Status Reason Start Date Expiration Date Visits Requested Visits Authorized [id number] Authorized Auto-Generat ed Referral 10/24/2022 10/24/2023 1 1 [facility] for referral (narrative)* Diagnostic Procedure Only (Routine) - Closed Specialty Diagnoses / Procedures Referred By Contac t Referred To Contact [facility] Diagnoses Epigastric pain Procedures US ABD RT UPPER QUADRANT US ABDOMINAL REAL TIME W/IMAGE LIMITED Meron Ram APRN.MACHINE CAGE MAKER [address] [place] [address] [place] [address] Referral ID Status Reason Start Date Expiration Date V isits Requested Visits Authorized [id number] Closed Auto-Generate d Referral 08/29/2022 09/28/2023 1 1 [facility] for visit Narrative* Diagnostic Procedure Only (Routine) - Closed Specialty Diagnoses / Procedures Referred By Contac t Referred To Contact [facility] Diagnoses Inconclusive mammogram Procedures WENDI DIAGNOSTIC LT DIAGNOSTIC MAMMOGRAPHY COMPUTER-AIDED DETCJ Meron Mari APRN.MACHINE CAGE MAKER [address] [place] [address] [facility] [address] [place] [address] Referral ID Status Reason Start Date Expiration Date V isits Requested Visits Authorized [id number] Closed Auto-Generate d Referral 03/21/2022 11/18/2022 1 1 [facility] for visit Narrative* Diagnostic Procedure Only (Routine) - Closed Specialty Diagnoses / Procedures Referred By Billy lau Referred To Contact [facility] Diagnoses Dysmenorrhea Pelvic pain in female Procedures PELVIC US WHI US PELVIC NONOBSTETRIC REAL-TIME IMAGE COMPLETE Kaitlynn Sexton APRN.MACHINE CAGE MAKER [address] [place] [address] [facility] [address] [place] [address] Referral ID Status Reason Start Date Expiration Date V isits Requested Visits Authorized [id number] Closed Auto-Generate d Referral 09/12/2022 09/12/2023 1 1 [facility] Reason for Referral Status Reason Specialty Diagnoses / Procedures Referre d By Contact Referred To Contact [facility] Diagnoses Claudication (HCC) Procedures VL CHIQUIS BILATERAL LIMITED 1-2 LEVELS Karon Dumont MD [address] [place] [address] Status Reason Specialty Diagnoses / Procedures Re ferred By Contact Referred To Contact [facility] Asthma, unspecified asthma severity, unspecified whether complicated, unspecified whether persistent Procedures Full PFT Study With Bronchodilator Starr Bay, CLINICAL SALES CONSULTANT - MACHINE CAGE MAKER [address] [facility] [address] [place] [address] [facility] [address] [place] [address] Status Reason Specialty Diagnoses / Procedures Referre d By Contact Referred To Contact [facility] Diagnoses Right leg pain Procedures VL DUP LOWER EXTREMITY VENOUS BILATERAL Nathan Seaman, JIMENEZ [address] [place] [address] Specialty Diagnoses / Procedures Referred By Contac t Referred To Contact Gynecology Diagnoses Estrogen increased Procedures CONSULT TO GYNECOLOGY OFFICE/OUTPATIENT [facility] 60-74 MINUTES Meron Ram, CLINICAL SALES CONSULTANT.MACHINE CAGE MAKER [address] [place] [address] Referral ID Status Reason Start Date Expiration Date V isits Requested Visits Authorized [id number] Closed PCP Requested Referral Auto-Generated Referral 09/09/2022 09/09/2023 1 1 Specialty Diagnoses / Procedures Referred By Contac t Referred To Contact Starr Bay, CLINICAL SALES CONSULTANT - MACHINE CAGE MAKER [address] [place] [address] [place] [address] Referral ID Status Reason Start Date Expiration Date V isits Requested Visits Authorized [id number] Pending Review 1 1 Specialty Diagnoses / Procedures Referred By Contac t Referred To Contact Diagnoses Moderate persistent asthma without complication Seasonal allergies Starr Bay, CLINICAL SALES CONSULTANT - MACHINE CAGE MAKER [address] [place] [place] [address] Referral ID Status Reason Start Date Expiration Date V isits Requested Visits Authorized [id number] Pending Review 1 1 Specialty Diagnoses / Procedures Referred By Contac t Referred To Contact General Surgery Diagnoses Gastroesophageal reflux disease, unspecified whether esophagitis present Procedures CONSULT TO GENERAL SURGERY OFFICE/OUTPATIENT [facility] 60-74 MINUTES Meron Ram, CLINICAL SALES CONSULTANT.MACHINE CAGE MAKER [address] [place] [address] Referral ID Status Reason Start Date Expiration Date Visits Requested Visits Authorized [id number] Authorized PCP Requested Referral 03/07/2023 03/06/2024 1 1 Assessments Diagnosis Claudication (HCC) Peripheral vascular disease, unspecified Diagnosis Asthma, unspecified asthma severity, unspecified whether complicated, unspecified whether persistent Diagnosis Asthma, unspecified asthma severity, unspecified whether complicated, unspecified whether persistent Diagnosis Allergic reaction, initial encounter Diagnosis 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 nut Diagnosis Right leg pain Pain in limb Diagnosis Right leg pain Pain in limb Diagnosis Need for lipid screening Screening for lipoid disorders Palpitations Diagnosis Anxiety state- Primary Anxiety state, unspecified Diagnosis Dysuria Advance Directives No Advanced Directives Records FoundDocuments on File Type Date Recorded Patient Maintenance Journeyman Expl anation Advance Directives and Living Will Power of Assorter Documents on File Type Date Recorded Patient Maintenance Journeyman Expl anation Advance Directives and Living Will Power of Assorter Documents on File Type Date Recorded Patient Maintenance Journeyman Expl anation Advance Directives and Living Will declined nf [id number] Power of Assorter see above Documents on File Type Date Recorded Patient Maintenance Journeyman Expl anation ACP-Advance Directive declin ed nfo [phone] ACP-Power of Assorter see ab ove Documents on File Type Date Recorded Patient Maintenance Journeyman Expl anation ACP-Advance Directive declin ed nfo [phone] ACP-Power of Assorter see ab ove Documents on File Type Date Recorded Patient Maintenance Journeyman Expl anation Advance Directive(s) 05/31/2019 10:13 PM Documents on File Type Date Recorded Patient Maintenance Journeyman Expl anation Advance Directive(s) 05/31/2019 10:13 PM Discharge Instructions * Attachments The following attachments cannot be sent through Care Everywhere. * Allergic Reaction (Somali) documented in this encounter* Instructions* Matthew Barragan APRN - CNP - 01/25/2020 Continue the prednisone, Benadryl and Pepcid as prescribed yesterday. Please avoid any future contact with tree nuts. * Attachments The following attachments cannot be sent through Care Everywhere. * Food Allergy: Tree Nut (Somali) documented in this encounter* Instructions* Nathan Seaman PA - 07/30/2020 Please follow up with outpatient ultrasound tomorrow. If they are unwilling to scan you given your possible Covid 19 infection then please return to the emergency department tomorrow between the hours of 9 and 530 for an ultrasound of your leg. Please take the aspirin as prescribed. Take Zofran as needed for nausea. If you develop persistent fever, worsening shortness of breath (especially at rest), worsening of your condition in any way please contact your doctor for further instructions or return to the emergency Department immediately. Please self monitor at home for the next 2 weeks if your test is positive. If you have a negative test, you may return to work once your symptoms resolve. I do expect that you will get better, if youget worse please contact your doctor for further instructions. Please drink plenty of fluids and consider and electrolyte replenishing drink such as Gatorade or Pedialyte. Your body is actively using electrolytes to combat this viral illness. Take cough medications as indicated (Robitussin). Take fever reducing medications if you develop fevers (temperature 100.4 or greater). Fever reducing medications include medication such as Tylenol and ibuprofen. You may take 1 g of Tylenol every 6 hours or 600 mg of ibuprofen every 6 hours. You may also take these medications together. documented in this encounter* Attachments The following attachments cannot be sent through Care Everywhere. * Panic Attacks (Somali) documented in this encounter Summary Purpose Family History No Family History Records FoundNo Family History Records FoundNo Family History Records FoundNo Family History Records FoundNo Family History Records Found Additional Source Comments Reason for Visit (unrecogniz ed section and content) Specialty Diagnoses / Procedures Referred By Billy t Referred To Contact [facility] Diagnoses Epigastric pain Procedures US ABD RT UPPER QUADRANT US ABDOMINAL REAL TIME W/IMAGE LIMITED Meron Ram, [employer].MACHINE CAGE MAKER [address] [place] [address] [place] [address] Referral ID Status Reason Start Date Expiration Date V isits Requested Visits Authorized [id number] Closed Auto-Generate d Referral 08/29/2022 09/28/2023 1 1 Reason Comments Allergic Reaction Patient had chocolat e covered cashews about 1.5 hrs ago, 20 min later developed redness to her face, throat and chest tightness she took benadryl and 10mg of prednison. Patient reports improvement of symptoms, redness noted to the face and swelling to the eyes, airway intact. Lungs clear Reason Comments Allergic Reaction Patient to ED for c/ o allergic reaction that began yesterday. States she was wheezing, with a headache and facial edema present. States this occurred after eating walnuts yesterday and then applying a facemask which contained walnuts as well. Patient appears calm, cooperative, unlabored breathing with no wheezes present. Reason Comments Leg Pain pt c/o right leg navdeep n behind her knee. pt states she has numbness and tingling going down her leg to her toes Reason Comments Chest Pain sitting in couch and felt hot and developed CP and SOB. CP on L side down both arms. describes as pressure. Reason Comments Medical Genetics Director - Other Pt needs to be rescheduled in January. Reason Onset Date Comments Refill Request 12/26/2021 Reason Comments Consult Specialty Diagnoses / Procedures Referred By Contac t Referred To Contact Cardiology Diagnoses Hyperlipidemia, mixed Procedures CONSULT TO CARDIOLOGY NEW PATIENT VISIT LEVEL 5 Meron Ram, [employer].MACHINE CAGE MAKER [address] [place] [address] Referral ID Status Reason Start Date Expiration Date V isits Requested Visits Authorized [id number] Closed PCP Requested Referral 08/30/2021 08/30/2022 1 1 Reason Comments Future Appointment Reason Comments 12/30/2021 COLON EGD LODI Reason Comments Consult Initial [facility] Pt Outr each Reason Comments Patient Update procedure cancel by anaesthesia Specialty Diagnoses / Procedures Referred By Billy t Referred To Contact [facility] Diagnoses Inconclusive mammogram Procedures US BREAST LTD LT US BREAST UNI REAL TIME WITH IMAGE LIMITED Meron Ram, BENT[place].MACHINE CAGE MAKER [address] [place] [address] [facility] [address] [place] [address] Referral ID Status Reason Start Date Expiration Date V isits Requested Visits Authorized [id number] Closed Auto-Generate d Referral 03/21/2022 11/18/2022 1 1 Reason Onset Date Comments Refill Request 04/09/2022 Reason Onset Date Comments Refill Request 05/11/2022 Reason Onset Date Comments Refill Request 07/01/2022 Reason Comments Recheck Would like labs chec ked Reason Comments Menstrual Problem Reason Comments Discussion Reason Onset Date Comments Refill Request 10/25/2022 Reason Onset Date Comments Refill Request 10/31/2022 Reason Comments Rash Rash on right hand x 1 week that itches and narvaez Reason Comments Acute Visit Lump on r breast ricarda t she noticed about 1 month ago; used otc atb cream on it and the lump started to disappear Reason Comments Acute Visit Recheck skin lesion' s Reason Comments Follow-up Reason Comments Follow Up 2nd opinion, [place] s per Dr Friend, hiatal hernia Specialty Diagnoses / Procedures Referred By Contphuong t Referred To Contact General Surgery Diagnoses Gastroesophageal reflux disease, unspecified whether esophagitis present Procedures CONSULT TO GENERAL SURGERY OFFICE/OUTPATIENT [facility] HIGH MDM 60-74 MINUTES Meron Ram APRN.MACHINE CAGE MAKER [address] [place] [address] Referral ID Status Reason Start Date Expiration Date V isits Requested Visits Authorized [id number] Closed PCP Requested Referral 03/07/2023 03/06/2024 1 1 Reason Onset Date Comments Refill Request 05/02/2023 INFORMATION SOURCE (unrecogn ized section and content) DATE CREATED AUTHOR AUTHOR'S ORGANIZ ATION 12/27/2020 [facility] DATE CREATED AUTHOR AUTHOR'S ORGANIZ ATION 01/24/2022 [facility] DATE CREATED AUTHOR AUTHOR'S ORGANIZ ATION 03/02/2023 [facility] DATE CREATED AUTHOR AUTHOR'S ORGANIZ ATION 09/03/2023 [facility] Source Comments (unrecognize d section and content) In the event this informatio n is protected by the Federal Confidentiality of Alcohol and Drug Abuse Patient Records regulations: The Federal rules restrict any use of the information to criminally investigate or prosecute any alcohol or drug abuse patient.[facility] the event this information is protected by the Federal Confidentiality of Alcohol and Drug Abuse Patient Records regulations: The Federal rules restrict any use of the information to criminally investigate or prosecute any alcohol or drug abuse patient.[facility] the event this information is protected by the Federal Confidentiality of Alcohol and Drug Abuse Patient Records regulations: The Federal rules restrict any use of the information to criminally investigate or prosecute any alcohol or drug abuse patient.[facility] the event this information is protected by the Federal Confidentiality of Alcohol and Drug Abuse Patient Records regulations: The Federal rules restrict any use of the information to criminally investigate or prosecute any alcohol or drug abuse patient.[facility]In the event this information is protected by the Federal Confidentiality of Alcohol and Drug Abuse Patient Records regulations: The Federal rules restrict any use of the information to criminally investigate or prosecute any alcohol or drug abuse patient.[facility] the event this information is protected by the Federal Confidentiality of Alcohol and Drug Abuse Patient Records regulations: The Federal rules restrict any use of the information to criminally investigate or prosecute any alcohol or drug abuse patient.[facility] Columbus[facility] the event this information is protected by the Federal Confidentiality of Alcohol and Drug Abuse Patient Records regulations: The Federal rules restrict any use of the information to criminally investigate or prosecute any alcohol or drug abuse patient.[facility]In the event this information is protected by the Federal Confidentiality of Alcohol and Drug Abuse Patient Records regulations: The Federal rules restrict any use of the information to criminally investigate or prosecute any alcohol or drug abuse patient.[facility]In the event this information is protected by the Federal Confidentiality of Alcohol and Drug Abuse Patient Records regulations: The Federal rules restrict any use of the information to criminally investigate or prosecute any alcohol or drug abuse patient.[facility]In the event this information is protected by the Federal Confidentiality of Alcohol and Drug Abuse Patient Records regulations: The Federal rules restrict any use of the information to criminally investigate or prosecute any alcohol or drug abuse patient.[facility] ColumbusIn the event this information is protected by the Federal Confidentiality of Alcohol and Drug Abuse Patient Records regulations: The Federal rules restrict any use of the information to criminally investigate or prosecute any alcohol or drug abuse patient.[facility] ColumbusIn the event this information is protected by the Federal Confidentiality of Alcohol and Drug Abuse Patient Records regulations: The Federal rules restrict any use of the information to criminally investigate or prosecute any alcohol or drug abuse patient.[facility]In the event this information is protected by the Federal Confidentiality of Alcohol and Drug Abuse Patient Records regulations: The Federal rules restrict any use of the information to criminally investigate or prosecute any alcohol or drug abuse patient.[facility] ColumbusIn the event this information is protected by the Federal Confidentiality of Alcohol and Drug Abuse Patient Records regulations: The Federal rules restrict any use of the information to criminally investigate or prosecute any alcohol or drug abuse patient.[facility] ColumbusIn the event this information is protected by the Federal Confidentiality of Alcohol and Drug Abuse Patient Records regulations: The Federal rules restrict any use of the information to criminally investigate or prosecute any alcohol or drug abuse patient.[facility] ColumbusIn the event this information is protected by the Federal Confidentiality of Alcohol and Drug Abuse Patient Records regulations: The Federal rules restrict any use of the information to criminally investigate or prosecute any alcohol or drug abuse patient.[facility] ColumbusIn the event this information is protected by the Federal Confidentiality of Alcohol and Drug Abuse Patient Records regulations: The Federal rules restrict any use of the information to criminally investigate or prosecute any alcohol or drug abuse patient.[facility] ColumbusIn the event this information is protected by the Federal Confidentiality of Alcohol and Drug Abuse Patient Records regulations: The Federal rules restrict any use of the information to criminally investigate or prosecute any alcohol or drug abuse patient.[facility] ColumbusIn the event this information is protected by the Federal Confidentiality of Alcohol and Drug Abuse Patient Records regulations: The Federal rules restrict any use of the information to criminally investigate or prosecute any alcohol or drug abuse patient.[facility] ColumbusIn the event this information is protected by the Federal Confidentiality of Alcohol and Drug Abuse Patient Records regulations: The Federal rules restrict any use of the information to criminally investigate or prosecute any alcohol or drug abuse patient.[facility] ColumbusIn the event this information is protected by the Federal Confidentiality of Alcohol and Drug Abuse Patient Records regulations: The Federal rules restrict any use of the information to criminally investigate or prosecute any alcohol or drug abuse patient.[facility] ColumbusIn the event this information is protected by the Federal Confidentiality of Alcohol and Drug Abuse Patient Records regulations: The Federal rules restrict any use of the information to criminally investigate or prosecute any alcohol or drug abuse patient.[facility] ColumbusIn the event this information is protected by the Federal Confidentiality of Alcohol and Drug Abuse Patient Records regulations: The Federal rules restrict any use of the information to criminally investigate or prosecute any alcohol or drug abuse patient.[facility] ColumbusIn the event this information is protected by the Federal Confidentiality of Alcohol and Drug Abuse Patient Records regulations: The Federal rules restrict any use of the information to criminally investigate or prosecute any alcohol or drug abuse patient.[facility] ColumbusIn the event this information is protected by the Federal Confidentiality of Alcohol and Drug Abuse Patient Records regulations: The Federal rules restrict any use of the information to criminally investigate or prosecute any alcohol or drug abuse patient.[facility] ColumbusIn the event this information is protected by the Federal Confidentiality of Alcohol and Drug Abuse Patient Records regulations: The Federal rules restrict any use of the information to criminally investigate or prosecute any alcohol or drug abuse patient.[facility] ColumbusIn the event this information is protected by the Federal Confidentiality of Alcohol and Drug Abuse Patient Records regulations: The Federal rules restrict any use of the information to criminally investigate or prosecute any alcohol or drug abuse patient.[facility] ColumbusIn the event this information is protected by the Federal Confidentiality of Alcohol and Drug Abuse Patient Records regulations: The Federal rules restrict any use of the information to criminally investigate or prosecute any alcohol or drug abuse patient.[facility] ColumbusIn the event this information is protected by the Federal Confidentiality of Alcohol and Drug Abuse Patient Records regulations: The Federal rules restrict any use of the information to criminally investigate or prosecute any alcohol or drug abuse patient.[facility] Care Teams (unrecognized sec tion and content) Rotary Furnace Tender Relationship Specialty Start Date End Date Meron Ram, CLINICAL SALES CONSULTANT.MACHINE CAGE MAKER [address] [place] [address] PCP - General Family Practice 08/27/21 Rotary Furnace Tender Relationship Specialty Start Date End Date Meron Ram, CLINICAL SALES CONSULTANT.MACHINE CAGE MAKER [address] [place] [address] PCP - General Family Practice 08/27/21 Rotary Furnace Tender Relationship Specialty Start Date End Date Meron Ram, CLINICAL SALES CONSULTANT.MACHINE CAGE MAKER [address] [place] [address] PCP - General Family Practice 08/27/21 Rotary Furnace Tender Relationship Specialty Start Date End Date Meron Ram, CLINICAL SALES CONSULTANT.MACHINE CAGE MAKER [address] [place] [address] PCP - General Family Practice 08/27/21 Rotary Furnace Tender Relationship Specialty Start Date End Date Meron Ram, CLINICAL SALES CONSULTANT.MACHINE CAGE MAKER [address] [place] [address] PCP - General Family Practice 08/27/21 Rotary Furnace Tender Relationship Specialty Start Date End Date Meron Ram, CLINICAL SALES CONSULTANT.MACHINE CAGE MAKER [address] [place] [address] PCP - General Family Practice 08/27/21 Rotary Furnace Tender Relationship Specialty Start Date End Date Meron Ram, CLINICAL SALES CONSULTANT.MACHINE CAGE MAKER [address] [place] [address] PCP - General Family Practice 08/27/21 Rotary Furnace Tender Relationship Specialty Start Date End Date Meron Ram, CLINICAL SALES CONSULTANT.MACHINE CAGE MAKER [address] [place] [address] PCP - General Family Medicine 08/27/21 Rotary Furnace Tender Relationship Specialty Start Date End Date Meron Ram, CLINICAL SALES CONSULTANT.MACHINE CAGE MAKER [address] [place] [address] PCP - General Family Medicine 08/27/21 Rotary Furnace Tender Relationship Specialty Start Date End Date Meron Ram, CLINICAL SALES CONSULTANT.MACHINE CAGE MAKER [address] [place] [address] PCP - General Family Medicine 08/27/21 Rotary Furnace Tender Relationship Specialty Start Date End Date Meron Ram, CLINICAL SALES CONSULTANT.MACHINE CAGE MAKER [address] [place] [address] PCP - General Family Medicine 08/27/21 Rotary Furnace Tender Relationship Specialty Start Date End Date Meron Ram, CLINICAL SALES CONSULTANT.MACHINE CAGE MAKER [address] [place] [address] PCP - General Family Medicine 08/27/21 Rotary Furnace Tender Relationship Specialty Start Date End Date Meron Ram, CLINICAL SALES CONSULTANT.MACHINE CAGE MAKER [address] [place] [address] PCP - General Family Medicine 08/27/21 Rotary Furnace Tender Relationship Specialty Start Date End Date Meron Ram, CLINICAL SALES CONSULTANT.MACHINE CAGE MAKER [address] [place] [address] PCP - General Family Medicine 08/27/21 Rotary Furnace Tender Relationship Specialty Start Date End Date Meron Ram, CLINICAL SALES CONSULTANT.MACHINE CAGE MAKER [address] [place] [address] PCP - General Family Medicine 08/27/21 Rotary Furnace Tender Relationship Specialty Start Date End Date Meron Ram, CLINICAL SALES CONSULTANT.MACHINE CAGE MAKER [address] [place] [address] PCP - General Family Medicine 08/27/21 Rotary Furnace Tender Relationship Specialty Start Date End Date Meron Ram, CLINICAL SALES CONSULTANT.MACHINE CAGE MAKER [address] [place] [address] PCP - General Family Medicine 08/27/21 Rotary Furnace Tender Relationship Specialty Start Date End Date Artis Merino MD [address] [place], [place] [id number] PCP - General Family Medicine 09/07/22 Rotary Furnace Tender Relationship Specialty Start Date End Date Meron Ram, CLINICAL SALES CONSULTANT.MACHINE CAGE MAKER [address] [facility], [place] [address] PCP - General Family Medicine 08/27/21 Rotary Furnace Tender Relationship Specialty Start Date End Date Meron Ram, CLINICAL SALES CONSULTANT.MACHINE CAGE MAKER [address] [facility], [place] [id number] PCP - General Family Medicine 08/27/21 Rotary Furnace Tender Relationship Specialty Start Date End Date Meron Ram, CLINICAL SALES CONSULTANT.MACHINE CAGE MAKER [address] [facility], [place] [address] PCP - General Family Medicine 08/27/21 Rotary Furnace Tender Relationship Specialty Start Date End Date Meron Ram, CLINICAL SALES CONSULTANT.MACHINE CAGE MAKER [address] [facility], [place] [address] PCP - General Family Medicine 08/27/21 FOR RECORDS PERTAINING TO PATIENTS WHO ARE OR HAVE BEEN ENROLLED IN A CHEMICAL DEPENDENCY/SUBSTANCEABUSE PROGRAM, SOME INFORMATION MAY BE OMITTED. This clinical summary was aggregated from multiple sources. Caution should be exercised in using it in the provision of clinical care. This summary normalizes information from multiple sources, and as a consequence, information in this document may materially change the coding, format and clinical context of patient data. In addition, data may be omitted in some cases. CLINICAL DECISIONS SHOULD BE BASED ON THE PRIMARY CLINICAL RECORDS. [employer] provides no warranty or guarantee of the accuracy or completeness of information in this document.
[2023-09-12 20:26] LABS: Anion Gap 5 (5-15); BUN 9 mg/dL (7-18); BUN/Creat Ratio 10.2 RATIO (10-20); Calcium,Total 9.4 mg/dL (8.5-10.1); Chloride 103 mmol/L (98-107); Creatinine, Serum 0.88 mg/dL (0.55-1.02); EST Glomerular Filtration Rate 74 mL/min (>60); Est Glom Filt Rate - Afr Amer 89 mL/min (>60); Estimated Creatinine Clearance 80.86 ml/min; Glucose 147 mg/dL (74-106); Potassium 3.6 mmol/L (3.5-5.1); Sodium Level 136 mmol/L (136-145); Troponin-I HS (w/2H Reflex) 3 pg/mL (3.0-54.0)
[2023-09-12 21:03] LABS: D-Dimer Quantitative (DVT/PE) 0.42 FEU/ug/m (0.27-0.49)
[2023-09-12 21:11] VITALS: BP 128/71; PULSE 92; RESP 16; O2SAT 98
[2023-09-12 21:54] VITALS: BP 117/69; PULSE 89; RESP 16; O2SAT 98
[2023-09-12 22:05] LABS: Reflex Troponin-HS? (from REC) Y
== END 2023-09-12 21:56 | disposition home or self-care (01) ==
PROVIDERS: Emergency Provider Emergency Medicine; PCP Registered Nurse; Visit Provider Emergency Medicine
DX: R07.9 Chest pain, unspecified (principal); Z87.891 Personal history of nicotine dependence; T65.891A Toxic effect of other specified substances, accidental (unintentional), initial encounter; K21.9 Gastro-esophageal reflux disease without esophagitis; E78.00 Pure hypercholesterolemia, unspecified; F42.9 Obsessive-compulsive disorder, unspecified; Z79.899 Other long term (current) drug therapy; J45.909 Unspecified asthma, uncomplicated; Z79.51 Long term (current) use of inhaled steroids
CPT/HCPCS: 71045; 80048; 84484; 85025; 85379; 93005; 99284; A4216

== ENCOUNTER → 2023-10-03 | Outpatient (CLI) | payer MEDICAID, SELFPAY ==
--- NOTE | 2023-10-03 13:06 | CT_ITS ---
STUDY: CT TEMPORAL BONES WITHOUT CONTRAST - ATTN: I.A.C. S REASON FOR EXAM: Female, 43 years old. SYNCHRONOUS TINNITIS *IACs* RADIATION DOSAGE (If Supplied By Facility): CTDIvol = ( 71.96 ) mGy, DLP = ( 606.83 ) mGycm TECHNIQUE: The patient was scanned in a multi detector CT scanner. Transaxial imaging was performed without the administration of intravenous contrast material. Sagittal and coronal images were reconstructed. Individualized dose optimization techniques were used for this CT. COMPARISON: None. FINDINGS: RIGHT TEMPORAL BONE Normal right internal auditory canal. Normal visualized ossicles and tympanic cavity. Normal right cochlea and semicircular canals. Normal vestibular aqueduct. Normal right petrous carotid artery. Normal right jugular fossa. Normal right mastoid air cells. Normal right petrous apex. LEFT TEMPORAL BONE Normal left internal auditory canal. Normal visualized ossicles and tympanic cavity. Normal left cochlea and semicircular canals. Normal vestibular aqueduct. Normal left petrous carotid artery. Normal right jugular fossa. Normal left mastoid air cells. Normal left petrous apex. CT/Orb Sella Post Fossa Ear w/o IMPRESSION: Normal unenhanced CT examination of the bilateral temporal bones (I.A.C.''s). Electronically Signed: Korey Espinoza MD at 13:36 EST ,
== END | disposition home or self-care (01) ==
PROVIDERS: PCP Registered Nurse; Referring Provider Otolaryngology; Visit Provider Otolaryngology
DX: H93.A1 Pulsatile tinnitus, right ear (principal)
CPT/HCPCS: 70480

== ENCOUNTER 2024-04-27 12:12 | Emergency (ER) | payer MEDICAID, SELFPAY ==
[2024-04-27 12:12] VITALS: BP 127/90; PULSE 89; RESP 16; TEMP 35.8; O2SAT 98; BMI 26.8
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
== END 2024-04-27 12:51 | disposition home or self-care (01) ==
PROVIDERS: Emergency Provider Emergency Medicine; PCP Registered Nurse; Visit Provider Emergency Medicine
DX: S16.1XXA Strain of muscle, fascia and tendon at neck level, initial encounter (principal); E78.00 Pure hypercholesterolemia, unspecified; Z87.891 Personal history of nicotine dependence; S29.019A Strain of muscle and tendon of unspecified wall of thorax, initial encounter; V43.52XA Car driver injured in collision with other type car in traffic accident, initial encounter; Y92.488 Other paved roadways as the place of occurrence of the external cause; F42.9 Obsessive-compulsive disorder, unspecified; Z79.899 Other long term (current) drug therapy; F41.9 Anxiety disorder, unspecified; K21.9 Gastro-esophageal reflux disease without esophagitis; Z90.49 Acquired absence of other specified parts of digestive tract
CPT/HCPCS: 99282

== ENCOUNTER → 2024-08-05 | Outpatient (CLI) | payer MEDICAID, SELFPAY ==
[2024-08-05 14:27] LABS: Free T3 2.2 pg/mL (2.18-3.98)
[2024-08-05 18:36] LABS: T3 Total - Triiodothyronine 1.33 ng/mL (0.6-1.81)
== END | disposition home or self-care (01) ==
LOC: LAB 12:54
PROVIDERS: PCP Registered Nurse; Referring Provider Obstetrics & Gynecology; Visit Provider Obstetrics & Gynecology
DX: N93.9 Abnormal uterine and vaginal bleeding, unspecified (principal); Z84.89 Family history of other specified conditions
CPT/HCPCS: 36415; 84436; 84443; 84480; 84481

== ENCOUNTER 2024-12-07 15:57 | Emergency (ER) | payer MEDICAID, SELFPAY ==
[2024-12-07 15:57] VITALS: BP 142/92; PULSE 107; RESP 18; TEMP 36.7; O2SAT 98; BMI 28.0
--- NOTE | 2024-12-07 16:08 | EKG12_ITS ---
Test Reason : SOB Blood Pressure : */* mmHG Vent. Rate : 106 BPM Atrial Rate : 106 BPM P-R Int : 148 ms QRS Dur : 80 ms QT Int : 364 ms P-R-T Axes : 64 25 44 degrees QTcB Int : 483 ms Sinus tachycardia Nonspecific ST and T wave abnormality Abnormal ECG Confirmed by MARIA T MCLEAN, SASCHA ([id number]), clinical editor RA ADKINS ([id number]) on 12/09/2024 8:36:04 AM Referred By: Confirmed By: SASCHA LIVE MD
--- NOTE | 2024-12-07 16:09 | ED.VIS.DYS ---
HPI History of Present Illness Chief Complaint: Asthma Informant: patient Onset/Context/Timing Onset: Today and Yesterday Context: gradual Timing: Continuous Quality: Negative for Dyspnea on exertion, Orthopnea, PND or Wheezing Current Severity: Mild Maximum Severity: Mild Worsened by: Not Worsened By Nothing Relieved by: Not Relieved By Nothing Associated Symptoms Negative for cough Chest Pain: Positive for Burning Narrative Narrative: 44-year-old female history of asthma, OCD and anxiety. States that she was short of breath since yesterday. Gradual onset. Few occasional wheezes. No cough. No sputum. No hemoptysis. Burning discomfort in her chest. No recent vomiting, diarrhea or fever. She had COVID about 2 weeks ago. Denies any leg pain or swelling. No history of DVT or PE. No cardiac history other than mitral valve prolapse. PE Risk Factors: Negative for Cancer, OCP + Smoking + > 35, Prior DVT or PE, Recent immobilization, Recent surgery or Recent travel Prior similar symptoms: Yes Recent Illness/Hospitalization: No PFSH PFSH Medical History Genetic testing Esophagitis determined by endoscopy GERD (gastroesophageal reflux disease) OCD (obsessive compulsive disorder) Depression Anxiety Marijuana use Low iron High cholesterol Restless legs Back pain Dietary restriction History of hiatal hernia History of IBS Gastric reflux Asthma Former smoker History of echocardiogram Cardiology follow-up encounter Chest pain Regurgitation of food Mitral valve prolapse Home Medications ?Medication ?Instructions ?Recorded ?Last Taken ?Type albuterol sulfate 2.5 mg/3 mL 2.5 mg inhalation Q4H PRN PRN Sob 04/17/16 Unknown History (0.083 %) solution for nebulization &/Or Wheezing fluvoxamine 50 mg tablet 50 mg PO DAILY 06/19/21 06/18/21 20:00 History hydroxyzine HCl 50 mg tablet 50 mg PO TID 06/19/21 Unknown History vit D3-folic acid-vit B2-B6-B12 1 tab PO DAILY 06/19/21 Unknown History 2,000 unit-800 mcg-0.32 mg tablet albuterol 1 inh inhalation PRN 02/22/23 Unknown History atorvastatin 20 mg tablet (Lipitor) 20 mg PO QHS 02/22/23 Unknown History budesonide-formoterol HFA 160 inhalation 02/24/23 Unknown History mcg-4.5 mcg/actuation aerosol inhaler (Symbicort) cetirizine 10 mg tablet mg 02/24/23 Unknown History prednisone 20 mg tablet 40 mg (2 x 20 mg) PO DAILY 5 days 12/07/24 Unknown Rx #10 tabs Allergy/AdvReac Type Severity Reaction Status Date / Time Iodinated Contrast Media (iv Allergy Severe Anaphylaxis Verified 12/07/24 15:58 contrast) pantoprazole Allergy Intermediate Hives Verified 12/07/24 15:58 clindamycin Allergy Hives Verified 12/07/24 15:58 erythromycin base Allergy Hives Verified 12/07/24 15:58 oxcarbazepine (From Allergy Hives Verified 12/07/24 15:58 Trileptal) Penicillins Allergy Hives Verified 12/07/24 15:58 tree nut (tree nuts) Allergy Swelling Verified 12/07/24 15:58 guaifenesin (From Mucinex) AdvReac Intermediate Hives Verified 12/07/24 16:00 pseudoephedrine AdvReac Vomiting Verified 12/07/24 15:58 Surgical History H/O section History of appendectomy Social History Smoking Status: Smoker, status unknown how long ago did patient quit smoking: quit 2019 ROS ROS ED ROS Narrative Shortness of breath. Constitutional Constitutional ED: Denies chills or fever(s) Eyes Eyes: Denies blurry vision ENT ENT ED: Reports rhinorrhea; Denies ear pain Cardiovascular Cardiovascular: Reports chest pain and other Details: Burning nonexertional. Respiratory/Chest Respiratory/Chest: Denies cough or dyspnea Gastrointestinal Gastrointestinal: Denies abdominal pain, diarrhea, nausea or vomiting Genitourinary Genitourinary ED: Denies dysuria or hematuria Musculoskeletal Musculoskeletal: Denies arthralgias Integumentary Denies abscess Neurologic Neurologic: Denies headache(s) Psychiatric Psychiatric: Reports anxiety Endocrine Endocrinology: Denies cold intolerance Hematologic/Lymphatic Hematologic/Lymphatic: Denies easy bleeding Allergic/Immunologic Allergic/Immunologic ED: Denies mouth swelling, tongue swelling or urticaria EXAM Physical Exam Narrative Exam Narrative: Well-appearing 44-year-old female. Vital signs are stable afebrile. She does not look septic toxic no acute distress. Mildly anxious. Female friend at bedside. H EENT exam pupils round reactive light. Extra motions are intact. Neck nontender no JVD. No lymphadenopathy. Lungs clear to auscultation bilaterally. No rales, rhonchi or wheezing. Prolonged expiratory phase. Heart regular rhythm rate about 105 no murmur. Chest wall ribs nontender. Abdomen soft nontender. Moving all 4 extremities. Equal symmetrical radial pulses. 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 Dorsi plantarflexion intact. Calves are nontender without edema or cords. Equal symmetrical radial pulses. Back nontender. Neurologically she is awake alert. Answering questions following commands. She is mildly anxious. Const Vital Signs: 12/07/24 15:57 12/07/24 16:41 12/07/24 16:54 Temperature 98.1 F Temperature Source Oral Pulse Rate 107 H 104 H Respiratory Rate 18 18 Respiratory Effort Short of Breath Respiratory Depth Normal Respiratory Pattern Normal Tachypnea Blood Pressure 142/92 H Blood Pressure Mean 108 Pulse Ox 98 Oxygen Delivery Method Room Air Positive well nourished and well developed; Negative for obese, cachectic, contractures or unkempt General Appearance ED: well developed and NAD; Negative for unkempt, cachectic, contractures or pallor Nutritional Appearance: Negative for cachectic or obese HEENT Reports moist mucous membranes atraumatic; Negative for trauma or tenderness Eyes PERRL and EOMs intact bilaterally General Eye ED: Negative for pale conjunctiva or scleral icterus Neck no lymphadenopathy, supple, no meningeal signs and no JVD General: Negative for tenderness Lymph Lymphatic: Negative for other Resp normal respiratory effort and clear to auscultation bilaterally Resp Narrative: Prolonged expiratory phase. Effort and Inspection: Negative for pain with movement Auscultation: Negative for rales, rhonchi, wheezes or diminished lung sounds Cardio regular rhythm, S1 normal heart sound, S2 normal heart sound and no murmurs; Negative for regular rate Rate: tachycardic GI non-tender, non-distended and no masses Auscultation: normoactive bowel sounds Palpation: soft; Negative for tender, guarding or rebound tenderness present Back/Spine no CVA tenderness and normal to inspection General Back: Negative for CVA tenderness or tenderness Extremity normal to inspection General Extremety ED: Negative for edema or tenderness General Extremity: Negative for edema Neuro oriented x3 and CN's II-XII intact bilaterally [place] Coma Scale: document GCS findings Sensorium / Orientation: alert, oriented to person, oriented to place and oriented to time; Negative for orientation impaired, confused or lethargic Speech: speech normal Motor Exam: strength 5/5 throughout Psych mental status grossly normal Appearance: Negative for unkempt Attitude: No agitated and No other Mood & Affect: anxious; Negative for depressed or tearful Thought Process: normal thought process Skin no wounds and skin turgor normal General Skin Exam: Negative for jaundice or pallor Lesions: no lesions Rashes: no rashes Trauma: Negative for abrasion, laceration or puncture MDM MDM MDM Narrative Medical decision making narrative: 44-year-old female history of anxiety and asthma. Prolonged expiratory phase with 2 days of shortness of breath no cardiac history. No history of DVT or PE. Exam benign other than prolonged expiratory phase and mildly anxious. She will be given DuoNeb and albuterol aerosols prednisone. Chest x-ray and EKG will be obtained. Currently I do not think we need blood work. I do not think we need cardiac enzymes or D-dimer. Repeat exam patient is doing much better at 6:25 PM. After the Ativan. I think this was primarily a combination of anxiety probably a small component of asthma and possibly some seasonal allergies. She will be discharged home. Currently she is not having any shortness of breath or wheezing. Her chest x-ray and EKG were unremarkable. She is comfortable being discharged to home. I will write her for short course of prednisone 40 mg a day for 5 days as needed. History & Record Review Discussion w/independent historian: Patient and Friend Additional record(s) reviewed:: Prior inpatient record, Prior outpatient record, Prior ED visit and Prior labs Lab Data Attestation: I reviewed the patient's lab results. Radiography Chest X-Ray - ED: 2 View, Read by ED Physician, Normal, Heart, Lungs, Mediastinum, Bony Structures, No Acute Disease and Chronic Changes Diagnostic Testing: Clinical Impression(s) from Imaging Studies Chest X-Ray 12/07/24 16:32 IMPRESSION: NEGATIVE CHEST Reading Location: [facility] Chest x-ray, 2 views, AP and lateral, interpreted by myself shows no acute abnormality. Normal cardiac silhouette. Normal lung perla. Chronic changes. No pneumothorax. No pneumonia. No effusions. No infiltrate. No edema. Rhythm Strip Rhythm Strip: Sinus Tach Rate: 106 Ectopy: None EKG Initial EKG: Attestation: I personally reviewed and interpreted this EKG as follows: Interpretation: No Acute Injury Pattern and Sinus Tachycardia Comments: Sinus tachycardia rate of 106 no acute signs of IN, nor ischemia nor S1Q3T3. No acute change from prior EKG from August 2023. Discharge Plan Triage Chief Complaint: Asthma ED Provider: Jim Plasencia Dx/Rx/DC Orders Clinical Impression: Acute dyspnea, Anxiety, Asthma Instructions: Anxiety Disorders Tx, Asthma Prescriptions: New prednisone 20 mg tablet 40 mg PO DAILY 5 Days Qty: 10 0RF No Action albuterol sulfate 2.5 MG/3 ML solution for nebulization 2.5 mg inhalation Q4H PRN PRN (Reason: Sob &/Or Wheezing) fluvoxamine 50 mg Tablet 50 mg PO DAILY hydroxyzine HCl [Atarax] 50 mg Tablet 50 mg PO TID vit D3-folic [id number] 2,000-800-0.32 unit-mcg-mg Tablet 1 tab PO DAILY albuterol 1 inh inhalation PRN atorvastatin [Lipitor] 20 mg tablet 20 mg PO QHS cetirizine 10 mg tablet Patient Comments: TAKE 1 TABLET BY MOUTH ONCE DAILY budesonide-formoterol [Symbicort] 160-4.5 mcg/actuation HFA aerosol inhaler INHALATION Primary Care Provider: Meron Ram NP Referrals: Meron Ram NP, [facility] [Primary Care Provider] - 3-5 Days if not improving Activity Restrictions/Additional Instructions: Follow-up with your primary care provider and/or your psychologist as needed. Inhaler as needed. Prednisone 40 mg a day as needed for wheezing or seasonal allergies. Print Language: Monegasque Disposition Disposition: Home, Self Care
--- NOTE | 2024-12-07 16:32 | RAD_ITS ---
PROCEDURE: CHEST PA AND LATERAL 12/07/2024 REASON FOR EXAM: DYSPNEA TECHNIQUE: Frontal and lateral views of the chest. FINDINGS: Hardware: None Heart: The heart size is normal. Mediastinum: The mediastinal contour is unremarkable. Lungs: The lungs are clear. Bones: The bones are unremarkable. RAD/Chest PA and Lateral IMPRESSION: NEGATIVE CHEST Reading Location: [id number]
[2024-12-07] MEDS: Ipratropium/Albuterol Sulfate 3 ML AMPUL.NEB INHALATION (16:35)
[2024-12-07] MEDS: Albuterol 2.5 MG/3 ML VIAL.NEB. INHALATION (16:36)
[2024-12-07 16:41] VITALS: PULSE 104; RESP 18
[2024-12-07] MEDS: predniSONE 20 MG Tablet 60 MG PO (16:49)
[2024-12-07] MEDS: LORazepam 1 MG Tablet PO (17:12)
[2024-12-07 18:34] VITALS: BP 128/70; PULSE 70; RESP 16; TEMP 36.8; O2SAT 99
== END 2024-12-07 18:35 | disposition home or self-care (01) ==
PROVIDERS: Emergency Provider Emergency Medicine; PCP Registered Nurse; Visit Provider Emergency Medicine
DX: R06.03 Acute respiratory distress (principal); F41.9 Anxiety disorder, unspecified; Z87.891 Personal history of nicotine dependence; E78.00 Pure hypercholesterolemia, unspecified; J45.909 Unspecified asthma, uncomplicated; Z90.79 Acquired absence of other genital organ(s); K21.9 Gastro-esophageal reflux disease without esophagitis; F42.9 Obsessive-compulsive disorder, unspecified
CPT/HCPCS: 71046; 93005; 94640; 99283